=== PATIENT | male | born 1965 | race Caucasian/White ===

== ENCOUNTER 2022-09-14 11:56 | Outpatient (OUT) | payer MEDICARE, MEDICAID, SELFPAY ==
[2022-09-14 12:43] LABS: Basophils Absolute Auto 0.1 10^3/uL (0.0-0.1); Basophils Percent Auto 1.4 % (0.2-2.0); Eosinophils Absolute Auto 0.2 10^3/uL (0.0-0.7); Hematocrit 50.3 % (42.0-54.0); Hemoglobin 15.9 g/dL (14.0-18.0); Immature Granulocytes Abs Auto 0.06 10^3/uL (0.00-0.03); Immature Granulocytes Pct Auto 1.2 % (0.0-0.5); Lymphocytes Absolute Auto 1.2 10^3/uL (1.2-3.8); Lymphocytes Percent Auto 24.6 % (20.5-60.0); Mean Corpuscular HGB Conc 31.6 g/dL (29.9-35.2); Mean Corpuscular Hemoglobin 26.6 pg (25.9-34.0); Mean Corpuscular Volume 84.1 fL (80.0-94.0); Monocytes Absolute Auto 0.4 10^3/uL (0.3-0.8); Monocytes Percent Auto 8.4 % (1.7-12.0); Neutrophils Percent Auto 60.4 % (43.0-75.0); Platelet Count 231 10^3/uL (150-450); Red Blood Count 5.98 10^6/uL (4.70-6.10); Red Cell Distribution Width 13.6 % (11.0-15.0)
[2022-09-14 13:00] LABS: Alanine Aminotransferase 20 U/L (16-63); Albumin Globulin Ratio 1.2; Albumin Level 3.9 g/dL (3.4-5.0); Alkaline Phosphatase 84 U/L (46-116); Anion Gap 12.2; Aspartate Amino Transferase 15 U/L (15-37); BUN Creatinine Ratio 11.5; Bilirubin Total 0.8 mg/dL (0.2-1.0); Calcium 9.2 mg/dL (8.5-10.1); Carbon Dioxide 27.2 mmol/L (21.0-32.0); Chloride 102 mmol/L (98-107); Chol HDL Ratio 4.3; Cholesterol 162 mg/dL (<=200); Estimated GFR (African America >60 (>=60); Estimated GFR (Non-African Ame >60 (>=60); Globulin 3.3 g/dL; Glucose 109 mg/dL (74-106); HDL Cholesterol 38 mg/dL (40-60); Potassium 4.4 mmol/L (3.5-5.1); Sodium 137 mmol/L (136-145); Total Protein 7.2 g/dL (6.4-8.2); Triglycerides 144 mg/dL (<=150); VLDL CHOLESTEROL 28.8 mg/dL
== END 2022-09-14 11:57 ==
LOC: LAB 12:01
PROVIDERS: PCP Internal Medicine; Visit Provider Internal Medicine
DX: E78.5 Hyperlipidemia, unspecified (principal); I10 Essential (primary) hypertension
CPT/HCPCS: 36415; 80053; 80061; 85025

== ENCOUNTER 2023-03-02 13:32 | Outpatient (OUT) | payer MEDICARE, MEDICAID, SELFPAY ==
[2023-03-02 14:19] LABS: Basophils Absolute Auto 0.1 10^3/uL (0.0-0.1); Basophils Percent Auto 1.4 % (0.2-2.0); Eosinophils Absolute Auto 0.3 10^3/uL (0.0-0.7); Hematocrit 50.4 % (42.0-54.0); Hemoglobin 15.6 g/dL (14.0-18.0); Immature Granulocytes Abs Auto 0.09 10^3/uL (0.00-0.03); Immature Granulocytes Pct Auto 1.6 % (0.0-0.5); Lymphocytes Absolute Auto 1.3 10^3/uL (1.2-3.8); Mean Corpuscular Hemoglobin 26.4 pg (25.9-34.0); Mean Corpuscular Volume 85.4 fL (80.0-94.0); Mean Platelet Volume 10.1 fL (9.5-13.5); Monocytes Absolute Auto 0.5 10^3/uL (0.3-0.8); Monocytes Percent Auto 8.8 % (1.7-12.0); Neutrophils Absolute Auto 3.5 10^3/uL (1.4-6.5); Neutrophils Percent Auto 60.2 % (43.0-75.0); Platelet Count 209 10^3/uL (150-450); Red Cell Distribution Width 13.9 % (11.0-15.0); White Blood Count 5.8 10^3/uL (4.0-11.0)
[2023-03-02 14:36] LABS: Alanine Aminotransferase 21 U/L (16-63); Albumin Level 3.9 g/dL (3.4-5.0); Alkaline Phosphatase 93 U/L (46-116); Anion Gap 14.3; Aspartate Amino Transferase 27 U/L (15-37); Bilirubin Total 0.9 mg/dL (0.2-1.0); Calcium 8.8 mg/dL (8.5-10.1); Carbon Dioxide 25.6 mmol/L (21.0-32.0); Chloride 105 mmol/L (98-107); Estimated GFR (African America >60 (>=60); Estimated GFR (Non-African Ame >60 (>=60); Globulin 3.8 g/dL; Glucose 95 mg/dL (74-106); Potassium 4.9 mmol/L (3.5-5.1); Sodium 140 mmol/L (136-145); Total Protein 7.7 g/dL (6.4-8.2)
--- OUTSIDE RECORDS SUMMARY | 2023-03-17 01:26 | XMS_ITS | CCD ---
Author Name Unknown Address [address] [place] [address] Organization [facility] Care Team Providers Care Computer Systems Security Administrator Name Role Phone PHYSICIAN, DEFAULT Admitting Unavailable PHYSICIAN, DEFAULT Attending Unavailable AICHHOLZ, LULI Primary Care Unavailable PHYSICIAN, DEFAULT Admitting Unavailable PHYSICIAN, DEFAULT Attending Unavailable AICHHOLZ, LULI Primary Care Unavailable PHYSICIAN, DEFAULT Admitting Unavailable PHYSICIAN, DEFAULT Attending Unavailable AICHHOLZ, LULI Primary Care Unavailable PHYSICIAN, DEFAULT Admitting Unavailable PHYSICIAN, DEFAULT Attending Unavailable AICHHOLZ, LULI Primary Care Unavailable Naveen King Physician Unavailable Star Sorenson Primary Care Physician Unavailab le FAWWAD, CABRERA H Consulting Unavailable FAWWAD, CABRERA H Primary Care Unavailable FAWWAD, CABRERA H Admitting Unavailable FAWWAD, CABRERA H Attending Unavailable DR ILYA MORROW Consulting Unavailable FAWWAD, CABRERA H Primary Care Unavailable FAWWAD, CABRERA H Admitting Unavailable FAWWAD, CABRERA H Attending Unavailable FAWWAD, CABRERA H Consulting Unavailable AKILAH ELENA Admitting Unavailable FAWWAD, CABRERA H Primary Care Unavailable AKILAH ELENA Attending Unavailable DR ILYA MORROW Consulting Unavailable AKILAH ELENA Consulting Unavailable GUSTAVO VILLEDA Admitting Unavailable PARAMJIT RUIZ Consulting Unavailable FAWWAD, CABRERA H Primary Care Unavailable GUSTAVO VILLEDA Attending Unavailable EDGAR MASSEY Consulting Unavailable ANTWAN GUERRERO Consulting Unavailable BRYSON, EDGAR Admitting Unavailable FAWWAD, CABRERA H Primary Care Unavailable EDGAR MASSEY Attending Unavailable BRYSON, EDGAR Consulting Unavailable FAWWAD, CABRERA H Consulting Unavailable FAWWAD, CABRERA H Primary Care Unavailable FAWWAD, CABRERA H Admitting Unavailable FAWWAD, CABRERA H Attending Unavailable Shaikh Dela Cruz Unavailable Allergies Allergy Classification Reported Allergen(s) Allergy Type Date of Onset Reaction(s) Facility (2 sources) Amoxicillin; Translations: [Amoxicillin] Drug Allergy 4 Unknown Reaction [facility] (2 sources) Ampicillin; Translations: [Ampicillin] Drug Allergy 4 Unknown Reaction [facility] (1 source) Sulfonamides (Antibiotic) Allergy to Substance 8 Unknown Reaction [facility] (1 source) Chocolate Drug allergy (disorder) 5 [facility] (1 source) Clofazimine Drug Allergy [facility] (1 source) Hops extract Drug Allergy [facility] (1 source) Penicillins Drug allergy (disorder) 4 [facility] (1 source) Sulfonamides (Antibiotic) Drug allergy (disorder) 4 [facility] (1 source) Misc-Food; Translations: [Misc-Food] Food allergy (disorder) 0 [facility] Medications Completed/Discontinued Medications Medication Drug Class(es) Dates Sig (Normalized) Sig (Original) ciprofloxacin 500 mg oral tablet (2 sources) Quinolone Antimicrobial Start: 09-17-2017 take 500 mg by mouth twice daily Ciprofloxacin Hcl [Cipro] 500 MG Oral Twice daily September 17, 2017 Active dicyclomine hydrochloride 20 mg oral tablet (1 source) Anticholinergic Start: 09-14-2021 take 1 tablet by mouth three times daily Dicyclomine HCl - 20 MG Oral Tablet take 1 tablet by mouth three times a day Quantity: 21 Refills: 0 Ordered: 07-Oct-2021 DO Start : 14-Sep-2021 Active doxycycline hyclate 100 mg oral capsule (1 source) Tetracycline-class Drug Start: 11-10-2021 take 1 capsule by mouth twice daily Doxycycline Hyclate 100 MG Oral Capsule take 1 capsule by mouth twice a day Quantity: 20 Refills: 0 Ordered: 10-Nov-2021 DO Start : 10-Nov-2021 Active metroNIDAZOLE 500 mg oral tablet (2 sources) Nitroimidazole Antimicrobial Start: 09-17-2017 End: 09-24-2017 take 500 mg by mouth every eight hours Metronidazole [Flagyl] 500 MG Oral Q8H 16 10September 17, 2017 September 24, 2017 Discontinued naproxen 500 mg oral tablet (2 sources) Nonsteroidal Anti-inflammatory Drug Start: 09-17-2017 take 500 mg by mouth every twelve hours at mealtime Naproxen [Naprosyn] 500 MG Oral Q12H September 17, 2017 Active administer with food or milk potassium chloride 10 meq extended release oral tablet (1 source) Start: 08-07-2021 Potassium Chloride ER 10 MEQ Oral Tablet Extended Release Quantity: 90 Refills: 0 Ordered: 16-Jun-2022 DO Start : 07-Aug-2021 Active promethazine hydrochloride 25 mg oral tablet (2 sources) Phenothiazine Start: 09-17-2017 take 25 mg by mouth every six hours as needed for nausea Promethazine 25 MG Oral Q6H PRN For Nausea September 17, 2017 Active 24 hr propranolol hydrochloride 120 mg extended release oral capsule (1 source) beta-Adrenergic Neymar Start: 07-20-2022 take 1 capsule by mouth every twenty-four hours Propranolol HCl ER 120 MG Oral Capsule Extended Release 24 Hour Quantity: 30 Refills: 0 Ordered: 20-Jul-2022 DO Start : 20-Jul-2022 Active rosuvastatin calcium 20 mg oral tablet (2 sources) HMG-CoA Reductase Inhibitor Start: 07-20-2022 Rosuvastatin Calcium 20 MG Oral Tablet Quantity: 90 Refills: 0 Ordered: 20-Jul-2022 DO Start : 20-Jul-2022 Active Start: 08-07-2021 Rosuvastatin C alcium 10 MG Oral Tablet Quantity: 90 Refills: 0 Ordered: 16-Jun-2022 DO Start : 07-Aug-2021 Active tiZANidine 4 mg oral tablet (1 source) Central alpha-2 Adrenergic Agonist Start: 04-25-2021 tiZANidine HCl - 4 M G Oral Tablet Quantity: 90 Refills: 0 Ordered: 04-Aug-2021 DO Start : 25-Apr-2021 Active traZODone hydrochloride 50 mg oral tablet (1 source) Serotonin Reuptake Inhibitor Start: 04-25-2021 traZODone HCl - 50 M G Oral Tablet Quantity: 90 Refills: 0 Ordered: 18-Aug-2021 DO Start : 25-Apr-2021 Active Problems Active Problems Problem Classification Problem Date Documented Da te Episodic/Chronic Acute cerebrovascular disease (1 source) Ischemic stroke; Translations: [Cerebral artery occlusion, unspecified with cerebral infarction] Chronic Anxiety disorders (1 source) Anxiety disorder, unspecified; Translations: [ANXIETY DISORDER UNSPECIFIED] Onset: 11-11-2021 Chronic Diseases of white blood cells (4 sources) Disorder of white blood cells, unspecified; Translations: [DISORDER OF WHITE BLOOD CELLS UNS] Onset: 10-10-2021 Chronic Disorders of lipid metabolism (4 sources) Hyperlipidemia, unspecified; Translations: [HYPERLIPIDEMIA UNSPECIFIED] Onset: 07-23-2021 Chronic E Codes: Struck by; against (1 source) Striking against or struck by other objects, initial encounter; Translations: [STRIKING AGNST/STRUCK OTH OBJ INIT] Onset: 11-11-2021 Episodic Esophageal disorders (1 source) Gastro-esophageal reflux disease without esophagitis; Translations: [GERD WITHOUT ESOPHAGITIS] Onset: 11-11-2021 Chronic Essential hypertension (1 source) Essential (primary) hypertension; Translations: [ESSENTIAL PRIMARY HYPERTENSION] Onset: 11-11-2021 Chronic Immunizations and screening for infectious disease (1 source) Encounter for immunization; Translations: [ENCOUNTER FOR IMMUNIZATION] Onset: 11-11-2021 Episodic Mood disorders (1 source) Major depressive disorder, single episode, unspecified; Translations: [AUNG DEPRESS D/O SINGLE EPIS UNS] Onset: 11-11-2021 Chronic Occlusion or stenosis of precerebral arteries (4 sources) Occlusion and stenosis of bilateral carotid arteries; Translations: [OCCLUSION AND STENOS DANIELLE CAROTID ART] Onset: 01-03-2021 Chronic Open wounds of extremities (4 sources) Laceration without foreign body, left foot, initial encounter; Translations: [LACERATION W/O FB LT FOOT INITIAL] Onset: 11-09-2021 Episodic Osteoarthritis (1 source) Unspecified osteoarthritis, unspecified site; Translations: [UNSPECIFIED OSTEOARTHRITIS UNS SITE] Onset: 11-11-2021 Chronic Other aftercare (1 source) [facility] (current) use of aspirin; Translations: [PROJECT PRODUCTION ENGINEER 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 USE OF ASPIRIN] Onset: 11-11-2021 Episodic Other aftercare (1 source) Other intermediate manager (current) drug therapy; Translations: [OTH PROJECT PRODUCTION ENGINEER CURRENT DRUG THERAPY] Onset: 11-11-2021 Episodic Other connective tissue disease (1 source) Fibromyalgia; Translations: [FIBROMYALGIA] Onset: 11-11-2021 Episodic Other lower respiratory disease (1 source) Personal history of pneumonia (recurrent); Translations: [PERSONAL HX OF PNEUMONIA RECURRENT] Onset: 11-11-2021 Episodic Other nervous system disorders (1 source) Polyneuropathy, unspecified; Translations: [POLYNEUROPATHY UNSPECIFIED] Onset: 11-11-2021 Chronic Other nutritional; endocrine; and metabolic disorders (1 source) H/O: raised blood lipids; Translations: [Personal history of other endocrine, metabolic, and immunity disorders] Episodic Other screening for suspected conditions (not mental disorders or infectious disease) (4 sources) Abnormal findings on diagnostic imaging of other specified body structures; Translations: [ABNORML FIND DX IMG OT BODY STRUC] Onset: 12-18-2021 Chronic Residual codes; unclassified (1 source) Acquired absence of other specified parts of digestive tract; Translations: [ACQ ABSENCE OT PART DIGESTV TRACT] Onset: 11-11-2021 Episodic Past or Other Problems Problem Classification Problem Date Documented Da te Episodic/Chronic Abdominal pain (4 sources) Right lower quadrant pain; Translations: [RIGHT LOWER QUADRANT PAIN] Onset: 09-14-2021 Episodic Genitourinary symptoms and ill-defined conditions (1 source) Hematuria, unspecified; Translations: [HEMATURIA UNSPECIFIED] Onset: 09-16-2021 Episodic Nausea and vomiting (1 source) Nausea with vomiting, unspecified; Translations: [NAUSEA WITH VOMITING UNSPECIFIED] Onset: 09-16-2021 Episodic Other gastrointestinal disorders (1 source) Diarrhea, unspecified; Translations: [DIARRHEA UNSPECIFIED] Onset: 09-16-2021 Episodic Screening and history of mental health and substance abuse codes (1 source) Personal history of nicotine dependence; Translations: [PERSONAL HISTORY OF NICOTINE DEPEND] Onset: 09-16-2021 Episodic Results Test Name Value Interpretation Reference Range Facil it Blood Pressure Cuff Sizeon 0 07-23-2022 Adult depression screening assessment No DB-Whqrwkibs-Zys tlake [facility] DO Work Phone: Fall risk assessment b) One or more fall s in the last year ZV-Gbeimhxyx-Dipawdk e [facility] DO Work Phone: Tobacco use status CPHS b) No M I-Ivnajpgfk-Ktiynfnj [facility] DO Work Phone: Blood Pressure Cuff Size Adult OA-Izpcehgvl-Mgsxoyfh [facility] DO Work Phone: CT CHEST WO CONon 12-18-2021 CT CHEST WO CON EXAMINATION: CT CHES T WO CON HISTORY: Imaging result abnormal COMPARISON: CT abdomen pelvis 09/14/2021, CT chest abdomen pelvis 01/12/2011 TECHNIQUE: Axial, Coronal, and Sagittal images were created without the administration of IV contrast material. Dose reduction techniques were achieved by using automated exposure control and/or adjustment of mA and/or kV according to patient size and/or use of iterative reconstruction technique. FINDINGS: LUNGS: No visible pulmonary disease. PLEURA: No mass, effusion, or pneumothorax. VASCULATURE: No abnormality. DAIANA: No mass or adenopathy. MEDIASTINUM: Stable fluid collection within the lower posterior mediastinum posterior heart and along the right margin of the distal esophagus, 3.2 x 2.2 x 3.0 cm CARDIAC: No enlargement or pericardial thickening. AORTA: No aneurysm or dissection. CHEST WALL: No mass or axillary adenopathy. BONES: No bone lesion or fracture. LIMITED ABDOMEN: No suspicious findings. Limited images of the upper abdomen. OTHER: Negative. IMPRESSION: 1. Stable, small nonspecific fluid collection within the posterior inferior mediastinum along the right margin of the esophagus. This is new compared to 2010 and may represent sequela of prior surgery, trauma, or infection. No esophageal wall thickening, thinning, or convincing involvement. Electronically authenticated by: ILYA MORROW Date: 2021-12-18 13:53 Normal [facility] PROTEIN ELECTROPHERESIS URIN E RANDOMon 10-14-2021 Albumin, U 24.0 % Normal [facility] [place] [facility] Comment on above: Performed By: #### U PTE #### [facility] [address] [place] [address] Dr. Georgina Urbina Alpha-1 Globulin U 9.8 % Normal [facility] Comment on above: Performed By: #### U PTE #### [facility] [address], [place] [address] Dr. Georgina Urbina Alpha-2 Glubulin U 21.5 % Normal [facility] Comment on above: Performed By: #### U PTE #### [facility] [address] [place] [address] [address] Georgina Urbina Beta Globulin, U 27.8 % Normal [facility] Comment on above: Performed By: #### U PTE #### [facility] [address] [address] [address] Georgina Urbina Gamma Globulin U 16.9 % Normal [facility] Comment on above: Performed By: #### U PTE #### [facility] [address] [place] [address] Dr. Georgina Urbina M-Marlo, % Not Observed Normal Not Observed [facility] Comment on above: Performed By: #### U PTE #### [facility] [address] [place] [address] Dr. Georgina Urbina PDF . Normal [facility] [place] [facility] Comment on above: Performed By: #### U PTE #### [facility] [address] [place] [address] Dr. Georgina Urbina Please note: Comment Normal [facility] Comment on above: Result Comment: Prot ein electrophoresis scan will follow via computer, mail, or seamstress fitter delivery. Performed By: #### U PTE #### [facility] [address] [place] [address] Dr. Georgina Urbina Protein (U) [Mass/Vol] 7.2 mg/dL Normal Not Estab. Th [facility] Comment on above: Performed By: #### U PTE #### [facility] [address] [place] [address] Dr. Georgina Urbina IMMUNOFIXATION ELEC, PROTEIN ELECon 10-13-2021 Albumin [Mass/Vol] 3.8 g/dL Normal 2.9-4.4 [facility] Comment on above: Performed By: #### I MFXPRT #### [facility] [address] [place] [address] Dr. Georgina Urbina Albumin/Globulin [Mass ratio] 1.4 {ratio} Normal 0.7-1 .7 [facility] Comment on above: Performed By: #### I MFXPRT #### [facility] [address] [address] [address] Georgina Urbina Asmvk-6-Ykqocswi 0.3 g/dL Normal 0.0-0.4 [facility] Comment on above: Performed By: #### I MFXPRT #### [facility] [address] [place] [address] Dr. Georgina Urbina Hbfkj-3-Crzjlpyj 0.6 g/dL Normal 0.4-1.0 [facility] Comment on above: Performed By: #### I MFXPRT #### [facility] [address] [place] [address] Dr. Georgina Urbina Beta Globulin 1.2 g/dL Normal 0.7-1.3 [facility] Comment on above: Performed By: #### I MFXPRT #### [facility] [address] [place] [address] Dr. Georgina Urbnia Gamma Globulin 0.7 g/dL Normal 0.4-1.8 [facility] Comment on above: Performed By: #### I MFXPRT #### [facility] [address] [place] [address] Dr. Georgina Urbina Globulin (S) [Mass/Vol] 2.8 g/dL Normal 2.2-3.9 [facility] Comment on above: Performed By: #### I MFXPRT #### [facility] [address] [place] [address] Dr. Georgina Urbina Immunofixation Result, Serum Comment Normal [facility] Comment on above: Result Comment: No m onoclonality detected. Performed By: #### I MFXPRT #### [facility] [address] [place] [address] Dr. Georgina Urbina Immunoglobulin A, Qn, Serum 199 mg/dL Normal 90-386 [facility] Comment on above: Performed By: #### I MFXPRT #### [facility] [address] [place] [address] Dr. Georgina Urbina Immunoglobulin G, Qn, Serum 780 mg/dL Normal 603-1613 [facility] Comment on above: Performed By: #### I MFXPRT #### [facility] [address] [place] [address] Dr. Georgina Urbina Immunoglobulin M, Qn, Serum 50 mg/dL Normal 20-172 [facility] Comment on above: Performed By: #### I MFXPRT #### [facility] [address] [place] [address] Dr. Georgina Urbina M-Marlo Not Observed Normal Not Observed [facility] Comment on above: Performed By: #### I MFXPRT #### [facility] [address] [place] [address] Dr. Georgina Urbina PDF . Normal [facility] [place] [facility] Comment on above: Performed By: #### I MFXPRT #### [facility] [address] [place] [address] Dr. Georgina Urbina Please note: Comment Normal [facility] Comment on above: Result Comment: Prot ein electrophoresis scan will follow via computer, mail, or seamstress fitter delivery. Performed By: #### I MFXPRT #### [facility] [address] [place] [address] Dr. Georgina Urbina Protein [Mass/Vol] 6.6 g/dL Normal 6.0-8.5 [facility] Comment on above: Performed By: #### I MFXPRT #### [facility] [address] [place] [address] Dr. Georgina Urbina IMMUNOGLOBULINS IGA/IGM/IGG QUANTITATIVEon 10-11-2021 Immunoglobulin A, Qn, Serum 200 mg/dL Normal 90-386 [facility] Comment on above: Performed By: #### I MFXPRT #### [facility] [address] [place] [address] Dr. Georgina Urbina Immunoglobulin G, Qn, Serum 767 mg/dL Normal 603-1613 [facility] Comment on above: Performed By: #### I MFXPRT #### [facility] [address] [place] [address] Dr. Georgina Urbina Immunoglobulin M, Qn, Serum 58 mg/dL Normal 20-172 [facility] Comment on above: Performed By: #### I MFXPRT #### [facility] [address] [place] [address] Dr. Georgina Urbina CBC AUTO DIFFon 09-14-2021 BASO # 0.1 103/ul Normal 0.0-0.1 [facility] [place] [facility] Comment on above: Performed By: #### I MFXPRT #### [facility] [address] [place] [address] Dr. Georgina Urbina Basophils/100 WBC (Bld) 0.7 % Normal 0.2-2.0 [facility] Comment on above: Performed By: #### I MFXPRT #### [facility] [address] [place] [address] Dr. Georgina Urbina EO # 0.1 103/ul Normal 0.0-0.7 [facility] Comment on above: Performed By: #### I MFXPRT #### [facility] [address] [place] [address] Dr. Georgina Urbina Eosinophils/100 WBC (Bld) 0.9 % Normal 0.9-7.0 [facility] Comment on above: Performed By: #### I MFXPRT #### [facility] [address] [place] [address] Dr. Georgina Urbina Erythrocyte distribution wid th (RBC) [Ratio] 13.5 % Normal 11.0-15.0 [facility] Comment on above: Performed By: #### I MFXPRT #### [facility] [address] [place] [address] Dr. Georgina Urbina Hematocrit (Bld) [Volume fraction] 46.9 % Normal 4 2.0-54.0 [facility] Comment on above: Performed By: #### I MFXPRT #### [facility] [address] [place] [address] Dr. Georgina Urbina Hemoglobin (Bld) [Mass/Vol] 15.1 g/dL Normal 14.0-18. 0 [facility] Comment on above: Performed By: #### I MFXPRT #### [facility] [address] [place] [address] Dr. Georgina Urbina IG # 0.05 10e3/ul Critically high 0.00-0.03 [facility] Comment on above: Performed By: #### I MFXPRT #### [facility] [address] [place] [address] Dr. Georgina Urbina IG % 0.7 % Critically high 0.0-0.5 [facility] Comment on above: Performed By: #### I MFXPRT #### [facility] [address] [place] [address] Dr. Georgina Urbina LYMPH # 0.6 103/ul Critically low 1.2-3.8 [facility] Comment on above: Performed By: #### I MFXPRT #### [facility] [address] [place] [address] Dr. Georgina Urbina Lymphocytes/100 WBC (Bld) 7.9 % Critically low 20.5-6 0.0 [facility] Comment on above: Performed By: #### I MFXPRT #### [facility] [address] [place] [address] Dr. Georgina Urbina MANUAL DIFF REQ NO Normal [facility] Comment on above: Performed By: #### I MFXPRT #### [facility] [address] [place] [address] Dr. Georgina Urbina MCH (RBC) [Entitic mass] 27.3 pg Normal 25.9-34.0 [facility] Comment on above: Performed By: #### I MFXPRT #### [facility] [address] [place] [address] Dr. Georgina Urbina MCHC (RBC) [Mass/Vol] 32.2 g/dL Normal 29.9-35.2 [facility] Comment on above: Performed By: #### I MFXPRT #### [facility] [address] [place] [address] Dr. Georgina Urbina MCV (RBC) [Entitic vol] 84.7 fL Normal 80.0-94.0 [facility] Comment on above: Performed By: #### I MFXPRT #### [facility] [address] [place] [address] Dr. Georgina Urbina MONO # 0.3 103/ul Normal 0.3-0.8 [facility] [place] [facility] Comment on above: Performed By: #### I MFXPRT #### [facility] [address] [place] [address] Dr. Georgina Urbina Monocytes/100 WBC (Bld) 4.3 % Normal 1.7-12.0 [facility] Comment on above: Performed By: #### I MFXPRT #### [facility] [address] [place] [address] Dr. Georgina Urbina NEUT # 6.5 103/ul Normal 1.4-6.5 [facility] [place] [facility] Comment on above: Performed By: #### I MFXPRT #### [facility] [address] [place] [address] Dr. Georgina Urbina Neutrophils/100 WBC (Bld) 85.5 % Critically high 43.0- 75.0 [facility] Comment on above: Performed By: #### I MFXPRT #### [facility] [address] [place] [address] Dr. Georgina Urbina Platelet mean volume (Bld) [Entitic vol] 9.3 fL Critically low 9.5-13.5 [facility] pital Comment on above: Performed By: #### I MFXPRT #### [facility] [address] [place] [address] Dr. Georgina Urbina PLT 194 103/ul Normal 150-450 [facility] [place] [facility] Comment on above: Performed By: #### I MFXPRT #### [facility] [address] [place] [address] Dr. Georgina Urbina RBC 5.54 106/ul Normal 4.70-6.10 [facility] Comment on above: Performed By: #### I MFXPRT #### [facility] [address] [place], [place] [address] Dr. Georgina Urbina WBC 7.6 103/ul Normal 4.0-11.0 [facility] [place] [facility] Comment on above: Performed By: #### I MFXPRT #### [facility] [address] [place], [place] [address] ABD/PELVIS WO CONon 09-14 CT ABD/PELVIS WO CON EXAM: CT SCAN OF TH E ABDOMEN AND PELVIS WITHOUT INTRAVENOUS CONTRAST DATE OF EXAM: 09/14/2021 6:24 PM EDT HISTORY: CALCULUS OF KIDNEY with a 56-year-old male COMPARISON: 01/12/2011 TECHNIQUE: CT examination of the abdomen and pelvis with sagittal and coronal reformations was performed without intravenous contrast. CT dose lowering techniques were used, to include: automated exposure control, adjustment for patient size, and/or use of iterative reconstruction. CONTRAST: None. Note: The exam is limited because some types of pathology may not be adequately demonstrated due to lack of contrast enhancement. FINDINGS: Lower Chest: Normal Free Air: None. Liver: Normal Gallbladder: Removed Common Bile Duct: Normal Pancreas: Normal Spleen: Normal Adrenal Glands: Normal Kidneys: Right Kidney: Nonobstructing stones are seen in the right kidney Right Ureter: Portions of the right ureter which are visualized measure within normal. Left Kidney: Nonobstructing stones left kidney Left Ureter: Portions of the left ureter which are visualized measure within normal limits. GI Tract: Stomach: Normal Small Bowel: Normal Appendix: Normal on coronal image 40 Large Bowel: Scattered diverticula Mesentery/Peritoneum: Normal Vasculature: Normal Lymph Nodes: Normal Abdominal Wall: Normal Bladder: Decompressed Reproductive: Prostate is mildly enlarged Musculoskeletal: Lucency is demonstrated in the posterior right iliac wing Free Fluid: Posterior mediastinal fluid collection measures 32 x 22 mm incompletely imaged IMPRESSION: 1. Nonobstructing bilateral nephrocalcinosis. 2. Normal appendix. 3. Enlarged prostate. Please correlate with patient's PSA. 4. Scattered diverticulosis. 5. Cholecystectomy. 6. Osseous lucency posterior right iliac wing. Please correlate with patient's medical history and labs to exclude etiology such as monoclonal gammopathy. 7. Posterior mediastinal fluid collection, incompletely imaged. CT scan of the chest may help better delineate. May represents a necrotic lymph node versus an esophageal duplication cyst. Electronically authenticated by: ANTWAN GUERRERO Date: 2021-09-14 20:09 Normal [facility] ER URINE PROFILEon 2 Bilirubin Ql (U) Negative Normal NEGATIVE [facility] Comment on above: Performed By: #### I MFXPRT #### [facility] [address] [address] [address] Georgina Urbina Clarity (U) CLEAR Normal CLEAR [facility] Comment on above: Performed By: #### I MFXPRT #### [facility] [address] [address] [address] Georgina Urbina Color (U) YELLOW Normal YELLOW [facility] [place] [facility] Comment on above: Performed By: #### I MFXPRT #### [facility] [address] [place] [address] Dr. Georgina Urbina ERUAHD A micrscopic examina tion will be performed if indicated. Normal [facility] Comment on above: Performed By: #### I MFXPRT #### [facility] [address] [place] [address] Dr. Georgina Urbina Glucose Ql (U) Negative Normal NEGATIVE [facility] Comment on above: Performed By: #### I MFXPRT #### [facility] [address] [place] [address] Dr. Georgina Urbina Hemoglobin Ql (U) LARGE Abnormal NEGATIVE [facility] Comment on above: Performed By: #### I MFXPRT #### [facility] [address] [address] [address] Georgina Urbina Ketones Ql (U) Negative Normal NEGATIVE [facility] Comment on above: Performed By: #### I MFXPRT #### [facility] [address] [address] [address] Georgina Urbina LEUKOCYTES Negative Normal NEGATIVE [facility] [place] [facility] Comment on above: Performed By: #### I MFXPRT #### [facility] [address] [place] [address] Dr. Georgina Urbina Nitrite Ql (U) Negative Normal NEGATIVE [facility] Comment on above: Performed By: #### I MFXPRT #### [facility] [address] [place] [address] Dr. Georgina Urbina pH (U) 5.5 [pH] Normal 5-9 [facility] Comment on above: Performed By: #### I MFXPRT #### [facility] [address] [place] [address] Dr. Georgina Urbina SPEC GRAVITY >=1.030 Abnormal 1.005-<=1.025 [facility] Comment on above: Performed By: #### I MFXPRT #### [facility] [address] [place] [address] Dr. Georgina Urbina UA PROTEIN Negative Normal NEGATIVE/ TRACE [facility] Comment on above: Performed By: #### I MFXPRT #### [facility] [address] [place] [address] Dr. Georgina Urbina UR MICRO IND INDICATED Normal [facility] Comment on above: Performed By: #### I MFXPRT #### [facility] [address] [place] [address] Dr. Georgina Urbina Urobilinogen Qn (U) 0.2 {Davina'U}/dL Normal 0.2 - 1. 0 [facility] Comment on above: Performed By: #### I MFXPRT #### [facility] [address] [place] [address] Dr. Georgina Urbina LACTATE/LACTIC ACIDon 2021 Lactate [Moles/Vol] 1.4 mmol/L Normal 0.4-1.9 [facility] Comment on above: Performed By: #### I MFXPRT #### [facility] [address] [place] [address] Dr. Georgina Urbina Lactate [Moles/Vol] 1.3 mmol/L Normal 0.4-1.9 [facility] Comment on above: Performed By: #### L ACT #### [facility] [address] [place] [address] Dr. Georgina Urbina LIPASEon 09-14-2021 Lipase [Catalytic activity/Vol] 85.0 U/L Normal 73.0 -393.0 [facility] Comment on above: Performed By: #### C MP, LIPA #### [facility] [address] [place] [address] Dr. Georgina Urbina PROF 14(COMP METB)on 022 Albumin [Mass/Vol] 3.6 g/dL Normal 3.4-5.0 [facility] Comment on above: Performed By: #### I MFXPRT #### [facility] [address] [place] [address] Dr. Georgina Urbina Albumin/Globulin [Mass ratio] 1.1 {ratio} Normal [facility] Comment on above: Performed By: #### I MFXPRT #### [facility] [address] [place] [address] Dr. Georgina Urbina ALP [Catalytic activity/Vol] 103 U/L Normal 46-116 [facility] Comment on above: Performed By: #### I MFXPRT #### [facility] [address] [place] [address] Dr. Georgina Urbina ALT [Catalytic activity/Vol] 22 U/L Normal 16-63 [facility] Comment on above: Performed By: #### I MFXPRT #### [facility] [address] [place] [address] Dr. Georgina Urbina Anion gap [Moles/Vol] 14.8 mmol/L Normal [facility] Comment on above: Performed By: #### I MFXPRT #### [facility] [address] [place] [address] Dr. Georgina Urbina AST [Catalytic activity/Vol] 10 U/L Critically low 15- 37 [facility] Comment on above: Performed By: #### I MFXPRT #### [facility] [address] [place] [address] Dr. Georgina Urbina Bilirubin [Mass/Vol] 0.8 mg/dL Normal 0.2-1.0 [facility] Comment on above: Performed By: #### I MFXPRT #### [facility] [address] [address] [address] Georgina Urbina Calcium [Mass/Vol] 8.5 mg/dL Normal 8.5-10.1 [facility] Comment on above: Performed By: #### I MFXPRT #### [facility] [address] [address] [address] Georgina Urbina Chloride [Moles/Vol] 108 mmol/L Critically high 98-107 [facility] Comment on above: Performed By: #### I MFXPRT #### [facility] [address] [place] [address] Dr. Georgina Urbina CO2 [Moles/Vol] 23.6 mmol/L Normal 21.0-32.0 [facility] Comment on above: Performed By: #### I MFXPRT #### [facility] [address] [place] [address] Dr. Georgina Urbina Creatinine [Mass/Vol] 1.23 mg/dL Normal 0.70-1.30 [facility] Comment on above: Performed By: #### I MFXPRT #### [facility] [address] [place] [address] Dr. Georgina Urbina EGFR-AF LIBERIAN >60 Normal >=60 [facility] Comment on above: Performed By: #### I MFXPRT #### [facility] [address] [place] [address] Dr. Georgina Urbina EGFR-NON AF LIBERIAN >60 Normal >=60 [facility] Comment on above: Performed By: #### I MFXPRT #### [facility] [address] [place] [address] Dr. Georgina Urbina Globulin (S) [Mass/Vol] 3.2 g/dL Normal [facility] Comment on above: Performed By: #### I MFXPRT #### [facility] [address] [place] [address] Dr. Georgina Urbina Glucose [Mass/Vol] 139 mg/dL Critically high 74-106 [facility] Comment on above: Performed By: #### I MFXPRT #### [facility] [address] [address] [address] Georgina Urbina Potassium [Moles/Vol] 3.4 mmol/L Critically low 3.5-5.1 [facility] Comment on above: Performed By: #### I MFXPRT #### [facility] [address] [place] [address] Dr. Georgina Urbina Protein [Mass/Vol] 6.8 g/dL Normal 6.4-8.2 [facility] Comment on above: Performed By: #### I MFXPRT #### [facility] [address] [place] [address] Dr. Georgina Urbina Sodium [Moles/Vol] 143 mmol/L Normal 136-145 [facility] Comment on above: Performed By: #### I MFXPRT #### [facility] [address] [place] [address] Dr. Georgina Urbina Urea nitrogen [Mass/Vol] 14.0 mg/dL Normal 7.0-18.0 [facility] Comment on above: Performed By: #### I MFXPRT #### [facility] [address] [place] [address] Dr. Georgina Urbina Urea nitrogen/Creatinine [Mass ratio] 11.4 mg/mg Normal [facility] Comment on above: Performed By: #### I MFXPRT #### [facility] [address] [place] [address] Dr. Georgina Urbina URINE MICROSCOPIC ONLYon BACTERIA NONE SEEN Normal NONE SEEN [facility] Comment on above: Performed By: #### I MFXPRT #### [facility] [address] [place] [address] Dr. Georgina Urbina Bacteria identified Cx Nom (U) NOT INDICATED Normal [facility] Comment on above: Performed By: #### I MFXPRT #### [facility] [address] [place] [address] Dr. Georgina Urbina CAST NONE SEEN Normal NONE SEEN [facility] Comment on above: Performed By: #### I MFXPRT #### [facility] [address] [place] [address] Dr. Georgina Urbina Crystals LM Nom (Urine sed) NONE SEEN Normal NONE SEE N [facility] Comment on above: Performed By: #### I MFXPRT #### [facility] [address] [place] [address] Dr. Georgina Urbina Epithelial cells LM Ql (Urine sed) RARE Normal N ONE SEEN /RARE [facility] Comment on above: Performed By: #### I MFXPRT #### [facility] [address] [place] [address] Dr. Georgina Urbina MUCOUS TRACE Abnormal NONE SEEN [facility] Comment on above: Performed By: #### I MFXPRT #### [facility] [address] [place] [address] Dr. Georgina Urbina RBC 20-50 Abnormal 0-2 [facility] Comment on above: Performed By: #### I MFXPRT #### [facility] [address] [place] [address] Dr. Georgina Urbina WBC 0-2 Abnormal NONE SEEN [facility] Comment on above: Performed By: #### I MFXPRT #### [facility] [address] [place] [address] Dr. Georgina Urbina CBC AUTO DIFFon 07-23-2021 BASO # 0.1 103/ul Normal 0.0-0.1 [facility] Comment on above: Performed By: #### C BC #### [facility] [address] [place] [address] Dr. Georgina Urbina Basophils/100 WBC (Bld) 1.4 % Normal 0.2-2.0 [facility] Comment on above: Performed By: #### C BC #### [facility] [address] [place] [address] Dr. Georgina Urbina EO # 0.3 103/ul Normal 0.0-0.7 [facility] [place] [facility] Comment on above: Performed By: #### C BC #### [facility] [address] [place] [address] Dr. Georgina Urbina Eosinophils/100 WBC (Bld) 4.9 % Normal 0.9-7.0 [facility] Comment on above: Performed By: #### C BC #### [facility] [address] [place] [address] Dr. Georgina Urbina Erythrocyte distribution wid th (RBC) [Ratio] 13.7 % Normal 11.0-15.0 [facility] Comment on above: Performed By: #### C BC #### [facility] [address] [place] [address] Dr. Georgina Urbina Hematocrit (Bld) [Volume fraction] 53.4 % Normal 4 2.0-54.0 [facility] Comment on above: Performed By: #### C BC #### [facility] [address] [place] [address] Dr. Georgina Urbina Hemoglobin (Bld) [Mass/Vol] 16.8 g/dL Normal 14.0-18. 0 [facility] Comment on above: Performed By: #### C BC #### [facility] [address] [place] [address] Dr. Georgina Urbina IG # 0.05 10e3/ul Critically high 0.00-0.03 [facility] Comment on above: Performed By: #### C BC #### [facility] [address] [place] [address] Dr. Georgina Urbina IG % 0.9 % Critically high 0.0-0.5 [facility] Comment on above: Performed By: #### C BC #### [facility] [address] [place] [address] Dr. Georgina Urbina LYMPH # 1.1 103/ul Critically low 1.2-3.8 [facility] Comment on above: Performed By: #### C BC #### [facility] [address] [place] [address] Dr. Georgina Urbina Lymphocytes/100 WBC (Bld) 19.0 % Critically low 20.5-6 0.0 [facility] Comment on above: Performed By: #### C BC #### [facility] [address] [place] [address] Dr. Georgina Urbina MANUAL DIFF REQ NO Normal [facility] Comment on above: Performed By: #### C BC #### [facility] [address] [place] [address] Dr. Georgina Urbina MCH (RBC) [Entitic mass] 26.8 pg Normal 25.9-34.0 [facility] Comment on above: Performed By: #### C BC #### [facility] [address] [place] [address] Dr. Georgina Urbina MCHC (RBC) [Mass/Vol] 31.5 g/dL Normal 29.9-35.2 [facility] Comment on above: Performed By: #### C BC #### [facility] [address] [place] [address] Dr. Georgina Urbina MCV (RBC) [Entitic vol] 85.2 fL Normal 80.0-94.0 [facility] Comment on above: Performed By: #### C BC #### [facility] [address] [place] [address] Dr. Georgina Urbina MONO # 0.5 103/ul Normal 0.3-0.8 [facility] Comment on above: Performed By: #### C BC #### [facility] [address] [place] [address] Dr. Georgina Urbina Monocytes/100 WBC (Bld) 8.3 % Normal 1.7-12.0 [facility] Comment on above: Performed By: #### C BC #### [facility] [address] [place] [address] Dr. Georgina Urbina NEUT # 3.6 103/ul Normal 1.4-6.5 [facility] Comment on above: Performed By: #### C BC #### [facility] [address] [place] [address] Dr. Georgina Urbina Neutrophils/100 WBC (Bld) 65.5 % Normal 43.0-75.0 [facility] Comment on above: Performed By: #### C BC #### [facility] [address] [place] [address] Dr. Georgina Urbina Platelet mean volume (Bld) [ Entitic vol] 10.1 fL Normal 9.5-13.5 [facility] pital Comment on above: Performed By: #### C BC #### [facility] [address] [place] [address] Dr. Georgina Urbina PLT 279 103/ul Normal 150-450 [facility] [place] [facility] Comment on above: Performed By: #### C BC #### [facility] [address] [place] [address] Dr. Georgina Urbina RBC 6.27 106/ul Critically high 4.70-6.10 [facility] Comment on above: Performed By: #### C BC #### [facility] [address] [place] [address] Dr. Georgina Urbina WBC 5.5 103/ul Normal 4.0-11.0 [facility] [place] [facility] Comment on above: Performed By: #### C BC #### [facility] [address] [place] [address] Dr. Georgina Urbina LIPID PROFILEon 07-23-2021 CHOL-HDL RATIO NORM SEE BELOW Normal [facility] Comment on above: Result Comment: 3.3 - 4.4 LOW RISK 4.4 - 7.1 AVERAGE RISK 7.1 - 11.0 MODERATE RISK >11.0 HIGH RISK Performed By: #### L IPID, CMP #### [facility] [address] [place] [address] Dr. Georgina Urbina Cholesterol [Mass/Vol] 176 mg/dL Normal <=200 [facility] Comment on above: Performed By: #### L IPID, CMP #### [facility] [address] [place] [address] Dr. Georgina Urbina Cholesterol in HDL [Mass/Vol] 37 mg/dL Critically low 40 -60 [facility] Comment on above: Performed By: #### L IPID, CMP #### [facility] [address] [place] [address] Dr. Georgina Urbina Cholesterol in LDL [Mass/Vol] 109.8 mg/dL Normal [facility] Comment on above: Performed By: #### L IPID, CMP #### [facility] [address] [address] [address] Georgina Urbina Cholesterol.total/Cholestero l in HDL [Mass ratio] 4.8 {ratio} Normal [facility] Comment on above: Performed By: #### L IPID, CMP #### [facility] [address] [address] [address] Georgina Urbina HDL NORMAL > or = 60 mg/dl - LO W CARDIOVASCULAR RISK <40 mg/dl - HIGH CARDIOVASCULAR RISK Normal [facility] Comment on above: Performed By: #### L IPID, CMP #### [facility] [address] [place] [address] Dr. Georgina Urbina LDL CALC NORMAL SEE BELOW Normal [facility] Comment on above: Result Comment: <100 mg/dl OPTIMAL 100 - 129 mg/dl NEAR OR ABOVE OPTIMAL 130 - 159 mg/dl BORDERLINE HIGH 160 - 189 mg/dl HIGH >190 mg/dl VERY HIGH Performed By: #### L IPID, CMP #### [facility] [address] [place] [address] Dr. Georgina Urbina Triglyceride [Mass/Vol] 146 mg/dL Normal <=150 T [facility] Comment on above: Performed By: #### L IPID, CMP #### [facility] [address] [place] [address] Dr. Georgina Urbina VLDL CALC 29.2 mg/dL Normal [facility] [place] [facility] Comment on above: Performed By: #### L IPID, CMP #### [facility] [address] [place] [address] Dr. Georgina Urbina PROF 14(COMP METB)on 022 Albumin [Mass/Vol] 4.4 g/dL Normal 3.4-5.0 [facility] Comment on above: Performed By: #### L IPID, CMP #### [facility] [address] [place] [address] Dr. Georgina Urbina Albumin/Globulin [Mass ratio] 1.3 {ratio} Normal [facility] Comment on above: Performed By: #### L IPID, CMP #### [facility] [address] [address] [address] Georgina Urbina ALP [Catalytic activity/Vol] 95 U/L Normal 46-116 [facility] Comment on above: Performed By: #### L IPID, CMP #### [facility] [address] [address] [address] Georgina Urbina ALT [Catalytic activity/Vol] 20 U/L Normal 16-63 [facility] Comment on above: Performed By: #### L IPID, CMP #### [facility] [address] [address] [address] Georgina Urbina Anion gap [Moles/Vol] 14.0 mmol/L Normal [facility] Comment on above: Performed By: #### L IPID, CMP #### [facility] [address] [place] [address] Dr. Georgina Urbina AST [Catalytic activity/Vol] 14 U/L Critically low 15- 37 [facility] Comment on above: Performed By: #### L IPID, CMP #### [facility] [address] [address] [address] Georgina Urbina Bilirubin [Mass/Vol] 1.0 mg/dL Normal 0.2-1.0 [facility] Comment on above: Performed By: #### L IPID, CMP #### [facility] [address] [address] [address] Georgina Urbina Calcium [Mass/Vol] 9.0 mg/dL Normal 8.5-10.1 [facility] Comment on above: Performed By: #### L IPID, CMP #### [facility] [address] [address] [address] Georgina Urbina Chloride [Moles/Vol] 102 mmol/L Normal 98-107 [facility] Comment on above: Performed By: #### L IPID, CMP #### [facility] [address] [address] [address] Georgina Urbina CO2 [Moles/Vol] 27.4 mmol/L Normal 21.0-32.0 [facility] Comment on above: Performed By: #### L IPID, CMP #### [facility] [address] [address] [address] Georgina Urbina Creatinine [Mass/Vol] 1.19 mg/dL Normal 0.70-1.30 [facility] Comment on above: Performed By: #### L IPID, CMP #### [facility] [address] [address] [address] Georgina Urbina EGFR-AF LIBERIAN >60 Normal >=60 [facility] Comment on above: Performed By: #### L IPID, CMP #### [facility] [address] [address] [address] Georgina Urbina EGFR-NON AF LIBERIAN >60 Normal >=60 [facility] Comment on above: Performed By: #### L IPID, CMP #### [facility] [address] [address] [address] Georgina Urbina Globulin (S) [Mass/Vol] 3.3 g/dL Normal [facility] Comment on above: Performed By: #### L IPID, CMP #### [facility] [address] [address] [address] Georgina Urbina Glucose [Mass/Vol] 113 mg/dL Critically high 74-106 [facility] Comment on above: Performed By: #### L IPID, CMP #### [facility] [address] [address] [address] Georgina Urbina Potassium [Moles/Vol] 4.4 mmol/L Normal 3.5-5.1 [facility] Comment on above: Performed By: #### L IPID, CMP #### [facility] [address] [address] [address] Georgina Urbina Protein [Mass/Vol] 7.7 g/dL Normal 6.1-8.2 [facility] Comment on above: Performed By: #### L IPID, CMP #### [facility] [address] [address] [address] Georgina Urbina Sodium [Moles/Vol] 139 mmol/L Normal 136-145 [facility] Comment on above: Performed By: #### L IPID, CMP #### [facility] [address] [place], [place] [address] Dr. Georgina Urbina Urea nitrogen [Mass/Vol] 11.0 mg/dL Normal 7.0-18.0 [facility] Comment on above: Performed By: #### L IPID, CMP #### [facility] [address] [place], [place] [address] Dr. Georgina Urbina Urea nitrogen/Creatinine [Mass ratio] 9.2 mg/mg Normal [facility] Comment on above: Performed By: #### L IPID, CMP #### [facility] [address] [place], [place] [address] Dr. Georgina Urbina US CAROTID ART BILon 021 US CAROTID ART DANIELLE EXAMINATION: US FOY TID ART DANIELLE HISTORY: Bilateral carotid artery occlusion COMPARISON: No relevant comparison available. TECHNIQUE: Duplex Doppler ultrasound analysis of carotid and vertebral arteries. . Bilateral carotid arterial duplex examination was performed using B-mode, color flow and spectral analysis. Carotid stenosis is reported according to validated velocity parameters, similar to NASCET criteria. FINDINGS: RIGHT CAROTID ARTERY: Mild plaque without significant stenosis. RIGHT VERTEBRAL: Reversal of normal flow. Subclavian: PSV: 73.7 cm/s EDV: 0.0 cm/s CCA: Prox: PSV: 90.4 cm/s EDV: 20.7 cm/s Mid: PSV: 69.5 cm/s EDV: 20.7 cm/s Distal: PSV: 64.4 cm/s EDV: 24.1 cm/s BULB: PSV: 53.1 cm/s EDV: 22.4 cm/s ICA: Prox: PSV: 45.1 cm/s EDV: 17.6 cm/s Mid: PSV: 83.8 cm/s EDV: 32.1 cm/s Distal: PSV: 83.8 cm/s EDV: 25.7 cm/s ECA: PSV: 83.8 cm/s EDV: 11.1 cm/s VERTEBRAL: PSV: 16.2 cm/s EDV: 0.6 cm/s ICA/CCA ratio: PSV: 1.3 EDV: 1.3 LEFT CAROTID ARTERY: Mild plaque without significant stenosis. LEFT VERTEBRAL: Antegrade flow. Subclavian: PSV: 85.2 cm/s EDV: 0.0 cm/s CCA: Prox: PSV: 106.4 cm/s EDV: 20.1 cm/s Mid: PSV: 108.7 cm/s EDV: 28.0 cm/s Distal: PSV: 59.5 cm/s EDV: 18.1 cm/s BULB: PSV: 39.8 cm/s EDV: 14.2 cm/s ICA: Prox: PSV: 43.7 cm/s EDV: 16.1 cm/s Mid: PSV: 55.5 cm/s EDV: 24.0 cm/s Distal: PSV: 59.4 cm/s EDV: 26.0 cm/s ECA: PSV: 110.6 cm/s EDV: 22.0 cm/s VERTEBRAL: PSV: 73.2 cm/s EDV: 18.1 cm/s ICA/CCA ratio: PSV: 1.0 EDV: 1.4 IMPRESSION: 1. 0-49% flow stenosis within the right left carotid arteries. 2. 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 3. 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 Spectral Doppler US Thresholds Stenosis (%) PSV (cm/sec) VICA/VCCA 0-49 <150 <2.5 50-69 150-225 2.5-4.0 >70 >225 >4.0 Electronically authenticated by: ILYA MORROW Date: 2021-01-03 16:55 Normal [facility] Laboratory Studieson 018 Amphetamines Ql (U) Negative [facility] Barbiturates Ql (U) Negative [facility] Benzodiazepines Ql (U) [facility] Bilirubin Ql (U) Negative [facility] Cannabinoids Screen Ql (U) Negative [facility] Comment on above: These are unconfirme d results and should not be used for legal purposes. Drug Cut-Off Concentration: AMPH 1000 ng/mL GOYO 200 ng/mL JARAD 200 ng/mL COCM 300 ng/mL OP 300 ng/mL PCP 25 ng/mL THC 20 ng/mL Clarity Refractometry automated Nom (U) Clear [facility] Cocaine Ql (U) Negative [facility] Color Nom (U) Yellow [facility] Glucose Automated test strip mass conc (U) Normal mg/dL [facility] Hemoglobin Automated test strip Ql (U) Negative [facility] Ketones mass conc (U) Negative [facility] Leukocyte esterase Automated test strip Ql (U) Negative [facility] Nitrite Ql (U) Negative [facility] Opiates Ql (U) Negative [facility] pH (U) 7.0 [pH] 5.0-9.0 [facility] Phencyclidine Ql (U) Negative [facility] Protein mass conc (U) Negative [facility] Specific gravity Relative Density (U) 1.022 1.001-1.030 [facility] Urobilinogen mass conc (U) Normal mg/dL [facility] Albumin mass conc 3.4 g/dL 3.2-5.5 [facility] Albumin/Globulin mass ratio 1.5 {ratio} [facility] ALP enzyme act/vol 79 U/L 32-92 [facility] ALT No additional P-5'-P enzyme act/vol 19 U/L 10-60 [facility] Amylase enzyme act/vol 57 U/L 28-100 [facility] aPTT Coag time (PPP) 28.3 s 23.0-35.[address] [facility] AST enzyme act/vol 23 U/L 10-42 [facility] Basophils #/vol (Bld) 0.0 10*3/uL 0.0-0.2 [facility] Basophils/100 WBC (Bld) 1.1 % F [facility] Bilirubin mass conc 0.5 mg/dL 0.3-1.2 [facility] Bilirubin.direct mass conc mg/dL 0.0-0.4 [facility] Bilirubin.indirect mass conc TNP [facility] Comment on above: Test not performed Calcium mass conc 9.0 mg/dL 8.2-10.2 [facility] Chloride molar conc 110 mmol/L 95-114 [facility] CK enzyme act/vol 119 U/L 22-269 [facility] CK.MB mass conc 1.4 ng/mL 0.6-6.3 [facility] CK.MB/Creatine kinase.total Calculated CFr 1.1 0.00-2.50 [facility] CO2 molar conc 21.9 mmol/L Low 22.0-30.0 [facility] Creatinine mass conc 1.16 mg/dL 0.64-1.[address] [facility] Eosinophils #/vol (Bld) 0.1 10*3/uL 0.0-0.45 [facility] Eosinophils/100 WBC (Bld) 3.8 % [facility] Erythrocyte distribution width Ratio (RBC) 15.0 % High 12.0-14.8 [facility] Ethanol mass conc TNP [facility] Comment on above: Test not performed Ethanol mass conc mg/dL [facility] Fibrin D-dimer FEU mass conc (PPP) < 200 ng/mL 0-243 [facility] Comment on above: The reference range for D-dimer is <243 ng/mL D-dimer units. D-dimer results must be used in conjunction with a clinical pretest probability (PTP) assessment model for deep vein thrombosis (DVT) and pulmonary embolism (PE). Results <233 ng/mL d-dimer units can be used as a negative predictor in patients with low or moderate probability for DVT/PE. Results above the exclusion threshold of 233 ng/ml D-dimer units for DVT/PE may indicate the need for further diagnostic testing. D-Dimer can be increased in hospitalized patients due to co-morbid conditions. GFR/1.73 sq M predicted paco g blacks MDRD vol rate/area (S/P/Bld) mL/min/{1.73_m2} [facility] Comment on above: GFR estimated refere nce range: According to KDOQI guidelines, <60 ml/min/1.73m2 is sufficient to diagnose a patient with chronic kidney disease. GFR/1.73 sq M predicted among non-blacks MDRD vol rate/area (S/P/Bld) mL/min/{1.73_m2} [facility] Globulin mass conc (S) 2.3 g/dL [facility] Glucose mass conc 106 mg/dL High 70-100 [facility] Comment on above: ADA recommended refe rence range Random Glucose Reference Range is dependent on time and content of last meal. Glucose of more than 200 mg/dL in a nonstressed, ambulatory subject supports the diagnosis of Diabetes Mellitus. Hematocrit Volume Fraction (Bld) 40.6 % 38.8-50.0 [facility] Hemoglobin mass conc (Bld) 13.3 g/dL 13.0-17.0 [facility] INR Coag RelTime (PPP) 1.0 {INR} [facility] Comment on above: INR Therapeutic Rang e A) Pre- and Peroperative OAT started two weeks before surgery. NOT HIP SURGERY: 1.5 - 2.5 HIP SURGERY: 2 - 3 B) Primary and secondary prevention of venous THROMBOSIS: 2 - 3 C) Active venous thrombosis, pulmonary embolism and prevention of recurrent venous thrombosis: 2 - 3 D) Prevention of arterial thromboembolism including patients with mechanical heart valves: 3 - 4.5 Lipase enzyme act/vol 29.0 U/L 22-51 [facility] Lymphocytes #/vol (Bld) 1.1 10*3/uL 1.00-4.8 [facility] Lymphocytes/100 WBC (Bld) 29.1 % [facility] Magnesium molar conc (Unsp spec) 1.8 mg/dL 1.6-2.6 [facility] MCH Entitic mass (RBC) 26.8 pg Low 27.5-35.2 [facility] MCHC mass conc (RBC) 32.7 g/dL 32.5-35.[address] [facility] MCV Entitic volume (RBC) 81.8 fL Low 83.5-101 [facility] Monocytes #/vol (Bld) 0.3 10*3/uL 0.0-0.8 [facility] Monocytes/100 WBC (Bld) 8.6 % [facility] Neutrophils #/vol (Bld) 2.2 10*3/uL 1.8-7.7 [facility] Neutrophils/100 WBC (Bld) 57.4 % [facility] Creatinine Clearance (Chem N/A [facility] Platelet mean volume Entitic volume (Bld) 7.1 fL 6.6-10.1 [facility] Platelets #/vol (Bld) 232 10*3/uL 150-450 [facility] Potassium molar conc 4.1 mmol/L 3.5-5.[address] [facility] Protein mass conc 5.7 g/dL Low 6.1-7.9 [facility] Prothrombin time (PT) Coag time (PPP) 10.6 s 9.0-12.9 [facility] RBC #/vol (Bld) 4.96 10*6/uL 3.90-5.60 [facility] Sodium molar conc 140 mmol/L 136-146 [facility] Troponin I.cardiac mass conc ng/mL 0-0.02 [facility] Comment on above: ENRIQUE [facility] Cut off value > or equal to 0.03 ng/mL in conjunction with clinical conditions of myocardial infarction. ([email or web address].org/guidelines) Urea nitrogen mass conc 9 mg/dL 9-23 [facility] WBC #/vol (Bld) 3.8 10*3/uL Low 4.5-11.0 [facility] Troponin I.cardiac mass conc 0.00 ng/mL 0.00-0.03 [facility] Comment on above: ER/ESD physician is notified/shown all ISTAT results. Critical values may be confirmed by laboratory testing if deemed necessary by ER attending doctor. Vital Signs Date Time Vital Sign Value Performing Clinician Facility 07-23-2022 15:01-0400 Body height 173.99 cm Shaikh Lanie Work Phone: [facility] [employer] [facility] Work Phone: 07-23-2022 15:01-0400 Body mass index (BMI) [Ratio] 32.57 kg/m2 [facility] Work Phone: [facility]an[facility] [employer] [facility] Work Phone: 07-23-2022 15:01-0400 Body surface area Derived from formula 2.13 m2 [facility] [employer] Work Phone: [facility]xorwi[facility] [employer] [facility] Work Phone: 07-23-2022 15:01-0400 Body temperature 96.4 [degF] [facility] [employer] Work Phone: [facility]ia[facility] [employer] [facility] Work Phone: 07-23-2022 15:01-0400 Body weight 98.6 kg Shaikh [employer] [employer] Work Phone: [facility]Gfcfcwkah[facility] Work Phone: 07-23-2022 15:01-0400 Diastolic blood pressure 109 mm[Hg] Shaikh Lanie Work Phone: [facility]suyqmo[facility] Work Phone: 07-23-2022 15:01-0400 Heart rate 75 /min Shaikh Lanie Work Phone: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
== END 2023-03-02 13:33 | disposition home or self-care (01) ==
PROVIDERS: PCP Internal Medicine; Visit Provider Internal Medicine
DX: E78.5 Hyperlipidemia, unspecified (principal); I10 Essential (primary) hypertension
CPT/HCPCS: 36415; 80053; 85025

== ENCOUNTER 2023-03-02 13:54 | Outpatient (OUT) | payer MEDICARE, MEDICAID, SELFPAY ==
[2023-03-02 14:29] LABS: Protein Creatinine Ratio Urine 0.13; Total Protein Urine Random 21.9 mg/dL (<=11.9)
[2023-03-02 14:35] LABS: Chol HDL Ratio 3.6; Cholesterol 162 mg/dL (<=200); HDL Cholesterol 45 mg/dL (40-60); LDL Cholesterol Calculated 98.6 mg/dL; Triglycerides 92 mg/dL (<=150); VLDL CHOLESTEROL 18.4 mg/dL
--- NOTE | 2023-03-02 14:48 | XR_ITS ---
[address] [address] Patient Name: TAJ KOTHARI MRN: [id number] date: 1965 Sex: M Assigned Patient Location: LAB Current Patient Location: LAB Accession/Order Number: [id number] Exam Date: 03/02/2023 14:30 Report Date: 03/02/2023 20:07 At the request of: SHAIKH KAYLEN Procedure: XR knee DANIELLE 4V EXAM: XR knee DANIELLE 4V HISTORY: Bilateral Knee Pain M25.561 COMPARISON: Right knee radiograph dated 11/25/2012 TECHNIQUE: 3 views of the right knee and 3 views of the left knee were obtained. FINDINGS : Right knee: There is severe joint space narrowing with marginal tricompartmental spurring along with spurring of the tibial spines indicating severe osteoarthritis. There is asymmetricprominence of the cortex with evidence of prior surgery as seen in the radiograph dated 11/25/2012.. Left knee: There is mild medial compartment joint space narrowing with marginal spurring along with spurring of the tibial spines. XR/XR knee DANIELLE 4V IMPRESSION: 1. 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 2. Mild osteoarthritis of the left knee. Electronically authenticated by: JAVAN VÁZQUEZ Date: 03/02/2023 20:07
--- OUTSIDE RECORDS SUMMARY | 2023-03-17 01:27 | XMS_ITS | CCD ---
Author Name Unknown Address [address] [place] [address] Organization [facility] Care Team Providers Care Representative Phlebotomy Services Name Role Phone PHYSICIAN, DEFAULT Admitting Unavailable [...] [Amoxicillin] Drug Allergy 4 Unknown Reaction [facility] Repository (2 sources) Ampicillin; Translations: [Ampicillin] Drug Allergy 4 Unknown Reaction [facility] (1 source) Sulfonamides (Antibiotic) Allergy to Substance 8 Unknown Reaction [facility] (1 source) Chocolate Drug allergy (disorder) 5 [facility] (1 source) Clofazimine Drug Allergy [facility] (1 source) Hops extract Drug Allergy [facility] (1 source) Penicillins Drug allergy (disorder) 4 [facility] (1 source) Sulfonamides (Antibiotic) Drug allergy (disorder) 4 [facility] (1 source) Misc-Food; Translations: [Misc-Food] Food allergy (disorder) 0 [facility] Medications Completed/Discontinued Medications Medication Drug Class(es) [...] Onset: 11-11-2021 Chronic Other aftercare (1 source) residential (current) use of aspirin; Translations: [BANK OPERATIONS OFFICER CURRENT USE OF ASPIRIN] Onset: 11-11-2021 Episodic Other aftercare (1 source) Other terminal supervisor (current) drug therapy; Translations: [OTH BANK OPERATIONS OFFICER CURRENT DRUG THERAPY] Onset: 11-11-2021 Episodic Other [...] 0 07-23-2022 Adult depression screening assessment No IA-Pleiyjmup-Dkk tlake [facility] DO Work Phone: Fall risk assessment b) One or more fall s in the last year TV-Karojxfhr-Dqgbqzd e [facility] DO Work Phone: Tobacco use status CPHS b) No M C-Speqfztws-Bedtnemp [facility] DO Work Phone: Blood Pressure Cuff Size Adult SL-Ksodqtxia-Knjuftew [facility] DO Work Phone: CT CHEST WO [...] ILYA MORROW Date: 2021-12-18 13:53 Normal [facility] PROTEIN ELECTROPHERESIS URIN E RANDOMon 10-14-2021 Albumin, U 24.0 % Normal [facility] Comment on above: Performed By: #### U PTE #### [facility] [address] [place] [address] Dr. Georgina Urbina Alpha-1 Globulin U 9.8 % Normal [facility] Comment on above: Performed By: #### U PTE #### [facility] [address], [place] [address] Dr. Georgina Urbina Alpha-2 Glubulin U 21.5 % Normal [facility] Comment on above: Performed By: #### U PTE #### [facility] [address] [address] [address] Georgina Urbina Beta Globulin, U 27.8 % Normal [facility] Comment on above: Performed By: #### U PTE #### [facility] [address] [address] [address] Georgina Urbina Gamma Globulin U 16.9 % Normal [facility] Comment on above: Performed By: #### U PTE #### [facility] [address] [place] [address] Dr. Georgina Urbina M-Marlo, % Not Observed Normal Not Observed [facility] Comment on above: Performed By: #### U PTE #### [facility] [address] [place] [address] Dr. Georgina Urbina PDF . Normal [facility] Comment on above: Performed By: #### U PTE #### [facility] [address] [place] [address] Dr. Georgina Urbina Please note: Comment Normal [facility] Comment on above: Result Comment: Prot ein electrophoresis scan will follow via computer, mail, or forensics team director delivery. Performed By: #### U PTE #### [facility] [address] [place] [address] Dr. Georgina Urbina Protein (U) [Mass/Vol] 7.2 mg/dL Normal Not Estab. Th [facility] Comment on above: Performed By: #### U PTE #### [facility] [address] [place] [address] Dr. Georgina Urbina IMMUNOFIXATION ELEC, PROTEIN ELECon 10-13-2021 Albumin [Mass/Vol] 3.8 g/dL Normal 2.9-4.4 [facility] Comment on above: Performed By: #### I MFXPRT #### [facility] [address] [place] [address] Dr. Georgina Urbina Albumin/Globulin [Mass ratio] 1.4 {ratio} Normal 0.7-1 .7 [facility] Comment on above: Performed By: #### I MFXPRT #### [facility] [address] [address] [address] Georgina Urbina Dtqzx-4-Kaylrxqx 0.3 g/dL Normal 0.0-0.4 [facility] Comment on above: Performed By: #### I MFXPRT #### [facility] [address] [place] [address] Dr. Georgina Urbina Cnivf-4-Qscprfkd 0.6 g/dL Normal 0.4-1.0 [facility] Comment on above: Performed By: #### I MFXPRT #### [facility] [address] [place] [address] Dr. Georgina Urbina Beta Globulin 1.2 g/dL Normal 0.7-1.3 [facility] Comment on above: Performed By: #### I MFXPRT #### [facility] [address] [place] [address] Dr. Georgina Urbina Gamma Globulin 0.7 g/dL Normal 0.4-1.8 [facility] Comment on above: Performed By: #### I MFXPRT #### [facility] [address] [place] [address] Dr. Georgina Urbina Globulin (S) [Mass/Vol] 2.8 g/dL Normal 2.2-3.9 [facility] Comment on above: Performed By: #### I MFXPRT #### [facility] [address] [place] [address] Dr. Georgina Urbina Immunofixation Result, Serum Comment Normal [facility] Comment on above: Result Comment: No m onoclonality detected. Performed By: #### I MFXPRT #### [facility] [address] [place] [address] Dr. Georgina Urbina Immunoglobulin A, Qn, Serum 199 mg/dL Normal 90-386 [facility] Comment on above: Performed By: #### I MFXPRT #### [facility] [address] [place] [address] Dr. Georgina Urbina Immunoglobulin G, Qn, Serum 780 mg/dL Normal 603-1613 [facility] Comment on above: Performed By: #### I MFXPRT #### [facility] [address] [place] [address] Dr. Georgina Urbina Immunoglobulin M, Qn, Serum 50 mg/dL Normal 20-172 [facility] Comment on above: Performed By: #### I MFXPRT #### [facility] [address] [place] [address] Dr. Georgina Urbina M-Marlo Not Observed Normal Not Observed [facility] Comment on above: Performed By: #### I MFXPRT #### [facility] [address] [place] [address] Dr. Georgina Urbina PDF . Normal [facility] Comment on above: Performed By: #### I MFXPRT #### [facility] [address] [place] [address] Dr. Georgina Urbina Please note: Comment Normal [facility] Comment on above: Result Comment: Prot ein electrophoresis scan will follow via computer, mail, or forensics team director delivery. Performed By: #### I MFXPRT #### [facility] [address] [place] [address] Dr. Georgina Urbina Protein [Mass/Vol] 6.6 g/dL Normal 6.0-8.5 [facility] Comment on above: Performed By: #### I MFXPRT #### [facility] [address] [place] [address] Dr. Georgina Urbina IMMUNOGLOBULINS IGA/IGM/IGG QUANTITATIVEon 10-11-2021 Immunoglobulin A, Qn, Serum 200 mg/dL Normal 90-386 [facility] Comment on above: Performed By: #### I MFXPRT #### [facility] [address] [place] [address] Dr. Georgina Urbina Immunoglobulin G, Qn, Serum 767 mg/dL Normal 603-1613 [facility] Comment on above: Performed By: #### I MFXPRT #### [facility] [address] [place] [address] Dr. Georgina Urbina Immunoglobulin M, Qn, Serum 58 mg/dL Normal 20-172 [facility] Comment on above: Performed By: #### I MFXPRT #### [facility] [address] [place] [address] Dr. Georgina Urbina CBC AUTO DIFFon 09-14-2021 BASO # 0.1 103/ul Normal 0.0-0.1 [facility] Comment on above: Performed By: #### I MFXPRT #### [facility] [address] [place] [address] Dr. Georgina Urbina Basophils/100 WBC (Bld) 0.7 % Normal 0.2-2.0 [facility] Comment on above: Performed By: #### I MFXPRT #### [facility] [address] [place] [address] Dr. Georgina Urbina EO # 0.1 103/ul Normal 0.0-0.7 [facility] Comment on above: Performed By: #### I MFXPRT #### [facility] [address] [place] [address] Dr. Georgina Urbina Eosinophils/100 WBC (Bld) 0.9 % Normal 0.9-7.0 [facility] Comment on above: Performed By: #### I MFXPRT #### [facility] [address] [place] [address] Dr. Georgina Urbina Erythrocyte distribution wid th (RBC) [Ratio] 13.5 % Normal 11.0-15.0 The [facility] Comment on above: Performed By: #### I MFXPRT #### [facility] [address] [place] [address] Dr. Georgina Urbina Hematocrit (Bld) [Volume fraction] 46.9 % Normal 4 2.0-54.0 [facility] Comment on above: Performed By: #### I MFXPRT #### [facility] [address] [place] [address] Dr. Georgina Urbina Hemoglobin (Bld) [Mass/Vol] 15.1 g/dL Normal 14.0-18. 0 [facility] Comment on above: Performed By: #### I MFXPRT #### [facility] [address] [place] [address] Dr. Georgina Urbina IG # 0.05 10e3/ul Critically high 0.00-0.03 [facility] Comment on above: Performed By: #### I MFXPRT #### [facility] [address] [place] [address] Dr. Georgina Urbina IG % 0.7 % Critically high 0.0-0.5 [facility] Comment on above: Performed By: #### I MFXPRT #### [facility] [address] [place] [address] Dr. Georgina Urbina LYMPH # 0.6 103/ul Critically low 1.2-3.8 [facility] Comment on above: Performed By: #### I MFXPRT #### [facility] [address] [place] [address] Dr. Georgina Urbina Lymphocytes/100 WBC (Bld) 7.9 % Critically low 20.5-6 0.0 [facility] Comment on above: Performed By: #### I MFXPRT #### [facility] [address] [place] [address] Dr. Georgina Urbina MANUAL DIFF REQ NO Normal [facility] Comment on above: Performed By: #### I MFXPRT #### [facility] [address] [place] [address] Dr. Georgina Urbina MCH (RBC) [Entitic mass] 27.3 pg Normal 25.9-34.0 [facility] Comment on above: Performed By: #### I MFXPRT #### [facility] [address] [place] [address] Dr. Georgina Urbina MCHC (RBC) [Mass/Vol] 32.2 g/dL Normal 29.9-35.2 [facility] Comment on above: Performed By: #### I MFXPRT #### [facility] [address] [place] [address] Dr. Georgina Urbina MCV (RBC) [Entitic vol] 84.7 fL Normal 80.0-94.0 [facility] Comment on above: Performed By: #### I MFXPRT #### [facility] [address] [place] [address] Dr. Georgina Urbina MONO # 0.3 103/ul Normal 0.3-0.8 [facility] Comment on above: Performed By: #### I MFXPRT #### [facility] [address] [place] [address] Dr. Georgina Urbina Monocytes/100 WBC (Bld) 4.3 % Normal 1.7-12.0 [facility] Comment on above: Performed By: #### I MFXPRT #### [facility] [address] [place] [address] Dr. Georgina Urbina NEUT # 6.5 103/ul Normal 1.4-6.5 [facility] Comment on above: Performed By: #### I MFXPRT #### [facility] [address] [place] [address] Dr. Georgina Urbina Neutrophils/100 WBC (Bld) 85.5 % Critically high 43.0- 75.0 [facility] Comment on above: Performed By: #### I MFXPRT #### [facility] [address] [place] [address] Dr. Georgina Urbina Platelet mean volume (Bld) [Entitic vol] 9.3 fL Critically low 9.5-13.5 [facility] pital Comment on above: Performed By: #### I MFXPRT #### [facility] [address] [place] [address] Dr. Georgina Urbina PLT 194 103/ul Normal 150-450 [facility] Comment on above: Performed By: #### I MFXPRT #### [facility] [address] [place] [address] Dr. Georgina Urbina RBC 5.54 106/ul Normal 4.70-6.10 [facility] Comment on above: Performed By: #### I MFXPRT #### [facility] [address], [place] [address] Dr. Georgina Urbina WBC 7.6 103/ul Normal 4.0-11.0 [facility] Comment on above: Performed By: #### I MFXPRT #### [facility] [address], [place] [address] ABD/PELVIS WO CONon [...] ANTWAN GUERRERO Date: 2021-09-14 20:09 Normal [facility] ER URINE PROFILEon 2 Bilirubin Ql (U) Negative Normal NEGATIVE The [facility] Comment on above: Performed By: #### I MFXPRT #### [facility] [address] [address] [address] Georgina Urbina Clarity (U) CLEAR Normal CLEAR [facility] Comment on above: Performed By: #### I MFXPRT #### [facility] [address] [address] [address] Georgina Urbina Color (U) YELLOW Normal YELLOW [facility] Comment on above: Performed By: #### I MFXPRT #### [facility] [address] [place] [address] Dr. Georgina Urbina ERUAHD A micrscopic examina tion will be performed if indicated. Normal [facility] Comment on above: Performed By: #### I MFXPRT #### [facility] [address] [place] [address] Dr. Georgina Urbina Glucose Ql (U) Negative Normal NEGATIVE [facility] Comment on above: Performed By: #### I MFXPRT #### [facility] [address] [place] [address] Dr. Georgina Urbina Hemoglobin Ql (U) LARGE Abnormal NEGATIVE The [facility] Comment on above: Performed By: #### I MFXPRT #### [facility] [address] [address] [address] Georgina Urbina Ketones Ql (U) Negative Normal NEGATIVE [facility] Comment on above: Performed By: #### I MFXPRT #### [facility] [address] [address] [address] Georgina Urbina LEUKOCYTES Negative Normal NEGATIVE [facility] Comment on above: Performed By: #### I MFXPRT #### [facility] [address] [place] [address] Dr. Georgina Urbina Nitrite Ql (U) Negative Normal NEGATIVE [facility] Comment on above: Performed By: #### I MFXPRT #### [facility] [address] [place] [address] Dr. Georgina Urbina pH (U) 5.5 [pH] Normal 5-9 [facility] Comment on above: Performed By: #### I MFXPRT #### [facility] [address] [place] [address] Dr. Georgina Urbina SPEC GRAVITY >=1.030 Abnormal 1.005-<=1.025 [facility] Comment on above: Performed By: #### I MFXPRT #### [facility] [address] [place] [address] Dr. Georgina Urbina UA PROTEIN Negative Normal NEGATIVE/ TRACE [facility] Comment on above: Performed By: #### I MFXPRT #### [facility] [address] [place] [address] Dr. Georgina Urbina UR MICRO IND INDICATED Normal [facility] Comment on above: Performed By: #### I MFXPRT #### [facility] [address] [place] [address] Dr. Georgina Urbina Urobilinogen Qn (U) 0.2 {Davina'U}/dL Normal 0.2 - 1. 0 [facility] Comment on above: Performed By: #### I MFXPRT #### [facility] [address] [place] [address] Dr. Georgina Urbina LACTATE/LACTIC ACIDon 2021 Lactate [Moles/Vol] 1.4 mmol/L Normal 0.4-1.9 [facility] Comment on above: Performed By: #### I MFXPRT #### [facility] [address] [place] [address] Dr. Georgina Urbina Lactate [Moles/Vol] 1.3 mmol/L Normal 0.4-1.9 [facility] Comment on above: Performed By: #### L ACT #### [facility] [address] [place] [address] Dr. Georgina Urbina LIPASEon 09-14-2021 Lipase [Catalytic activity/Vol] 85.0 U/L Normal 73.0 -393.0 [facility] Comment on above: Performed By: #### C MP, LIPA #### [facility] [address] [place] [address] Dr. Georgina Urbina PROF 14(COMP METB)on 022 Albumin [Mass/Vol] 3.6 g/dL Normal 3.4-5.0 [facility] Comment on above: Performed By: #### I MFXPRT #### [facility] [address] [place] [address] Dr. Georgina Urbina Albumin/Globulin [Mass ratio] 1.1 {ratio} Normal [facility] Comment on above: Performed By: #### I MFXPRT #### [facility] [address] [place] [address] Dr. Georgina Urbina ALP [Catalytic activity/Vol] 103 U/L Normal 46-116 [facility] Comment on above: Performed By: #### I MFXPRT #### [facility] [address] [place] [address] Dr. Georgina Urbina ALT [Catalytic activity/Vol] 22 U/L Normal 16-63 [facility] Comment on above: Performed By: #### I MFXPRT #### [facility] [address] [place] [address] Dr. Georgina Urbina Anion gap [Moles/Vol] 14.8 mmol/L Normal [facility] Comment on above: Performed By: #### I MFXPRT #### [facility] [address] [place] [address] Dr. Georgina Urbina AST [Catalytic activity/Vol] 10 U/L Critically low 15- 37 [facility] Comment on above: Performed By: #### I MFXPRT #### [facility] [address] [place] [address] Dr. Georgina Urbina Bilirubin [Mass/Vol] 0.8 mg/dL Normal 0.2-1.0 [facility] Comment on above: Performed By: #### I MFXPRT #### [facility] [address] [address] [address] Georgina Urbina Calcium [Mass/Vol] 8.5 mg/dL Normal 8.5-10.1 [facility] Comment on above: Performed By: #### I MFXPRT #### [facility] [address] [address] [address] Georgina Urbina Chloride [Moles/Vol] 108 mmol/L Critically high 98-107 [facility] Comment on above: Performed By: #### I MFXPRT #### [facility] [address] [place] [address] Dr. Georgina Urbina CO2 [Moles/Vol] 23.6 mmol/L Normal 21.0-32.0 [facility] Comment on above: Performed By: #### I MFXPRT #### [facility] [address] [place] [address] Dr. Georgina Urbina Creatinine [Mass/Vol] 1.23 mg/dL Normal 0.70-1.30 [facility] Comment on above: Performed By: #### I MFXPRT #### [facility] [address] [place] [address] Dr. Georgina Urbina EGFR-AF JORDANIAN >60 Normal >=60 [facility] Comment on above: Performed By: #### I MFXPRT #### [facility] [address] [place] [address] Dr. Georgina Urbina EGFR-NON AF JORDANIAN >60 Normal >=60 [facility] Comment on above: Performed By: #### I MFXPRT #### [facility] [address] [place] [address] Dr. Georgina Urbina Globulin (S) [Mass/Vol] 3.2 g/dL Normal [facility] Comment on above: Performed By: #### I MFXPRT #### [facility] [address] [place] [address] Dr. Georgina Urbnia Glucose [Mass/Vol] 139 mg/dL Critically high 74-106 [facility] Comment on above: Performed By: #### I MFXPRT #### [facility] [address] [address] [address] Georgina Urbina Potassium [Moles/Vol] 3.4 mmol/L Critically low 3.5-5.1 [facility] Comment on above: Performed By: #### I MFXPRT #### [facility] [address] [place] [address] Dr. Georgina Urbina Protein [Mass/Vol] 6.8 g/dL Normal 6.4-8.[address] [facility] Comment on above: Performed By: #### I MFXPRT #### [facility] [address] [place] [address] Dr. Georgina Urbina Sodium [Moles/Vol] 143 mmol/L Normal 136-[address] [facility] Comment on above: Performed By: #### I MFXPRT #### [facility] [address] [place] [address] Dr. Georgina Urbina Urea nitrogen [Mass/Vol] 14.0 mg/dL Normal 7.0-18.0 [facility] Comment on above: Performed By: #### I MFXPRT #### [facility] [address] [place] [address] Dr. Georgina Urbina Urea nitrogen/Creatinine [Mass ratio] 11.4 mg/mg Normal [facility] Comment on above: Performed By: #### I MFXPRT #### [facility] [address] [place] [address] Dr. Georgina Urbina URINE MICROSCOPIC ONLYon BACTERIA NONE SEEN Normal NONE SEEN [facility] Comment on above: Performed By: #### I MFXPRT #### [facility] [address] [place] [address] Dr. Georgina Urbina Bacteria identified Cx Nom (U) NOT INDICATED Normal [facility] Comment on above: Performed By: #### I MFXPRT #### [facility] [address] [place] [address] Dr. Georigna Urbina CAST NONE SEEN Normal NONE SEEN [facility] Comment on above: Performed By: #### I MFXPRT #### [facility] [address] [place] [address] Dr. Georgina Urbina Crystals LM Nom (Urine sed) NONE SEEN Normal NONE SEE N [facility] Comment on above: Performed By: #### I MFXPRT #### [facility] [address] [place] [address] Dr. Georgina Urbina Epithelial cells LM Ql (Urine sed) RARE Normal N ONE SEEN /RARE [facility] Comment on above: Performed By: #### I MFXPRT #### [facility] [address] [place] [address] Dr. Georgina Urbina MUCOUS TRACE Abnormal NONE SEEN [facility] Comment on above: Performed By: #### I MFXPRT #### [facility] [address] [place] [address] Dr. Georgina Urbina RBC 20-50 Abnormal 0-2 [facility] Comment on above: Performed By: #### I MFXPRT #### [facility] [address] [place] [address] Dr. Georgina Urbina WBC 0-2 Abnormal NONE SEEN [facility] Comment on above: Performed By: #### I MFXPRT #### [facility] [address] [place] [address] Dr. Georgina Urbina CBC AUTO DIFFon 07-23-2021 BASO # 0.1 103/ul Normal 0.0-0.1 [facility] Comment on above: Performed By: #### C BC #### [facility] [address] [place] [address] Dr. Georgina Urbina Basophils/100 WBC (Bld) 1.4 % Normal 0.2-2.0 [facility] Comment on above: Performed By: #### C BC #### [facility] [address] [place] [address] Dr. Georgina Urbina EO # 0.3 103/ul Normal 0.0-0.7 [facility] Comment on above: Performed By: #### C BC #### [facility] [address] [place] [address] Dr. Georgina Urbina Eosinophils/100 WBC (Bld) 4.9 % Normal 0.9-7.0 [facility] Comment on above: Performed By: #### C BC #### [facility] [address] [place] [address] Dr. Georgina Urbina Erythrocyte distribution wid th (RBC) [Ratio] 13.7 % Normal 11.0-15.0 The [facility] Comment on above: Performed By: #### C BC #### [facility] [address] [place] [address] Dr. Georgina Urbina Hematocrit (Bld) [Volume fraction] 53.4 % Normal 4 2.0-54.0 [facility] Comment on above: Performed By: #### C BC #### [facility] [address] [place] [address] Dr. Georgina Urbina Hemoglobin (Bld) [Mass/Vol] 16.8 g/dL Normal 14.0-18. 0 [facility] Comment on above: Performed By: #### C BC #### [facility] [address] [place] [address] Dr. Georgina Urbina IG # 0.05 10e3/ul Critically high 0.00-0.03 [facility] Comment on above: Performed By: #### C BC #### [facility] [address] [place] [address] Dr. Georgina Urbina IG % 0.9 % Critically high 0.0-0.5 The [facility] Comment on above: Performed By: #### C BC #### [facility] [address] [place] [address] Dr. Georgina Urbina LYMPH # 1.1 103/ul Critically low 1.2-3.8 The [facility] Comment on above: Performed By: #### C BC #### [facility] [address] [place] [address] Dr. Georgina Urbina Lymphocytes/100 WBC (Bld) 19.0 % Critically low 20.5-6 0.0 [facility] Comment on above: Performed By: #### C BC #### [facility] [address] [place] [address] Dr. Georgina Urbina MANUAL DIFF REQ NO Normal [facility] Comment on above: Performed By: #### C BC #### [facility] [address] [place] [address] Dr. Georgina Urbina MCH (RBC) [Entitic mass] 26.8 pg Normal 25.9-34.0 [facility] Comment on above: Performed By: #### C BC #### [facility] [address] [place] [address] Dr. Georgina Urbina MCHC (RBC) [Mass/Vol] 31.5 g/dL Normal 29.9-35.2 [facility] Comment on above: Performed By: #### C BC #### [facility] [address] [place] [address] Dr. Georgina Urbina MCV (RBC) [Entitic vol] 85.2 fL Normal 80.0-94.0 [facility] Comment on above: Performed By: #### C BC #### [facility] [address] [place] [address] Dr. Georgina Urbina MONO # 0.5 103/ul Normal 0.3-0.8 [facility] Comment on above: Performed By: #### C BC #### [facility] [address] [place] [address] Dr. Georgina Urbina Monocytes/100 WBC (Bld) 8.3 % Normal 1.7-12.0 [facility] Comment on above: Performed By: #### C BC #### [facility] [address] [place] [address] Dr. Georgina Urbina NEUT # 3.6 103/ul Normal 1.4-6.5 [facility] Comment on above: Performed By: #### C BC #### [facility] [address] [place] [address] Dr. Georgina Urbina Neutrophils/100 WBC (Bld) 65.5 % Normal 43.0-75.0 [facility] Comment on above: Performed By: #### C BC #### [facility] [address] [place] [address] Dr. Georgina Urbina Platelet mean volume (Bld) [ Entitic vol] 10.1 fL Normal 9.5-13.5 The [facility] Comment on above: Performed By: #### C BC #### [facility] [address] [place] [address] Dr. Georgina Urbina PLT 279 103/ul Normal 150-450 [facility] Comment on above: Performed By: #### C BC #### [facility] [address] [place] [address] Dr. Georgina Urbina RBC 6.27 106/ul Critically high 4.70-6.10 The [facility] Comment on above: Performed By: #### C BC #### [facility] [address] [place] [address] Dr. Georgina Urbina WBC 5.5 103/ul Normal 4.0-11.0 [facility] Comment on above: Performed By: #### C BC #### [facility] [address] [place] [address] Dr. Georgina Urbina LIPID PROFILEon 07-23-2021 CHOL-HDL RATIO NORM SEE BELOW Normal [facility] Comment on above: Result Comment: 3.3 - 4.4 LOW RISK 4.4 - 7.1 AVERAGE RISK 7.1 - 11.0 MODERATE RISK >11.0 HIGH RISK Performed By: #### L IPID, CMP #### [facility] [address] [place] [address] Dr. Georgina Urbina Cholesterol [Mass/Vol] 176 mg/dL Normal <=200 [facility] Comment on above: Performed By: #### L IPID, CMP #### [facility] [address] [place] [address] Dr. Georgina Urbina Cholesterol in HDL [Mass/Vol] 37 mg/dL Critically low 40 -60 [facility] Comment on above: Performed By: #### L IPID, CMP #### [facility] [address] [place] [address] Dr. Georgina Urbina Cholesterol in LDL [Mass/Vol] 109.8 mg/dL Normal [facility] Comment on above: Performed By: #### L IPID, CMP #### [facility] [address] [address] [address] Georgina Urbina Cholesterol.total/Cholestero l in HDL [Mass ratio] 4.8 {ratio} Normal [facility] Comment on above: Performed By: #### L IPID, CMP #### [facility] [address] [address] [address] Georgina Urbina HDL NORMAL > or = 60 mg/dl - LO W CARDIOVASCULAR RISK <40 mg/dl - HIGH CARDIOVASCULAR RISK Normal [facility] Comment on above: Performed By: #### L IPID, CMP #### [facility] [address] [place] [address] Dr. Georgina Urbina LDL CALC NORMAL SEE BELOW Normal [facility] Comment on above: Result Comment: <100 mg/dl OPTIMAL 100 - 129 mg/dl NEAR OR ABOVE OPTIMAL 130 - 159 mg/dl BORDERLINE HIGH 160 - 189 mg/dl HIGH >190 mg/dl VERY HIGH Performed By: #### L IPID, CMP #### [facility] [address] [place] [address] Dr. Georgina Urbina Triglyceride [Mass/Vol] 146 mg/dL Normal <=150 [facility] Comment on above: Performed By: #### L IPID, CMP #### [facility] [address] [place] [address] Dr. Georgina Urbina VLDL CALC 29.2 mg/dL Normal [facility] Comment on above: Performed By: #### L IPID, CMP #### [facility] [address] [place] [address] Dr. Georgina Urbina PROF 14(COMP METB)on 022 Albumin [Mass/Vol] 4.4 g/dL Normal 3.4-5.0 [facility] Comment on above: Performed By: #### L IPID, CMP #### [facility] [address] [place] [address] Dr. Georgina Urbina Albumin/Globulin [Mass ratio] 1.3 {ratio} Normal [facility] Comment on above: Performed By: #### L IPID, CMP #### [facility] [address] [address] [address] Georgina Urbina ALP [Catalytic activity/Vol] 95 U/L Normal 46-116 [facility] Comment on above: Performed By: #### L IPID, CMP #### [facility] [address] [address] [address] Georgina Urbina ALT [Catalytic activity/Vol] 20 U/L Normal 16-63 [facility] Comment on above: Performed By: #### L IPID, CMP #### [facility] [address] [address] [address] Georgina Urbina Anion gap [Moles/Vol] 14.0 mmol/L Normal [facility] Comment on above: Performed By: #### L IPID, CMP #### [facility] [address] [place] [address] Dr. Georgina Urbina AST [Catalytic activity/Vol] 14 U/L Critically low 15- 37 [facility] Comment on above: Performed By: #### L IPID, CMP #### [facility] [address] [address] [address] Georgina Urbina Bilirubin [Mass/Vol] 1.0 mg/dL Normal 0.2-1.0 [facility] Comment on above: Performed By: #### L IPID, CMP #### [facility] [address] [address] [address] Georgina Urbina Calcium [Mass/Vol] 9.0 mg/dL Normal 8.5-10.1 [facility] Comment on above: Performed By: #### L IPID, CMP #### [facility] [address] [address] [address] Georgina Urbina Chloride [Moles/Vol] 102 mmol/L Normal 98-107 [facility] Comment on above: Performed By: #### L IPID, CMP #### [facility] [address] [address] [address] Georgina Urbina CO2 [Moles/Vol] 27.4 mmol/L Normal 21.0-32.0 [facility] Comment on above: Performed By: #### L IPID, CMP #### [facility] [address] [address] [address] Georgina Urbina Creatinine [Mass/Vol] 1.19 mg/dL Normal 0.70-1.30 [facility] Comment on above: Performed By: #### L IPID, CMP #### [facility] [address] [address] [address] Georgina Urbina EGFR-AF JORDANIAN >60 Normal >=60 [facility] Comment on above: Performed By: #### L IPID, CMP #### [facility] [address] [address] [address] Georgina Urbina EGFR-NON AF JORDANIAN >60 Normal >=60 [facility] Comment on above: Performed By: #### L IPID, CMP #### [facility] [address] [address] [address] Georgina Urbina Globulin (S) [Mass/Vol] 3.3 g/dL Normal [facility] Comment on above: Performed By: #### L IPID, CMP #### [facility] [address] [address] [address] Georgina Urbina Glucose [Mass/Vol] 113 mg/dL Critically high 74-106 [facility] Comment on above: Performed By: #### L IPID, CMP #### [facility] [address] [address] [address] Georgina Urbina Potassium [Moles/Vol] 4.4 mmol/L Normal 3.5-5.1 [facility] Comment on above: Performed By: #### L IPID, CMP #### [facility] [address] [address] [address] Georgina Urbina Protein [Mass/Vol] 7.7 g/dL Normal 6.1-8.[address] [facility] Comment on above: Performed By: #### L IPID, CMP #### [facility] [address] [address] [address] Georgina Urbina Sodium [Moles/Vol] 139 mmol/L Normal 136-145 [facility] Comment on above: Performed By: #### L IPID, CMP #### [facility] [address] [place], [place] [address] Dr. Georgina Urbina Urea nitrogen [Mass/Vol] 11.0 mg/dL Normal 7.0-18.0 [facility] Comment on above: Performed By: #### L IPID, CMP #### [facility] [address] [place], [place] [address] Dr. Georgina Urbina Urea nitrogen/Creatinine [Mass ratio] 9.2 mg/mg Normal [facility] Comment on above: Performed By: #### L IPID, CMP #### [facility] [address] [place], [place] [address] Dr. Georgina Urbina US CAROTID ART BILon [...] by: ILYA MORROW Date: 2021-01-03 16:55 Normal [facility] Studieson 018 Amphetamines Ql (U) Negative [facility] Barbiturates Ql (U) Negative [facility] Benzod[facility]ines [facility]l (U) [facility] Bilirubin Ql (U) Negative [facility] Cannabinoids Screen Ql (U) Negative [facility] Comment on above: These are unconfirme d results and should not be used for legal purposes. Drug Cut-Off Concentration: AMPH 1000 ng/mL GOYO 200 ng/mL JARAD 200 ng/mL COCM 300 ng/mL OP 300 ng/mL PCP 25 ng/mL THC 20 ng/mL Clarity Refractometry automated Nom (U) Clear [facility] Cocaine Ql (U) Negative [facility] Color Nom (U) Yellow [facility] Glucose Automated test strip mass conc (U) Normal mg/dL [facility] Hemoglobin Automated test strip Ql (U) Negative [facility] Ketones mass conc (U) Negative [facility] Leukocyte esterase Automated test strip Ql (U) Negative [facility] Nitrite Ql (U) Negative [facility] Opiates Ql (U) Negative [facility] pH (U) 7.0 [pH] 5.0-9.0 [facility] Phencyclidine Ql (U) Negative [facility] Protein mass conc (U) Negative [facility] Specific gravity Relative Density (U) 1.022 1.001-1.030 [facility] Urobilinogen mass conc (U) Normal mg/dL [facility] Albumin mass conc 3.4 g/dL 3.2-5.5 [facility] Albumin/Globulin mass ratio 1.5 {ratio} [facility] ALP enzyme act/vol 79 U/L 32-92 [facility] ALT No additional P-5'-P enzyme act/vol 19 U/L 10-60 [facility] Amylase enzyme act/vol 57 U/L 28-100 [facility] aPTT Coag time (PPP) 28.3 s 23.0-35.0 [facility] AST enzyme act/vol 23 U/L 10-42 [facility] Basophils #/vol (Bld) 0.0 10*3/uL 0.0-0.2 [facility] Basophils/100 WBC (Bld) 1.1 % [facility] Bilirubin mass conc 0.5 mg/dL 0.3-1.2 [facility] Bilirubin.direct mass conc mg/dL 0.0-0.4 [facility] Bilirubin.indirect mass conc TNP [facility] Comment on above: Test not performed Calcium mass conc 9.0 mg/dL 8.2-10.2 [facility] Chloride molar conc 110 mmol/L 95-114 [facility] CK enzyme act/vol 119 U/L 22-269 [facility] CK.MB mass conc 1.4 ng/mL 0.6-6.3 [facility] CK.MB/Creatine kinase.total Calculated CFr 1.1 0.00-2.50 [facility] CO2 molar conc 21.9 mmol/L Low 22.0-30.0 [facility] Creatinine mass conc 1.16 mg/dL 0.64-1.27 [facility] Eosinophils #/vol (Bld) 0.1 10*3/uL 0.0-0.45 [facility] Eosinophils/100 WBC (Bld) 3.8 % [facility] Erythrocyte distribution width Ratio (RBC) 15.0 % High 12.0-14.8 [facility] Ethanol mass conc TNP [facility] Comment on above: Test not performed Ethanol mass conc mg/dL [facility] Fibrin D-dimer FEU mass conc (PPP) < 200 ng/mL 0-243 [facility] Comment on above: The reference range for [...] g blacks MDRD vol rate/area (S/P/Bld) mL/min/{1.73_m2} [facility] Comment on above: GFR estimated refere nce range: According to KDOQI guidelines, <60 ml/min/1.73m2 is sufficient to diagnose a patient with chronic kidney disease. GFR/1.73 sq M predicted among non-blacks MDRD vol rate/area (S/P/Bld) mL/min/{1.73_m2} [facility] Globulin mass conc (S) 2.3 g/dL [facility] Glucose mass conc 106 mg/dL High 70-100 [facility] Comment on above: ADA recommended refe rence range Random Glucose Reference Range is dependent on time and content of last meal. Glucose of more than 200 mg/dL in a nonstressed, ambulatory subject supports the diagnosis of Diabetes Mellitus. Hematocrit Volume Fraction (Bld) 40.6 % 38.8-50.0 [facility] Hemoglobin mass conc (Bld) 13.3 g/dL 13.0-17.0 [facility] INR Coag RelTime (PPP) 1.0 {INR} [facility] Comment on above: INR Therapeutic Rang e [...] 4.5 Lipase enzyme act/vol 29.0 U/L 22-51 [facility] Lymphocytes #/vol (Bld) 1.1 10*3/uL 1.00-4.8 [facility] Lymphocytes/100 WBC (Bld) 29.1 % [facility] Magnesium molar conc (Unsp spec) 1.8 mg/dL 1.6-2.6 [facility] MCH Entitic mass (RBC) 26.8 pg Low 27.5-35.2 [facility] MCHC mass conc (RBC) 32.7 g/dL 32.5-35.6 [facility] MCV Entitic volume (RBC) 81.8 fL Low 83.5-101 [facility] Monocytes #/vol (Bld) 0.3 10*3/uL 0.0-0.8 [facility] Monocytes/100 WBC (Bld) 8.6 % [facility] Neutrophils #/vol (Bld) 2.2 10*3/uL 1.8-7.7 [facility] Neutrophils/100 WBC (Bld) 57.4 % [facility] Creatinine Clearance (Chem N/A [facility] Platelet mean volume Entitic volume (Bld) 7.1 fL 6.6-10.1 [facility] Platelets #/vol (Bld) 232 10*3/uL 150-450 [facility] Potassium molar conc 4.1 mmol/L 3.5-5.1 [facility] Protein mass conc 5.7 g/dL Low 6.1-7.9 [facility] Prothrombin time (PT) Coag time (PPP) 10.6 s 9.0-12.9 [facility] RBC #/vol (Bld) 4.96 10*6/uL 3.90-5.60 [facility] Sodium molar conc 140 mmol/L 136-146 [facility] Troponin I.cardiac mass conc ng/mL 0-0.02 [facility] Comment on above: ENRIQUE ME Cut off value > or equal to 0.03 ng/mL in conjunction with clinical conditions of myocardial infarction. (www.escardio.org/guidelines) Urea nitrogen mass conc 9 mg/dL 9-23 [facility] WBC #/vol (Bld) 3.8 10*3/uL Low 4.5-11.0 [facility] Troponin I.cardiac mass conc 0.00 ng/mL 0.00-0.03 [facility] Comment on above: ER/ESD physician is notified/shown all ISTAT results. Critical values may be confirmed by laboratory testing if deemed necessary by ER attending doctor. Vital Signs Date Time Vital Sign Value Performing Clinician Facility 07-23-2022 15:01-0400 Body height 173.99 cm Shaikh Lanie Work Phone: [facility] Rosalind Dagne [place] Work Phone: 07-23-2022 15:01-0400 Body mass index (BMI) [Ratio] 32.57 kg/m2 [facility] FajenFlynn Work Phone: [facility] Rosalind Dagne [place] Work Phone: 07-23-2022 15:01-0400 Body surface area Derived from formula 2.13 m2 [facility]en[facility] Work Phone: [facility] Rosalind Dagne [place] Work Phone: 07-23-2022 15:01-0400 Body temperature 96.4 [degF] Shaikh MikyFlynn Work Phone: [facility] Rosalind DO Work Phone: 07-23-2022 15:01-0400 Body weight 98.6 kg [facility] Work Phone: [facility] SJW DO Work Phone: 07-23-2022 15:01-0400 Diastolic blood pressure 109 mm[Hg] Shaikh Lanie Work Phone: [facility] [facility] DO Work Phone: 07-23-2022 15:01-0400 Heart rate 75 /min Shaikh Lanie Work Phone: [facility] SJW DO Work Phone: 07-23-2022 15:01-0400 SaO2% (BldA) [Mass fraction] 97 % Shaikh Lanie Work Phone: [facility] DO Work Phone: 07-23-2022 15:01-0400 Systolic blood pressure 154 mm[Hg] Shaikh Lanie Work Phone: [facility] DO Work Phone: 09-17-2017 22:09-0400 BP Diastolic 118 mm[Hg] [facility] 09-17-2017 22:09-0400 BP Systolic 186 mm[Hg] [facility] 09-17-2017 22:09-0400 Pulse (Heart Rate) 72 /min [facility] 09-17-2017 22:09-0400 Pulse Oximetry 98 % [facility] 09-17-2017 22:09-0400 Respiratory Rate 16 /min [facility] Weight [facility] NEGATED: Highlighted row BMI (Body Mass Index) [facility] NEGATED: Highlighted row Body Temperature [facility] NEGATED: Highlighted row Height [facility] Encounters Encounter Date Encounter Type Care Provider Facility Start: 07-23-2022 Office outpatient ne w 30 minutes Shaikh Lanie Work Phone: [facility] DO Work Phone: Start: 12-18-2021 End: [...] End: 07-08-2018 Patient encounter procedure DEFAULT PHYSICIAN Facility:[facility] Start: 06-28-2018 End: 06-29-2018 Patient encounter procedure DEFAULT PHYSICIAN Facility:[facility] Start: 10-21-2017 End: 10-22-2017 Patient encounter procedure DEFAULT PHYSICIAN Facility:[facility] Start: 10-19-2017 End: 10-20-2017 Patient encounter procedure DEFAULT PHYSICIAN Facility:[facility] Start: 09-17-2017 End: 09-17-2017 Emergency department patient visit [facility] Start: 09-18-2011 End: 09-28-2011 Evaluation and management of inpatient [facility] Procedures Date Procedure Procedure Detail Performing Clinician Aortic aneurysm repair Shaik nati Dela rCuz Work Phone: Insertion of carotid artery stent Shaikh Lanie Work Phone: Leg repair Shaikh Lanie Work Phone: Surgical repair of upper extremity Shaikh Lanie Work Phone: Plan of Treatment Date Care Activity Detail Author Patient Education Diverticulitis (ED) Noncardiac Chest Pain (ED) [facility] Immunizations Immunization Date Immunization Notes Care Provider Mert sotelo 11-09-2021 diphtheria, tetanus toxoids and pertussis vaccine Shaikh Lanie Work Phone: [facility] DO Work Phone: 01-07-2018 influenza, injectabl e, quadrivalent, preservative free Shaikh Lanie Work Phone: [facility] DO Work Phone: 11-29-2014 influenza, injectabl e, quadrivalent, preservative free Shaikh Mikydeng Work Phone: [facility] DO Work Phone: 06-22-2014 hepatitis B vaccine, pediatric or pediatric/adolescent dosage Shaikh Maritzalauren Work Phone: [facility] DO Work Phone: 06-12-2013 tetanus toxoid, redu debora diphtheria toxoid, and acellular pertussis vaccine, adsorbed Shaikh Mikydeng Work Phone: [facility] DO Work Phone: 11-27-2011 tetanus toxoid, redu debora diphtheria toxoid, and acellular pertussis vaccine, adsorbed Shaikh Mertjensabinalauren Work Phone: [facility] DO Work Phone: Payers Date Payer Category Payer Private Health Insurance [id number] 1965 Unknown [id number] 2.16.8 [id number] 1965 Unknown [id number] 2.16.8 [id number] 1964 Unknown [id number] 2.16.8 [id number] 1964 Unknown [id number] 2.16.8 [id number] 1964 Unknown [id number] 2.16.84 [id number] 1964 Unknown [id number] 2.16.84 [id number] 1964 Unknown [id number] 2.16.84 [id number] 1964 Unknown [id number] 2.16.84 [id number] 1964 Unknown [id number] 2.16.84 [id number] 1964 Unknown [id number] 2.16.84 [id number] 1960 Medicaid [id number] Medicare [id number] Self-pay Unknown Unknown [id number] Social History Date Type Detail Facility Ex-smoker for more t hayes 1 year Ex-smoker for more than 1 year [facility] DO Work Phone: History of Present illness Narrative Note Date & Type Note Facility History of Present illness Narrative TAJ KOTHARI is a 57 year old M who presents to the [facility] for evaluation of nerve damage.At age 18, [...] also denies any weakness/numbness in his arms. [facility] DO Work Phone: Summary Purpose Family [...] and content) DATE CREATED AUTHOR 07/08/2018 [facility] DATE CREATED AUTHOR AUTHOR'S ORGANIZ ATION 12/27/2021 The [facility] FOR RECORDS PERTAINING TO PATIENTS WHO ARE [...] BE BASED ON THE PRIMARY CLINICAL RECORDS. [employer] provides no warranty or guarantee of the accuracy or completeness of information in this document.
== END 2023-03-02 13:55 | disposition home or self-care (01) ==
LOC: LAB 13:55
PROVIDERS: PCP Internal Medicine; Visit Provider Internal Medicine
DX: E78.5 Hyperlipidemia, unspecified (principal); I10 Essential (primary) hypertension; R79.89 Other specified abnormal findings of blood chemistry; M25.561 Pain in right knee; M25.562 Pain in left knee; E66.9 Obesity, unspecified; M17.0 Bilateral primary osteoarthritis of knee
CPT/HCPCS: 36415; 73564; 80053; 80061; 82570; 84156; 85025; 97802

== ENCOUNTER 2023-03-02 15:00 | Outpatient (OUT) | payer MEDICARE, MEDICAID, SELFPAY | END 2023-03-02 15:01 | disposition home or self-care (01) | LOC: MN 03-03 09:51 | PROVIDERS: PCP Internal Medicine | DX: E66.9 Obesity, unspecified (principal) | CPT/HCPCS: 97802 ==

== ENCOUNTER 2023-08-16 14:24 | Observation (INO) | payer MEDICARE, MEDICAID, SELFPAY ==
[2023-08-16] VITALS (19 sets, daily range): BP systolic 120–170; BP diastolic 78–92; PULSE 66–75; TEMP 36.6–36.8; O2SAT 89–96; BMI 32.5; BMI 34.4
--- NOTE | 2023-08-16 14:34 | CT_ITS ---
[address] [address] Patient Name: TAJ KOTHARI MRN: [id number] date: 1965 Sex: M Assigned Patient Location: ER Current Patient Location: Accession/Order Number: [id number] Exam Date: 08/16/2023 15:00 Report Date: 08/16/2023 16:30 At the request of: STEWART RIVERA Procedure: CT angio neck CT ANGIOGRAM HEAD AND NECK WITH CONTRAST, 08/16/2023. HISTORY: Diplopia. COMPARISON: CT head without contrast, 08/16/2023. TECHNIQUE: Postcontrast axial CTA angiogram images were obtained through the head and neck. Reconstructed MIP images obtained in the axial, sagittal and coronal planes. Carotid stenosis measured according to NASCET criteria. Dose reduction techniques were achieved by using automated exposure control and/or adjustment of mA and/or kV according to patient size and/or use of iterative reconstruction technique. FINDINGS: CTA BRAIN: Distal internal carotid arteries are patent and without a significant stenosis. Ophthalmic arteries are patent. Anterior cerebral arteries appear normal. No cerebral arteries are normal. Intradural segments of the vertebral arteries are patent. Basilar artery is normal. Cerebellar arteries are patent. Posterior cerebral arteries are patent. No proximal intracranial arterial occlusion. No aneurysm. No vascular malformation. Venous sinuses are patent. CTA NECK: There is tortuosity of the common carotid arteries. No significant stenosis of the common carotid arteries. No stenosis at the left carotid bifurcation. No stenosis of the left internal carotid artery. No stenosis of the right common carotid artery. No stenosis at the right carotid bifurcation. There is some calcification in the proximal right ICA without significant stenosis. No stenosis in the distal cervical segment of the right ICA. There is some calcified plaque along the distal cervical segments of both internal carotid arteries without stenosis. 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 Left vertebral artery origin is normal. There is a left carotid to left subclavian artery graft that is widely patent. Left vertebral artery is patent and without a significant stenosis. The right vertebral artery is hypoplastic. Origins of the right vertebral artery is occluded. There is reconstitution of flow in the right vertebral artery along the V2 segment. The V3 segment on the right is patent. Intradural segment of the right vertebral artery is patent. No neck mass. No lymphadenopathy in the neck. CT/CT angio neck IMPRESSION: 1. No acute proximal intracranial arterial occlusion identified. No high-grade intracranial arterial stenosis. No intracranial aneurysm. 2. No significant carotid artery stenosis in the neck. There is a large amount of atherosclerotic plaque along the distal cervical segments of the internal carotid arteries without significant internal carotid artery stenosis. 3. 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 The origin of the left vertebral artery is normal. Left vertebral artery is normal in caliber. 4. Hypoplastic right vertebral artery. There is chronic occlusion of the right vertebral artery at the origin with reconstitution of flow in the V2 segment. The V3 segment and intradural segment of the right vertebral artery are patent. Electronically authenticated by: EVI GORDON Date: 08/16/2023 16:30
--- NOTE | 2023-08-16 14:34 | ECG_ITS ---
The [facility] Test Date: 2023-08-16 Pat Name: TAJ KOTHARI Department: Room: - Gender: Male [employer]: : 1965 Requested By: SHAIKH KAYLEN Order Number: [id number] Reading MD: NATALIE SWEET Measurements Intervals [place] Rate: 69 P: 39 ND: 186 QRS: 64 QRSD: 120 T: 39 QT: 400 QTc: 420 Interpretive Statements 1100 Sinus rhythm 2420 RSR (QR) in lead V1/V2, consistent with right ventricular conduction delay 3614 Cannot rule out inferior myocardial infarction, age undetermined 9150 abnormal ECG Compared to ECG 09/24/2018 19:12:51 Myocardial infarct finding now present Right-axis deviation no longer present Electronically Signed On 08-17-2023 5:29:41 EDT by NATALIE SWEET
--- NOTE | 2023-08-16 14:34 | CT_ITS ---
[address] [address] Patient Name: TAJ KOTHARI MRN: [id number] date: 1965 Sex: M Assigned Patient Location: ER Current Patient Location: Accession/Order Number: [id number] Exam Date: 08/16/2023 15:00 Report Date: 08/16/2023 16:30 At the request of: STEWART RIVERA Procedure: CT angio head CT ANGIOGRAM HEAD AND NECK WITH CONTRAST, 08/16/2023. HISTORY: Diplopia. COMPARISON: CT head without contrast, 08/16/2023. TECHNIQUE: Postcontrast axial CTA angiogram images were obtained through the head and neck. Reconstructed MIP images obtained in the axial, sagittal and coronal planes. Carotid stenosis measured according to NASCET criteria. Dose reduction techniques were achieved by using automated exposure control and/or adjustment of mA and/or kV according to patient size and/or use of iterative reconstruction technique. FINDINGS: CTA BRAIN: Distal internal carotid arteries are patent and without a significant stenosis. Ophthalmic arteries are patent. Anterior cerebral arteries appear normal. No cerebral arteries are normal. Intradural segments of the vertebral arteries are patent. Basilar artery is normal. Cerebellar arteries are patent. Posterior cerebral arteries are patent. No proximal intracranial arterial occlusion. No aneurysm. No vascular malformation. Venous sinuses are patent. CTA NECK: There is tortuosity of the common carotid arteries. No significant stenosis of the common carotid arteries. No stenosis at the left carotid bifurcation. No stenosis of the left internal carotid artery. No stenosis of the right common carotid artery. No stenosis at the right carotid bifurcation. There is some calcification in the proximal right ICA without significant stenosis. No stenosis in the distal cervical segment of the right ICA. There is some calcified plaque along the distal cervical segments of both internal carotid arteries without stenosis. 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 Left vertebral artery origin is normal. There is a left carotid to left subclavian artery graft that is widely patent. Left vertebral artery is patent and without a significant stenosis. The right vertebral artery is hypoplastic. Origins of the right vertebral artery is occluded. There is reconstitution of flow in the right vertebral artery along the V2 segment. The V3 segment on the right is patent. Intradural segment of the right vertebral artery is patent. No neck mass. No lymphadenopathy in the neck. CT/CT angio head IMPRESSION: 1. No acute proximal intracranial arterial occlusion identified. No high-grade intracranial arterial stenosis. No intracranial aneurysm. 2. No significant carotid artery stenosis in the neck. There is a large amount of atherosclerotic plaque along the distal cervical segments of the internal carotid arteries without significant internal carotid artery stenosis. 3. 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 The origin of the left vertebral artery is normal. Left vertebral artery is normal in caliber. 4. Hypoplastic right vertebral artery. There is chronic occlusion of the right vertebral artery at the origin with reconstitution of flow in the V2 segment. The V3 segment and intradural segment of the right vertebral artery are patent. Electronically authenticated by: EVI GORDON Date: 08/16/2023 16:30
--- NOTE | 2023-08-16 14:34 | CT_ITS ---
The [address] [address] Patient Name: TAJ KOTHARI MRN: [id number] date: 1965 Sex: M Assigned Patient Location: ED.MAIN Current Patient Location: ED.MAIN Accession/Order Number: [id number] Exam Date: 08/16/2023 15:03 Report Date: 08/16/2023 15:34 At the request of: STEWART RIVERA Procedure: CT stroke head/brain wo con CT HEAD WITHOUT CONTRAST, 08/21/2023 HISTORY: Diplopia. COMPARISON: CT head without contrast, 02/27/2018. TECHNIQUE: Noncontrast axial CT images obtained through the head. Reconstructions were obtained in the sagittal and coronal planes. Dose reduction techniques were achieved by using automated exposure control and/or adjustment of mA and/or kV according to patient size and/or use of iterative reconstruction technique.. FINDINGS: Paranasal sinuses are clear. Mastoid air cells and middle ear cavities are clear. Skull base is intact. No skull lesion. There are multiple small areas of chronic infarction throughout both frontal lobes, right greater than left. There is chronic infarction in the right cerebral hemisphere which is stable. No hydrocephalus. No extra-axial fluid collection. No mass effect. No shift of midline. No acute hemorrhage. No mass. CT/CT stroke head/brain wo con IMPRESSION: 1. Stable CT of the head. No new acute findings. No hemorrhage. No mass. 2. There are multiple small chronic infarcts in both cerebral hemispheres most prominent in the right frontal lobe. There is chronic infarction in the right cerebellar hemisphere. These findings are stable. Electronically authenticated by: EVI GORDON Date: 08/16/2023 15:34
--- NOTE | 2023-08-16 14:38 | ED.GENADUL1 ---
HPI HPI - General Adult General Chief complaint: Eye Problems Stated complaint: BLURRY VISION Time Seen by Provider: 08/16/23 14:34 Source: patient and family Mode of arrival: ambulance History of Present Illness HPI narrative: Patient is a 58-year-old male who presents to the emergency department by ambulance for evaluation of blurry/double vision that he states began at 430 this morning. He reports a remote history of CVA, most recently in 2019. He takes an aspirin daily, no anticoagulation. He denies headache, dizziness, chest pain, shortness of breath, any other peripheral symptoms. He has had no recent illness. He states if he closes each eye his vision is normal but when both eyes are open he has blurred/double vision. He is noted to be using his cell phone easily in the bed to look up previous medical results without squinting or closing in eye. Related Data Home Medications ?Medication ?Instructions ?Recorded ?Confirmed propranolol 120 mg capsule,24 120 mg PO DAILY 08/16/23 08/16/23 hr,extended release rosuvastatin 20 mg tablet 20 mg PO DAILY 08/16/23 08/16/23 sumatriptan succinate 100 mg tablet 100 mg PO PRN migraine headache 08/16/23 Allergies Allergy/AdvReac Type Severity Reaction Status Date / Time Penicillins Allergy Intermediate Hives Verified 08/16/23 14:36 Sulfa (Sulfonamide Allergy Mild Hives Verified 08/16/23 14:36 Antibiotics) Opioid HPI Opioid Management Most Recent Opioid Data: No Data to Display Review of Systems ROS Constitutional Denies: fever or chills Eyes Reports: change in vision and blurry vision Ears, nose, mouth, and throat Denies: throat pain or nasal congestion Cardiovascular Denies: chest pain Respiratory Denies: shortness of breath or cough Gastrointestinal Denies: nausea or vomiting Musculoskeletal Denies: neck pain Integumentary/Breast Denies: rash Neurological Denies: headache, numbness in extremities, weakness in extremities or dizziness Hematologic/Lymphatic Denies: easy bruising or easy bleeding [facility] Medical History (Updated 08/16/23 @ 17:03 by PARAMJIT Gonsalez) CVA (cerebral vascular accident) ?I63.9 - Cerebral infarction, unspecified (ICD-10) Exam Narrative Exam Narrative: Gen.: Awake, alert, in no distress Head: Normocephalic, atraumatic ENT: Moist mucous membranes Respiratory: No respiratory distress, lungs clear bilaterally Cardio: Regular rate and rhythm Extremities: Moves extremities equally, no injuries noted Psych: Normal mood and affect Neuro: No focal neuro deficit, Skin: Warm, dry, intact Constitutional Vital Signs, click to edit/add: Last Vital Signs Temp 98.3 F 08/16/23 14:30 Pulse 75 08/16/23 16:52 Resp 24 H 08/16/23 16:52 BP 153/92 H 08/16/23 16:06 Pulse Ox 94 L 08/16/23 14:51 O2 Del Method Room Air 08/16/23 14:30 Course Vital Signs Vital signs: Vital Signs Temperature 98.3 F 08/16/23 14:30 Pulse Rate 75 08/16/23 14:30 Respiratory Rate 16 08/16/23 14:30 Blood Pressure 170/92 H 08/16/23 14:30 Pulse Oximetry 95 08/16/23 14:30 Oxygen Delivery Method Room Air 08/16/23 14:30 Temperature 98.3 F 08/16/23 14:30 Pulse Rate 75 08/16/23 16:52 Respiratory Rate 24 H 08/16/23 16:52 Blood Pressure 153/92 H 08/16/23 16:06 Pulse Oximetry 94 L 08/16/23 14:51 Oxygen Delivery Method Room Air 08/16/23 14:30 Medical Decision Making MDM Narrative Medical decision making narrative: Patient with no significant focal medical complaints in the ER, he believes his vision changes have improved since being in the ER. He has 20/20 vision in the left, right and both eyes with his glasses on. His vital signs are stable in the ER and lab studies are unremarkable. Patient was sent for CT of the brain with stroke protocol as well as CT angio of the head and neck showing chronic occlusion and remote infarcts. I discussed these results with Dr. Foote for [facility] stroke interventionalists. He requested that the patient be admitted for observation overnight at this facility with a noncontrast MRI and echocardiogram to guide the remainder of the workup. Patient admitted to hospitalist service. Stable at time of admission. Medical Records Medical records reviewed: Yes I reviewed the patient's medical records Lab Data Lab results reviewed: Yes I reviewed the patient's lab results Labs: Lab Results 08/16/23 Range/Units 14:50 WBC 6.8 (4.0-11.0) 10^3/uL RBC 5.42 (4.70-6.10) 10^6/uL Hgb 14.5 (14.0-18.0) g/dL Hct 46.6 (42.0-54.0) % MCV 86.0 (80.0-94.0) fL MCH 26.8 (25.9-34.0) pg MCHC 31.1 (29.9-35.2) g/dL RDW 14.1 (11.0-15.0) % Plt Count 239 (150-450) 10^3/uL MPV 9.9 (9.5-13.5) fL Neut % (Auto) 65.5 (43.0-75.0) % Lymph % (Auto) 16.9 L (20.5-60.0) % [facility] [place] [facility] % (Auto) 9.0 (1.7-12.0) % Eos % (Auto) 6.0 (0.9-7.0) % Baso % (Auto) 1.0 (0.2-2.0) % Neut # (Auto) 4.4 (1.4-6.5) 10^3/uL Lymph # (Auto) 1.2 (1.2-3.8) 10^3/uL [facility] # (Auto) 0.6 (0.3-0.8) 10^3/uL Eos # (Auto) 0.4 (0.0-0.7) 10^3/uL Baso # (Auto) 0.1 (0.0-0.1) 10^3/uL Abs Immat Gran (auto) 0.11 H (0.00-0.03) 10^3/uL Imm/Tot Granulo (auto) 1.6 H (0.0-0.5) % PT 10.2 (9.0-11.6) sec INR 0.96 Sodium 141 (136-145) mmol/L Potassium 4.0 (3.5-5.1) mmol/L Chloride 106 (98-107) mmol/L Carbon Dioxide 25.6 (21.0-32.0) mmol/L Anion Gap 13.4 BUN 22.0 H (7.0-18.0) mg/dL Creatinine 0.99 (0.70-1.30) mg/dL Est GFR ( Amer) >60 (>=60) Est GFR (Non-Af Amer) >60 (>=60) BUN/Creatinine Ratio 22.2 Glucose 115 H (74-106) mg/dL Calcium 9.2 (8.5-10.1) mg/dL Total Bilirubin 0.5 (0.2-1.0) mg/dL AST 10 L (15-37) U/L ALT 17 (16-63) U/L Alkaline Phosphatase 101 (46-116) U/L Troponin I High Sens 9.0 (4.0-76.1) pg/mL Total Protein 7.0 (6.4-8.2) g/dL Albumin 3.5 (3.4-5.0) g/dL Globulin 3.5 g/dL Albumin/Globulin Ratio 1.[address] scan - head: Attestation: I have reviewed the pertinent imaging results. Radiologist's impression: ITS Impressions Brain CT 08/16/23 14:34 IMPRESSION: 1. Stable CT of the head. No new acute findings. No hemorrhage. No mass. 2. There are multiple small chronic infarcts in both cerebral hemispheres most prominent in the right frontal lobe. There is chronic infarction in the right cerebellar hemisphere. These findings are stable. Electronically authenticated by: EVI GORDON Date: 08/16/2023 15:34 Head CTA 08/16/23 14:34 IMPRESSION: 1. No acute proximal intracranial arterial occlusion identified. No high-grade intracranial arterial stenosis. No intracranial aneurysm. 2. No significant carotid artery stenosis in the neck. There is a large amount of atherosclerotic plaque along the distal cervical segments of the internal carotid arteries without significant internal carotid artery stenosis. 3. 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 The origin of the left vertebral artery is normal. Left vertebral artery is normal in caliber. 4. Hypoplastic right vertebral artery. There is chronic occlusion of the right vertebral artery at the origin with reconstitution of flow in the V2 segment. The V3 segment and intradural segment of the right vertebral artery are patent. Electronically authenticated by: EVI GORDON Date: 08/16/2023 16:30 Neck CTA 08/16/23 14:34 IMPRESSION: 1. No acute proximal intracranial arterial occlusion identified. No high-grade intracranial arterial stenosis. No intracranial aneurysm. 2. No significant carotid artery stenosis in the neck. There is a large amount of atherosclerotic plaque along the distal cervical segments of the internal carotid arteries without significant internal carotid artery stenosis. 3. 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 The origin of the left vertebral artery is normal. Left vertebral artery is normal in caliber. 4. Hypoplastic right vertebral artery. There is chronic occlusion of the right vertebral artery at the origin with reconstitution of flow in the V2 segment. The V3 segment and intradural segment of the right vertebral artery are patent. Electronically authenticated by: EVI GORDON Date: 08/16/2023 16:30 ECG Data Attestation: I personally reviewed and interpreted this ECG as follows: (Normal sinus rhythm at a rate of 69, no acute ST elevation or ectopy. EKG reviewed by attending physician) Discharge Plan Discharge Chief Complaint: Eye Problems Clinical Impression: Diplopia, Transient ischemic attack (TIA) Time of Disposition Decision: 17:03
--- NOTE | 2023-08-16 14:45 | PC.NURSE ---
pt concerned vision changes from recent immunizations: Tetanus and Hep A. Pt also scrolling on cell phone to find a recent CT report done at [facility]
[2023-08-16 15:43] LABS: Basophils Absolute Auto 0.1 10^3/uL (0.0-0.1); Eosinophils Absolute Auto 0.4 10^3/uL (0.0-0.7); Hematocrit 46.6 % (42.0-54.0); Hemoglobin 14.5 g/dL (14.0-18.0); Immature Granulocytes Abs Auto 0.11 10^3/uL (0.00-0.03); Immature Granulocytes Pct Auto 1.6 % (0.0-0.5); Lymphocytes Absolute Auto 1.2 10^3/uL (1.2-3.8); Lymphocytes Percent Auto 16.9 % (20.5-60.0); Mean Corpuscular HGB Conc 31.1 g/dL (29.9-35.2); Mean Corpuscular Hemoglobin 26.8 pg (25.9-34.0); Mean Platelet Volume 9.9 fL (9.5-13.5); Monocytes Absolute Auto 0.6 10^3/uL (0.3-0.8); Neutrophils Absolute Auto 4.4 10^3/uL (1.4-6.5); Neutrophils Percent Auto 65.5 % (43.0-75.0); Platelet Count 239 10^3/uL (150-450); Red Blood Count 5.42 10^6/uL (4.70-6.10); Red Cell Distribution Width 14.1 % (11.0-15.0); White Blood Count 6.8 10^3/uL (4.0-11.0)
[2023-08-16 15:56] LABS: INR 0.96; Prothrombin Time 10.2 sec (9.0-11.6)
--- OUTSIDE RECORDS SUMMARY | 2023-08-16 16:01 | XMS_ITS | CCD ---
Author Organization [facility] Care Team Providers Care Network Cabler Name Role Phone PHYSICIAN, DEFAULT Admitting Unavailable [...] MASSEY Consulting Unavailable ANTWAN GUERRERO Consulting Unavailable EDGAR MASSEY Admitting Unavailable FAWWAD, CABRERA H Primary Care Unavailable EDGAR MASSEY Attending Unavailable EDGAR MASSEY Consulting Unavailable FAWWAD, CABRERA H Consulting Unavailable FAWWAD, CABRERA H Primary Care Unavailable SHAIKH DELA CRUZ H Admitting Unavailable SHAIKH DELA CRUZ H Attending Unavailable Shaikh Dela Cruz Unavailable KamliakelleshyanneLuis thompson Unavailable SHAIKH DELA CRUZ Attending Unavailable SHAIKH DELA CRUZ Attending Unavailable RICARDA BROWN Attending Unavailable RICARDA BROWN Referring Unavailable Allergies Allergy Classification Reported Allergen(s) Allergy Type Date of Onset Reaction(s) Facility (3 sources) Amoxicillin; Translations: [Amoxicillin] Drug Allergy 12-28-19 14 Unknown Reaction, Unknown [facility] Repository (2 sources) Ampicillin; Translations: [Ampicillin] Drug Allergy 12-28-19 14 Unknown Reaction [facility] Repository (2 sources) Sulfonamides (Antibiotic); Translations: [SULFA (SULFONAMIDE ANTIBIOTICS)] Allergy to Substance 06-26-19 09 Unknown Reaction [facility] Repository (1 source) Chocolate Drug allergy (disorder) 03-29-18 65 [facility] Repository (1 source) Clofazimine Drug Allergy [facility]ository (1 source) Hops extract Drug Allergy [facility]ository (2 sources) Penicillins; Translations: [PENICILLINS] Drug allergy (disorder) 06-26-19 09 [facility]ository (1 source) Sulfonamides (Antibiotic) Drug allergy (disorder) 12-28-19 14 [facility]ository (1 source) Misc-Food; Translations: [Misc-Food] Food allergy (disorder) 03-29-18 80 [facility]ository (1 source) Penicillins Propensity to adverse reactions Hives [employer] Other (1 source) Sulfonamides (Antibiotic) Propensity to adverse reactions Unknown [employer] Other (1 source) Amoxapine; Translations: [AMOXAPINE] Drug Allergy 06-29-19 24 [facility] Repository Medications Current Medications Medication Drug Class(es) Dates Sig (Normalized) Sig (Original) aspirin 81 mg chewable tablet (1 source) Platelet Aggregation Inhibitor, Nonsteroidal Anti-inflammatory Drug take 1 tablet by mouth every twenty-four hours Aspirin 81 MG 1 tablet Orally Once a day Active fluticasone propionate 0.05 mg/actuat metered dose nasal spray (1 source) Corticosteroid Fluticasone Propionate 50 MCG/ACT Nasal for 30 Active Magnesium (1 source) Magnesium 400 MG as directed Orally Active Melatonin (1 source) Melatonin *pleas e review for potential _update for e-prescription and drug interaction check* Active Tylenol Extra Strength 500 MG (1 source) take 2 tablets by mouth every six hours as needed Tylenol Extra Strength 500 MG take 2 tablet (1000MG) by oral route every 6 hours as needed Oral *please review for potential _update for e-prescription and drug interaction check* Active Completed/Discontinued Medications Medication Drug Class(es) Dates Sig [...] chloride 10 meq extended release oral tablet (2 sources) Start: 08-07-2021 Potassium Chloride ER 10 MEQ Oral Tablet Extended Release Quantity: 90 Refills: 0 Ordered: 16-Jun-2022 DO Start : 07-Aug-2021 Active take 1 capsule by mo ut every twelve hours Potassium Chloride 10 MEQ 1 capsule with food Orally Twice a day Active promethazine hydrochloride 25 mg oral tablet (2 sources) Phenothiazine Start: 09-17-2017 take 25 mg by mouth every six hours as needed for nausea Promethazine 25 MG Oral Q6H PRN For Nausea September 17, 2017 Active 24 hr propranolol hydrochloride 120 mg extended release oral capsule (2 sources) beta-Adrenergic Neymar Start: 07-20-2022 take 1 capsule by mouth every twenty-four hours Propranolol HCl ER 120 MG Oral Capsule Extended Release 24 Hour Quantity: 30 Refills: 0 Ordered: 20-Jul-2022 DO Start : 20-Jul-2022 Active take 1 capsule by mo [facility] every twenty-four hours Inderal LA 120 MG 1 capsule Orally Once a day Active rosuvastatin calcium 20 mg oral tablet (3 sources) HMG-CoA Reductase Inhibitor Start: 07-20-2022 Rosuvastatin Calcium 20 MG Oral Tablet Quantity: 90 Refills: 0 Ordered: 20-Jul-2022 DO Start : 20-Jul-2022 Active Start: 08-07-2021 Rosuvastatin C alcium 10 MG Oral Tablet Quantity: 90 Refills: 0 Ordered: 16-Jun-2022 DO Start : 07-Aug-2021 Active take 1 tablet by [facility] every twenty-four hours Rosuvastatin Calcium 20 MG 1 tablet Orally Once a day Active tiZANidine 4 mg oral tablet (1 [...] Documented Da te Episodic/Chronic Acute cerebrovascular disease (2 sources) Ischemic stroke; Translations: [Cerebral artery occlusion, unspecified with cerebral infarction] Chronic Anxiety disorders (1 source) Anxiety disorder, unspecified; Translations: [ANXIETY DISORDER UNSPECIFIED] Onset: 11-11-2021 Chronic Aortic; peripheral; and visceral artery aneurysms (3 sources) Aneurysm; Translations: [Aneurysm of unspecified site] Onset: 06-29-2023 Chronic Blindness and vision defects (1 source) Diplopia; Translations: [Diplopia] Episodic Chronic kidney disease (1 source) Chronic kidney disease stage 3; Translations: [Chronic kidney disease, stage 3 (moderate)] Chronic Coma; stupor; and brain damage (1 source) Loss of consciousness; Translations: [Unspecified coma] Episodic Conditions associated with dizziness or vertigo (1 source) Dizziness; Translations: [Dizziness and giddiness] Episodic Crushing injury or internal injury (1 source) Other specified injury of thoracic aorta, sequela Episodic Diseases of white blood cells (4 sources) [...] Translations: [ESSENTIAL PRIMARY HYPERTENSION] Onset: 11-11-2021 Chronic Headache; including migraine (1 source) Refractory migraine without aura; Translations: [Migraine without aura, intractable, without status migrainosus] Chronic Hypertension with complications and secondary hypertension (1 source) Hypertensive renal disease; Translations: [Hypertensive chronic kidney disease with stage 1 through stage 4 chronic kidney disease, or unspecified chronic kidney disease] Chronic Immunizations and screening for infectious disease (1 source) Encounter for immunization; Translations: [ENCOUNTER FOR IMMUNIZATION] Onset: 11-11-2021 Episodic Mood disorders (1 source) Major depressive disorder, single episode, unspecified; Translations: [AUNG DEPRESS D/O SINGLE EPIS UNS] Onset: 11-11-2021 Chronic Occlusion or stenosis of precerebral arteries (5 sources) Occlusion and stenosis of bilateral carotid arteries; Translations: [Bilateral carotid artery stenosis] Onset: 01-03-2021 Chronic Open wounds of extremities (4 sources) Laceration without foreign body, left foot, initial encounter; Translations: [LACERATION W/O FB LT FOOT INITIAL] Onset: 11-09-2021 Episodic Osteoarthritis (1 source) Unspecified osteoarthritis, unspecified site; Translations: [UNSPECIFIED OSTEOARTHRITIS UNS SITE] Onset: 11-11-2021 Chronic Other aftercare (1 source) 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; Translations: [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 ASPIRIN] Onset: 11-11-2021 Episodic Other aftercare (1 source) Other fci (current) drug therapy; Translations: [OTH LONGTERM CURRENT DRUG THERAPY] Onset: 11-11-2021 Episodic Other connective tissue disease (1 source) Fibromyalgia; Translations: [FIBROMYALGIA] Onset: 11-11-2021 Episodic Other connective tissue disease (1 source) Spasm of cervical paraspinous muscle; Translations: [Other muscle spasm] Episodic Other ear and sense organ disorders (1 source) Bilateral tinnitus; Translations: [Tinnitus, bilateral] Episodic Other lower respiratory disease (1 source) Personal history of pneumonia (recurrent); Translations: [PERSONAL HX OF PNEUMONIA RECURRENT] Onset: 11-11-2021 Episodic Other nervous system disorders (1 source) Polyneuropathy, unspecified; Translations: [POLYNEUROPATHY UNSPECIFIED] Onset: 11-11-2021 Chronic Other nervous system disorders (1 source) Polyneuropathy; Translations: [Polyneuropathy, unspecified] Chronic Other nervous system disorders (1 source) Disorder of brain; Translations: [White matter disease, unspecified] Episodic Other nutritional; endocrine; and metabolic disorders (1 source) H/O: raised blood lipids; Translations: [Personal history of other endocrine, metabolic, and immunity disorders] Episodic Other screening for suspected conditions (not mental disorders or infectious disease) (4 sources) Abnormal findings on diagnostic imaging of other specified body structures; Translations: [ABNORML FIND DX IMG OT BODY STRUC] Onset: 12-18-2021 Chronic Other screening for suspected conditions (not mental disorders or infectious disease) (1 source) MRI of head abnormal; Translations: [Abnormal findings on diagnostic imaging of skull and head, not elsewhere classified] Episodic Residual codes; unclassified (1 source) Obstructive sleep apnea syndrome; Translations: [Obstructive sleep apnea (adult) (pediatric)] Chronic Residual codes; unclassified (1 source) Acquired absence of other specified parts of digestive tract; Translations: [ACQ ABSENCE OTH PART DIGESTV TRACT] Onset: 11-11-2021 Episodic Residual codes; unclassified (1 source) Disturbance in sleep behavior; Translations: [Sleep disorder, unspecified] Episodic Spondylosis; intervertebral disc disorders; other back problems (1 source) Neck pain; Translations: [Cervicalgia] Episodic Syncope (1 source) Syncope; Translations: [Syncope and collapse] Episodic Past or Other Problems Problem Classification [...] Results Test Name Value Interpretation Reference Range Facility CTA CHEST W IV CONTRASTon CTA CHEST W IV CONTRAST 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 COMPARISON: None Technique: Nonionic contrast injected intravenously without reported complication. Thin section axial images of the thorax obtained with multiplanar reformatted 3-D MIP images of the thorax generated under concurrent physician supervision and reviewed. Automatic exposure control (AEC) was utilized. FINDINGS: VASCULAR: Aorta: Ascending aorta measures 2.9 cm. Mid descending aorta measures approximately 2.5 cm. No significant. Mild soft plaque of the descending thoracic aorta. No abnormal mural thickening. No visualized dissection. Aortic arch vessels: Widely patent brachiocephalic trunk. Aneurysmal dilatation proximal right subclavian artery measures 1.7 cm. Patent proximal left common carotid artery. High-grade stenosis and subsequent occlusion of the proximal left subclavian artery, partially opacified distal to the left vertebral artery takeoff Pulmonary arteries: Normal in caliber. Poorly evaluated given contrast timing NONVASCULAR: LUNG/PLEURA: Trachea is clear. No focal consolidation or significant effusion. Thickening of the left posterior pleura, potentially related to prior trauma given overlying rib defect. A 6 mm nodule at the left lower lobe (79/118). HEART: Heart is normal in size. No significant pericardial effusion. No significant coronary calcification. MEDIASTINUM and LYMPH NODES: No enlarged axillary or mediastinal lymph nodes. Nondilated esophagus. UPPER ABDOMEN: Steatotic liver. No acute abnormality visualized within the upper abdomen. MUSCULOSKELETAL AND LOWER NECK CT angiogram neck interpreted separately. Somewhat atrophic thyroid. Chronic appearing deformity of the left sixth rib. No acute osseous abnormality. IMPRESSION: 1.Occlusion proximal left subclavian artery with opacification distally via patent carotid-subclavian bypass (landing zone distal to the left vertebral artery). CTA neck reported separately. Correlate with any physiologic steal phenomenon. 2.Postoperative changes proximal right subclavian artery. A 1.8 cm fusiform aneurysm proximal right subclavian artery. 3.A 0.6 cm left lower lobe nodule. Follow-up [address] chest recommended as below. Fleischner Society Guidelines for Single Solid Nodules Nodule Size <6 mm - LOW RISK patient: No follow-up needed; HIGH RISK Patient: Consider follow-up CT at 12 months, if unchanged, no additional follow up. 6-8 mm - LOW or HIGH RISK patient: Follow-up CT at 6-12 months, then 18-24 months if unchanged. >8 mm - LOW or HIGH RISK patient: Tissue sampling, PET/CT or CT followup in 3 months. Notes 1. Guidelines apply to patients 35 years of age or older with newly detected indeterminate lung nodules. 2. Size reported is the average of long and short axes, rounded to the nearest millimeter. 3. HIGH RISK is defined as emphysema present, a history of smoking or other known risk factors for lung cancer. 4. LOW RISK is defined as minimal or absent history of smoking or other known risk factors. Kay H, et al. Radiology. 2017. All CT scans at this facility use dose modulation, iterative reconstruction, and/or weight based dosing when appropriate to reduce radiation dose to as low as reasonably achievable. Electronically signed: RENETTA FONTENOT. Tejas Vlkaykay Invalid Interpretation Code [facility] 29on 06-29-2023 29 Addended by: LIANA PINEDA on: 06/29/2023 01:46 PM Modules accepted: Orders Normal [facility] CTA NECK W IV CONTRASTon CTA NECK W IV CONTRAST CTA NECK HISTORY: Subclavian artery aneurysm COMPARISON: CTA chest 08/03/2023; CTA neck 10/18/2015. Multilevel degenerative changes in the cervical spine. TECHNIQUE: Routine CT angiogram of the neck performed according to standard protocol. 3-D volume rendered maximum intensity projection images generated and reviewed under concurrent physician supervision. The [place] Symptomatic Carotid Endarterectomy Trial (NASCET) method for calculating the degree of stenosis was utilized for stenosis measurements. All CT scans at this facility use dose modulation, iterative reconstruction, and/or weight based dosing when appropriate to reduce radiation dose to as low as reasonably achievable. FINDINGS: Fusiform aneurysmal dilatation of the right subclavian artery measuring 1.8 cm. Significant motion artifact compromises assessment of the common carotid arteries, which appear grossly patent. Calcified plaque in the proximal right ICA without significant stenosis or occlusion. Motion artifact compromises assessment of the internal carotid arteries as well. Fusiform aneurysmal dilatation of the high right cervical ICA measuring 0.9 cm in greatest dimension, with both calcified and noncalcified eccentric intraluminal thrombus. There is also similar-appearing fusiform aneurysmal dilatation of the high left cervical ICA measuring 0.9 cm containing eccentric intraluminal noncalcified and calcified thrombus. No significant stenosis in the ICAs. Dominant left vertebral artery is widely patent. Diminutive right vertebral artery is mostly patent, however proximal aspect of right vertebral artery not well visualized. Visualized intracranial arterial structures appear patent. There is occlusion in the proximal aspect of the left subclavian artery. There is a patent bypass graft extending from the left common carotid artery to the mid left subclavian artery. IMPRESSION: *Unchanged fusiform aneurysmal dilatation of the high cervical ICAs each of which measure approximately 0.9 cm in greatest dimension and are associated with eccentric intraluminal calcified and noncalcified thrombus. *Unchanged fusiform aneurysmal dilatation of the right subclavian artery measuring 1.8 cm. *Redemonstration of occluded proximal left subclavian artery with widely patent left common carotid-subclavian bypass graft. *Unchanged occluded V1 segment of right vertebral artery with patent diminutive V2 segment. Widely patent left vertebral artery. Electronically signed: Martin Awan. Not Niyad Invalid Interpretation Code [facility] Office Visiton 06-29-2023 Follow-up visit [id number] Taj 1965 M Date Provider Department Center 06/29/2023 RICARDA CASTILLO [facility] No family history on file Level of Service:12599 [place] OFFICE/OUTPATIENT NEW LOW MDM 30 MINUTES Reason for Visit and Comments: New Patient [632] Normal [facility] Blood Pressure Cuff Sizeon 0 07-23-2022 Adult depression screening assessment No MP-Neurolog y-W [place] SJW DO Work Phone: Fall risk assessment b) One or more fall s in the last year RW-Qtgwfzttj-S [place] SJW DO Work Phone: Tobacco use status CPHS b) No NU-Txqrhmvul-G [place] SJW DO Work Phone: Blood Pressure Cuff Size Adult ZN-Mfxrmralk-N [place] SJW DO Work Phone: CT CHEST WO CONon 12-18-2021 CT CHEST WO CON EXAMINATION: CT CHEST WO CON HISTORY: Imaging result abnormal COMPARISON: [...] or convincing involvement. Electronically authenticated by: ILYA ZISADAFJAKE Date: 2021-12-18 13:53 Normal [facility] PROTEIN ELECTROPHERESIS DAVID Diaz 10-14-2021 Albumin, U 24.0 % Normal [facility] Comment on above: Performed By: #### U PTE #### [facility] [address] [address] [address] Georgina Urbina Alpha-1 Globulin U 9.8 % Normal [facility] Comment on above: Performed By: #### U PTE #### [facility] [address] [address] [address] Georgina Urbina Alpha-2 Glubulin U 21.5 % Normal [facility] Comment on above: Performed By: #### U PTE #### [facility] [address] [address] [address] Georgina Urbina Beta Globulin, U 27.8 % Normal [facility] Comment on above: Performed By: #### U PTE #### [facility] [address] [address] [address] Georgina Urbina Gamma Globulin U 16.9 % Normal [facility] Comment on above: Performed By: #### U PTE #### [facility] [address] [address] [address] Georgina Urbina M-Marlo, % Not Observed Normal Not Observed [facility] Comment on above: Performed By: #### U PTE #### [facility] [address] [address] [address] Georgina Urbina PDF . Normal [facility] Comment on above: Performed By: #### U PTE #### [facility] [address] [address] [address] Georgina Urbina Please note: Comment Normal [facility] Comment on above: Result Comment: Prot ein electrophoresis scan will follow via computer, mail, or medical equipment technician delivery. Performed By: #### U PTE #### [facility] [address] [place] [address] Dr. Georgina Urbina Protein (U) [Mass/Vol] 7.2 mg/dL Normal Not Estab. [facility] Comment on above: Performed By: #### U PTE #### [facility] [address] [place] [address] Dr. Georgina Urbina IMMUNOFIXATION ELEC, PROTEIN ELECon 10-13-2021 Albumin [Mass/Vol] 3.8 g/dL Normal 2.9-4.4 [facility] Comment on above: Performed By: #### I MFXPRT #### [facility] [address] [place] [address] Dr. Georgina Urbina Albumin/Globulin [Mass ratio] 1.4 {ratio} Normal 0.7-1.7 [facility] Comment on above: Performed By: #### I MFXPRT #### [facility] [address] [place] [address] Dr. Georgina Urbina Kzoxd-4-Npcoldff 0.3 g/dL Normal 0.0-0.4 [facility] Comment on above: Performed By: #### I MFXPRT #### [facility] [address] [place] [address] Dr. Georgina Urbina Htnnm-5-Xpkfsjin 0.6 g/dL Normal 0.4-1.0 [facility] Comment on above: Performed By: #### I MFXPRT #### [facility] [address] [place] [address] Dr. Georgina Urbina Beta Globulin 1.2 g/dL Normal 0.7-1.3 [facility] Comment on above: Performed By: #### I MFXPRT #### [facility] [address] [place] [address] Dr. Georgina Urbina Gamma Globulin 0.7 g/dL Normal 0.4-1.8 [facility] Comment on above: Performed By: #### I MFXPRT #### [facility] [address] [place] [address] Dr. Georgina Urbina Globulin (S) [Mass/Vol] 2.8 g/dL Normal 2.2-3.9 [facility] Comment on above: Performed By: #### I MFXPRT #### [facility] [address] [address] [address] Georgina Urbina Immunofixation Result, Serum Comment Normal [facility] Comment on above: Result Comment: No m onoclonality detected. Performed By: #### I MFXPRT #### [facility] [address] [address] [address] Georgina Urbina Immunoglobulin A, Qn, Serum 199 mg/dL Normal 90-386 [facility] Comment on above: Performed By: #### I MFXPRT #### [facility] [address] [address] [address] Georgina Urbina Immunoglobulin G, Qn, Serum 780 mg/dL Normal 603-1613 [facility] Comment on above: Performed By: #### I MFXPRT #### [facility] [address] [address] [address] Georgina Urbina Immunoglobulin M, Qn, Serum 50 mg/dL Normal 20-172 [facility] Comment on above: Performed By: #### I MFXPRT #### [facility] [address] [address] [address] Georgina Urbina M-Marlo Not Observed Normal Not Observed [facility] Comment on above: Performed By: #### I MFXPRT #### [facility] [address] [address] [address] Georgina Urbina PDF . Normal [facility] Comment on above: Performed By: #### I MFXPRT #### [facility] [address] [address] [address] Georgina Urbina Please note: Comment Normal [facility] Comment on above: Result Comment: Prot ein electrophoresis scan will follow via computer, mail, or medical equipment technician delivery. Performed By: #### I MFXPRT #### [facility] [address] [address] [address] Georgina Urbina Protein [Mass/Vol] 6.6 g/dL Normal 6.0-8.5 [facility] Comment on above: Performed By: #### I MFXPRT #### [facility] [address] [place] [address] Dr. Georgina Urbina IMMUNOGLOBULINS IGA/IGM/IGG QUANTITATIVEon 10-11-2021 Immunoglobulin A, Qn, Serum 200 mg/dL Normal 90-386 [facility] Comment on above: Performed By: #### I MFXPRT #### [facility] [address] [place] [address] Dr. Georgina Urbina Immunoglobulin G, Qn, Serum 767 mg/dL Normal 603-1613 [facility] Comment on above: Performed By: #### I MFXPRT #### [facility] [address] [place] [address] Dr. Georgina Urbina Immunoglobulin M, Qn, Serum 58 mg/dL Normal 20-172 [facility] Comment on above: Performed By: #### I MFXPRT #### [facility] [address] [place] [address] Dr. Georgina Urbina CBC AUTO DIFFon 09-14-2021 BASO # 0.1 103/ul Normal 0.0-0.1 [facility] Comment on above: Performed By: #### I MFXPRT #### [facility] [address] [place] [address] Dr. Georgina Urbina Basophils/100 WBC (Bld) 0.7 % Normal 0.2-2.0 [facility] Comment on above: Performed By: #### I MFXPRT #### [facility] [address] [place] [address] Dr. Georgina Urbina EO # 0.1 103/ul Normal 0.0-0.7 [facility] Comment on above: Performed By: #### I MFXPRT #### [facility] [address] [place] [address] Dr. Georgina Urbina Eosinophils/100 WBC (Bld) 0.9 % Normal 0.9-7.0 [facility] Comment on above: Performed By: #### I MFXPRT #### [facility] [address] [place] [address] Dr. Georgina Urbina Erythrocyte distribution width (RBC) [Ratio] 13.5 % Normal 11.0-15.0 [facility] Comment on above: Performed By: #### I MFXPRT #### [facility] [address] [place] [address] Dr. Georgina Urbina Hematocrit (Bld) [Volume fraction] 46.9 % Normal 42.0-54.0 [facility] Comment on above: Performed By: #### I MFXPRT #### [facility] [address] [place] [address] Dr. Georgina Urbina Hemoglobin (Bld) [Mass/Vol] 15.1 g/dL Normal 14.0-18.0 [facility] Comment on above: Performed By: #### I MFXPRT #### [facility] [address] [place] [address] Dr. Georgina Urbina IG # 0.05 10e3/ul Critically high 0.00-0.03 [facility] Comment on above: Performed By: #### I MFXPRT #### [facility] [address] [place] [address] Dr. Georgina Urbina IG % 0.7 % Critically high 0.0-0.5 [facility] Comment on above: Performed By: #### I MFXPRT #### [facility] [address] [place] [address] Dr. Georgina Urbina LYMPH # 0.6 103/ul Critically low 1.2-3.8 [facility] Comment on above: Performed By: #### I MFXPRT #### [facility] [address] [place] [address] Dr. Georgina Urbina Lymphocytes/100 WBC (Bld) 7.9 % Critically low 20.5-60.0 [facility] Comment on above: Performed By: #### I MFXPRT #### [facility] [address] [place] [address] Dr. Georgina Urbina MANUAL DIFF REQ NO Normal [facility] Comment on above: Performed By: #### I MFXPRT #### [facility] [address] [place] [address] Dr. Georgina Urbina MCH (RBC) [Entitic mass] 27.3 pg Normal 25.9-34.0 [facility] Comment on above: Performed By: #### I MFXPRT #### [facility] [address] [place] [address] Dr. Georgina Urbina MCHC (RBC) [Mass/Vol] 32.2 g/dL Normal 29.9-35.2 [facility] Comment on above: Performed By: #### I MFXPRT #### [facility] [address] [place] [address] Dr. Georgina Urbina MCV (RBC) [Entitic vol] 84.7 fL Normal 80.0-94.0 [facility] Comment on above: Performed By: #### I MFXPRT #### [facility] [address] [place] [address] Dr. Georgina Urbina MONO # 0.3 103/ul Normal 0.3-0.8 [facility] Comment on above: Performed By: #### I MFXPRT #### [facility] [address] [place] [address] Dr. Georgina Urbina Monocytes/100 WBC (Bld) 4.3 % Normal 1.7-12.0 [facility] Comment on above: Performed By: #### I MFXPRT #### [facility] [address] [place] [address] Dr. Georgina Urbina NEUT # 6.5 103/ul Normal 1.4-6.5 [facility] Comment on above: Performed By: #### I MFXPRT #### [facility] [address] [place] [address] Dr. Georgina Urbina Neutrophils/100 WBC (Bld) 85.5 % Critically high 43.0-75.0 [facility] Comment on above: Performed By: #### I MFXPRT #### [facility] [address] [place] [address] Dr. Georgina Urbina Platelet mean volume (Bld) [Entitic vol] 9.3 fL Critically low 9.5-13.5 [facility] Comment on above: Performed By: #### I MFXPRT #### [facility] [address] [place], [place] [address] Dr. Georgina Urbina PLT 194 103/ul Normal 150-450 [facility] Comment on above: Performed By: #### I MFXPRT #### [facility] [address] [place], [place] [address] Dr. Georgina Urbina RBC 5.54 106/ul Normal 4.70-6.10 [facility] Comment on above: Performed By: #### I MFXPRT #### [facility] [address] [place], [place] [address] Dr. Georgina Urbina WBC 7.6 103/ul Normal 4.0-11.0 [facility] Comment on above: Performed By: #### I MFXPRT #### [facility] [address] [place], [place] [address] ABD/PELVIS WO CONon [...] coronal image 40 Large Bowel: Scattered diverticula Mesentery/Peritoneum : Normal Vasculature: Normal Lymph Nodes: Normal Abdominal [...] ANTWAN GUERRERO Date: 2021-09-14 20:09 Normal [facility] URINE PROFILEon 2 Bilirubin Ql (U) Negative Normal NEGATIVE [facility] Comment on above: Performed By: #### I MFXPRT #### [facility] [address] [place] [address] Dr. Georgina Urbina Clarity (U) CLEAR Normal CLEAR [facility] Comment on above: Performed By: #### I MFXPRT #### [facility] [address] [place] [address] Dr. Georgina Urbina Color (U) YELLOW Normal YELLOW [facility] Comment on above: Performed By: #### I MFXPRT #### [facility] [address] [place] [address] Dr. Georgina LATHAM A micrscopic examination will be performed if indicated. Normal [facility] Comment on above: Performed By: #### I MFXPRT #### [facility] [address] [place] [address] Dr. Georgina Urbina Glucose Ql (U) Negative Normal NEGATIVE [facility] Comment on above: Performed By: #### I MFXPRT #### [facility] [address] [place] [address] Dr. Georgina Urbina Hemoglobin Ql (U) LARGE Abnormal NEGATIVE [facility] Comment on above: Performed By: #### I MFXPRT #### [facility] [address] [place] [address] Dr. Georgina Urbina Ketones Ql (U) Negative Normal NEGATIVE [facility] Comment on above: Performed By: #### I MFXPRT #### [facility] [address] [place] [address] Dr. Georgina Urbina LEUKOCYTES Negative Normal NEGATIVE [facility] Comment on above: Performed By: #### I MFXPRT #### [facility] [address] [place] [address] [address] Georgina Urbina Nitrite Ql (U) Negative Normal NEGATIVE [facility] Comment on above: Performed By: #### I MFXPRT #### [facility] [address] [address] [address] Georgina Urbina pH (U) 5.5 [pH] Normal 5-9 [facility] Comment on above: Performed By: #### I MFXPRT #### [facility] [address] [place] [address] Dr. Georgina Urbina SPEC GRAVITY >=1.030 Abnormal 1.005-<=1.025 [facility] Comment on above: Performed By: #### I MFXPRT #### [facility] [address] [place] [address] Dr. Georgina Urbina UA PROTEIN Negative Normal NEGATIVE/ TRACE [facility] Comment on above: Performed By: #### I MFXPRT #### [facility] [address] [place] [address] Dr. Georgina Urbina UR MICRO IND INDICATED Normal [facility] Comment on above: Performed By: #### I MFXPRT #### [facility] [address] [place] [address] Dr. Georgina Urbina Urobilinogen Qn (U) 0.2 {Davina'U}/dL Normal 0.2 - 1. 0 [facility] Comment on above: Performed By: #### I MFXPRT #### [facility] [address] [place] [address] Dr. Georgina Urbina LACTATE/LACTIC ACIDon 2021 Lactate [Moles/Vol] 1.4 mmol/L Normal 0.4-1.9 [facility] Comment on above: Performed By: #### I MFXPRT #### [facility] [address] [place] [address] Dr. Georgina Urbina Lactate [Moles/Vol] 1.3 mmol/L Normal 0.4-1.9 [facility] Comment on above: Performed By: #### L ACT #### [facility] [address] [place] [address] Dr. Georgina Urbina LIPASEon 09-14-2021 Lipase [Catalytic activity/Vol] 85.0 U/L Normal 73.0-393.0 [facility] Comment on above: Performed By: #### C MP, LIPA #### [facility] [address] [place] [address] Dr. Georgina Urbina PROF 14(COMP METB)on 022 Albumin [Mass/Vol] 3.6 g/dL Normal 3.4-5.0 [facility] Comment on above: Performed By: #### I MFXPRT #### [facility] [address] [place] [address] Dr. Georgina Urbina Albumin/Globulin [Mass ratio] 1.1 {ratio} Normal [facility] Comment on above: Performed By: #### I MFXPRT #### [facility] [address] [place] [address] Dr. Georgina Urbina ALP [Catalytic activity/Vol] 103 U/L Normal 46-116 [facility] Comment on above: Performed By: #### I MFXPRT #### [facility] [address] [place] [address] Dr. Georgina Urbina ALT [Catalytic activity/Vol] 22 U/L Normal 16-63 [facility] Comment on above: Performed By: #### I MFXPRT #### [facility] [address] [place] [address] Dr. Georgina Urbina Anion gap [Moles/Vol] 14.8 mmol/L Normal [facility] Comment on above: Performed By: #### I MFXPRT #### [facility] [address] [place] [address] Dr. Georgina Urbina AST [Catalytic activity/Vol] 10 U/L Critically low 15-37 [facility] Comment on above: Performed By: #### I MFXPRT #### [facility] [address] [place] [address] [address] Georgina Urbina Bilirubin [Mass/Vol] 0.8 mg/dL Normal 0.2-1.0 [facility] Comment on above: Performed By: #### I MFXPRT #### [facility] [address] [address] [address] Georgina Urbina Calcium [Mass/Vol] 8.5 mg/dL Normal 8.5-10.1 [facility] Comment on above: Performed By: #### I MFXPRT #### [facility] [address] [place] [address] Dr. Georgina Urbina Chloride [Moles/Vol] 108 mmol/L Critically high 98-107 [facility] Comment on above: Performed By: #### I MFXPRT #### [facility] [address] [place] [address] Dr. Georgina Urbina CO2 [Moles/Vol] 23.6 mmol/L Normal 21.0-32.0 [facility] Comment on above: Performed By: #### I MFXPRT #### [facility] [address] [place] [address] Dr. Georgina Urbina Creatinine [Mass/Vol] 1.23 mg/dL Normal 0.70-1.30 [facility] Comment on above: Performed By: #### I MFXPRT #### [facility] [address] [place] [address] Dr. Georgina Urbina EGFR-AF ALGERIAN >60 Normal >=60 [facility] Comment on above: Performed By: #### I MFXPRT #### [facility] [address] [place] [address] Dr. Georgina Urbina EGFR-NON AF ALGERIAN >60 Normal >=60 [facility] Comment on above: Performed By: #### I MFXPRT #### [facility] [address] [place] [address] Dr. Georgina Urbina Globulin (S) [Mass/Vol] 3.2 g/dL Normal [facility] Comment on above: Performed By: #### I MFXPRT #### [facility] [address] [place] [address] Dr. Georgina Urbina Glucose [Mass/Vol] 139 mg/dL Critically high 74-106 [facility] Comment on above: Performed By: #### I MFXPRT #### [facility] [address] [place] [address] Dr. Georgina Urbina Potassium [Moles/Vol] 3.4 mmol/L Critically low 3.5-5.1 [facility] Comment on above: Performed By: #### I MFXPRT #### [facility] [address] [place] [address] Dr. Georgina Urbina Protein [Mass/Vol] 6.8 g/dL Normal 6.4-8.2 [facility] Comment on above: Performed By: #### I MFXPRT #### [facility] [address] [place] [address] Dr. Georgina Urbina Sodium [Moles/Vol] 143 mmol/L Normal 136-145 [facility] Comment on above: Performed By: #### I MFXPRT #### [facility] [address] [place] [address] Dr. Georgina Urbina Urea nitrogen [Mass/Vol] 14.0 mg/dL Normal 7.0-18.0 [facility] Comment on above: Performed By: #### I MFXPRT #### [facility] [address] [place] [address] Dr. Georgina Urbina Urea nitrogen/Creatinine [Mass ratio] 11.4 mg/mg Normal [facility] Comment on above: Performed By: #### I MFXPRT #### [facility] [address] [place] [address] Dr. Georgina Urbina URINE MICROSCOPIC ONLYon BACTERIA NONE SEEN Normal NONE SEEN [facility] Comment on above: Performed By: #### I MFXPRT #### [facility] [address] [place] [address] Dr. Georgina Urbina Bacteria identified Cx Nom (U) NOT INDICATED Normal [facility] Comment on above: Performed By: #### I MFXPRT #### [facility] [address] [place] [address] Dr. Georgina Urbina CAST NONE SEEN Normal NONE SEEN [facility] Comment on above: Performed By: #### I MFXPRT #### [facility] [address] [place] [address] Dr. Georgina Urbina Crystals LM Nom (Urine sed) NONE SEEN Normal NONE SEEN [facility] Comment on above: Performed By: #### I MFXPRT #### [facility] [address] [place] [address] Dr. Georgina Urbina Epithelial cells LM Ql (Urine sed) RARE Normal NONE SEEN /RARE [facility] Comment on above: Performed By: #### I MFXPRT #### [facility] [address] [place] [address] Dr. Georgina Urbina MUCOUS TRACE Abnormal NONE SEEN [facility] Comment on above: Performed By: #### I MFXPRT #### [facility] [address] [place] [address] Dr. Georgina Urbina RBC 20-50 Abnormal 0-2 [facility] Comment on above: Performed By: #### I MFXPRT #### [facility] [address] [place] [address] Dr. Georgina Urbina WBC 0-2 Abnormal NONE SEEN [facility] Comment on above: Performed By: #### I MFXPRT #### [facility] [address] [place] [address] Dr. Georgina Urbina CBC AUTO DIFFon 07-23-2021 BASO # 0.1 103/ul Normal 0.0-0.1 [facility] Comment on above: Performed By: #### C BC #### [facility] [address] [place] [address] Dr. Georgina Urbina Basophils/100 WBC (Bld) 1.4 % Normal 0.2-2.0 [facility] Comment on above: Performed By: #### C BC #### [facility] [address] [place] [address] [address] Georgina Urbina EO # 0.3 103/ul Normal 0.0-0.7 [facility] Comment on above: Performed By: #### C BC #### [facility] [address] [address] [address] Georgina Urbina Eosinophils/100 WBC (Bld) 4.9 % Normal 0.9-7.0 [facility] Comment on above: Performed By: #### C BC #### [facility] [address] [place] [address] Dr. Georgina Urbina Erythrocyte distribution width (RBC) [Ratio] 13.7 % Normal 11.0-15.0 [facility] Comment on above: Performed By: #### C BC #### [facility] [address] [place] [address] Dr. Georgina Urbina Hematocrit (Bld) [Volume fraction] 53.4 % Normal 42.0-54.0 [facility] Comment on above: Performed By: #### C BC #### [facility] [address] [place] [address] Dr. Georgina Urbina Hemoglobin (Bld) [Mass/Vol] 16.8 g/dL Normal 14.0-18.0 [facility] Comment on above: Performed By: #### C BC #### [facility] [address] [address] [address] Georgina Urbina IG # 0.05 10e3/ul Critically high 0.00-0.03 [facility] Comment on above: Performed By: #### C BC #### [facility] [address] [address] [address] Georgina Urbina IG % 0.9 % Critically high 0.0-0.5 [facility] Comment on above: Performed By: #### C BC #### [facility] [address] [address] [address] Georgina Urbina LYMPH # 1.1 103/ul Critically low 1.2-3.8 [facility] Comment on above: Performed By: #### C BC #### [facility] [address] [place] [address] Dr. Georgina Urbina Lymphocytes/100 WBC (Bld) 19.0 % Critically low 20.5-60.0 [facility] Comment on above: Performed By: #### C BC #### [facility] [address] [place] [address] Dr. Georgina Urbina MANUAL DIFF REQ NO Normal [facility] Comment on above: Performed By: #### C BC #### [facility] [address] [place] [address] Dr. Georgina Urbina MCH (RBC) [Entitic mass] 26.8 pg Normal 25.9-34.0 [facility] Comment on above: Performed By: #### C BC #### [facility] [address] [place] [address] Dr. Georgina Urbina MCHC (RBC) [Mass/Vol] 31.5 g/dL Normal 29.9-35.2 [facility] Comment on above: Performed By: #### C BC #### [facility] [address] [place] [address] Dr. Georgina Urbina MCV (RBC) [Entitic vol] 85.2 fL Normal 80.0-94.0 [facility] Comment on above: Performed By: #### C BC #### [facility] [address] [place] [address] Dr. Georgina Urbina MONO # 0.5 103/ul Normal 0.3-0.8 [facility] Comment on above: Performed By: #### C BC #### [facility] [address] [place] [address] Dr. Georgina Urbina Monocytes/100 WBC (Bld) 8.3 % Normal 1.7-12.0 [facility] Comment on above: Performed By: #### C BC #### [facility] [address] [place] [address] Dr. Georgina Urbina NEUT # 3.6 103/ul Normal 1.4-6.5 [facility] Comment on above: Performed By: #### C BC #### [facility] [address] [address] [address] Georgina Urbina Neutrophils/100 WBC (Bld) 65.5 % Normal 43.0-75.0 [facility] Comment on above: Performed By: #### C BC #### [facility] [address] [address] [address] Georgina Urbina Platelet mean volume (Bld) [Entitic vol] 10.1 fL Normal 9.5-13.5 [facility] Comment on above: Performed By: #### C BC #### [facility] [address] [address] [address] Georgina Urbina PLT 279 103/ul Normal 150-450 [facility] Comment on above: Performed By: #### C BC #### [facility] [address] [place] [address] Dr. Georgina Urbina RBC 6.27 106/ul Critically high 4.70-6.10 [facility] Comment on above: Performed By: #### C BC #### [facility] [address] [place] [address] Dr. Georgina Urbina WBC 5.5 103/ul Normal 4.0-11.0 [facility] Comment on above: Performed By: #### C BC #### [facility] [address] [place] [address] Dr. Georgina Urbina LIPID PROFILEon 07-23-2021 CHOL-HDL RATIO NORM SEE BELOW Normal [facility] Comment on above: Result Comment: 3.3 - 4.4 LOW RISK 4.4 - 7.1 AVERAGE RISK 7.1 - 11.0 MODERATE RISK >11.0 HIGH RISK Performed By: #### L IPID, CMP #### [facility] [address] [address] [address] Georgina Urbina Cholesterol [Mass/Vol] 176 mg/dL Normal <=200 [facility] Comment on above: Performed By: #### L IPID, CMP #### [facility] [address] [address] [address] Georgina Urbina Cholesterol in HDL [Mass/Vol] 37 mg/dL Critically low 40-60 [facility] Comment on above: Performed By: #### L IPID, CMP #### [facility] [address] [address] [address] Georgina Urbina Cholesterol in LDL [Mass/Vol] 109.8 mg/dL Normal [facility] Comment on above: Performed By: #### L IPID, CMP #### [facility] [address] [address] [address] Georgina Urbina Cholesterol.total/Ch olesterol in HDL [Mass ratio] 4.8 {ratio} Normal [facility] Comment on above: Performed By: #### L IPID, CMP #### [facility] [address] [address] [address] Georgina Urbina HDL NORMAL > or = 60 mg/dl - LOW CARDIOVASCULAR RISK <40 mg/dl - HIGH CARDIOVASCULAR RISK Normal [facility] Comment on above: Performed By: #### L IPID, CMP #### [facility] [address] [place] [address] Dr. Georgina Urbina LDL CALC NORMAL SEE BELOW Normal [facility] Comment on above: Result Comment: <100 mg/dl OPTIMAL 100 - 129 mg/dl NEAR OR ABOVE OPTIMAL 130 - 159 mg/dl BORDERLINE HIGH 160 - 189 mg/dl HIGH >190 mg/dl VERY HIGH Performed By: #### L IPID, CMP #### [facility] [address] [place] [address] Dr. Georgina Urbina Triglyceride [Mass/Vol] 146 mg/dL Normal <=150 [facility] Comment on above: Performed By: #### L IPID, CMP #### [facility] [address] [place] [address] Dr. Georgina Urbina VLDL CALC 29.2 mg/dL Normal [facility] Comment on above: Performed By: #### L IPID, CMP #### [facility] [address] [place] [address] Dr. Georgina Urbina PROF 14(COMP METB)on 022 Albumin [Mass/Vol] 4.4 g/dL Normal 3.4-5.0 [facility] Comment on above: Performed By: #### L IPID, CMP #### [facility] [address] [address] [address] Georgina Urbina Albumin/Globulin [Mass ratio] 1.3 {ratio} Normal [facility] Comment on above: Performed By: #### L IPID, CMP #### [facility] [address] [address] [address] Georgina Urbina ALP [Catalytic activity/Vol] 95 U/L Normal 46-116 [facility] Comment on above: Performed By: #### L IPID, CMP #### [facility] [address] [address] [address] Georgina Urbina ALT [Catalytic activity/Vol] 20 U/L Normal 16-63 [facility] Comment on above: Performed By: #### L IPID, CMP #### [facility] [address] [address] [address] Georgina Urbina Anion gap [Moles/Vol] 14.0 mmol/L Normal [facility] Comment on above: Performed By: #### L IPID, CMP #### [facility] [address] [address] [address] Georgina Urbina AST [Catalytic activity/Vol] 14 U/L Critically low 15-37 [facility] Comment on above: Performed By: #### L IPID, CMP #### [facility] [address] [address] [address] Georgina Urbina Bilirubin [Mass/Vol] 1.0 mg/dL Normal 0.2-1.0 [facility] Comment on above: Performed By: #### L IPID, CMP #### [facility] [address] [address] [address] Georgina Urbina Calcium [Mass/Vol] 9.0 mg/dL Normal 8.5-10.1 [facility] Comment on above: Performed By: #### L IPID, CMP #### [facility] [address] [address] [address] Georgina Urbina Chloride [Moles/Vol] 102 mmol/L Normal 98-107 [facility] Comment on above: Performed By: #### L IPID, CMP #### [facility] [address] [address] [address] Georgina Urbina CO2 [Moles/Vol] 27.4 mmol/L Normal 21.0-32.0 [facility] Comment on above: Performed By: #### L IPID, CMP #### [facility] [address] [address] [address] Georgina Urbina Creatinine [Mass/Vol] 1.19 mg/dL Normal 0.70-1.30 [facility] Comment on above: Performed By: #### L IPID, CMP #### [facility] [address] [address] [address] Georgina Urbina EGFR-AF ALGERIAN >60 Normal >=60 [facility] Comment on above: Performed By: #### L IPID, CMP #### [facility] [address] [address] [address] Georgina Urbina EGFR-NON AF ALGERIAN >60 Normal >=60 [facility] Comment on above: Performed By: #### L IPID, CMP #### [facility] [address] [address] [address] Georgina Urbina Globulin (S) [Mass/Vol] 3.3 g/dL Normal [facility] Comment on above: Performed By: #### L IPID, CMP #### [facility] [address] [address] [address] Georgina Urbina Glucose [Mass/Vol] 113 mg/dL Critically high 74-106 [facility] Comment on above: Performed By: #### L IPID, CMP #### [facility] [address] [address] [address] Georgina Urbina Potassium [Moles/Vol] 4.4 mmol/L Normal 3.5-5.1 [facility] Comment on above: Performed By: #### L IPID, CMP #### [facility] [address] [address] [address] Georgina Urbina Protein [Mass/Vol] 7.7 g/dL Normal 6.1-8.2 [facility] Comment on above: Performed By: #### L IPID, CMP #### [facility] [address] [address] [address] Georgina Urbina Sodium [Moles/Vol] 139 mmol/L Normal 136-145 [facility] Comment on above: Performed By: #### L IPID, CMP #### [facility] [address] [address] [address] Georgina Urbina Urea nitrogen [Mass/Vol] 11.0 mg/dL Normal 7.0-18.0 [facility] Comment on above: Performed By: #### L IPID, CMP #### [facility] [address] [address] [address] Georgina Urbina Urea nitrogen/Creatinine [Mass ratio] 9.2 mg/mg Normal [facility] Comment on above: Performed By: #### L IPID, CMP #### [facility] [address] [address] [address] Georgina Urbina US CAROTID ART BILon 021 US CAROTID ART DANIELLE EXAMINATION: US CAROTID ART DANIELLE HISTORY: Bilateral carotid artery occlusion [...] by: ILYA MORROW Date: 2021-01-03 16:55 Normal [facility] Studieson 018 Amphetamines Ql (U) Negative [facility] Barbiturates Ql (U) Negative [facility] Benzodiazepines Ql (U) Negative [facility] Bilirubin Ql (U) Negative [place] Cannabinoids Screen Ql (U) Negative [facility] Comment on above: These are unconfirme d results and should not be used for legal purposes. Drug Cut-Off Concentration: AMPH 1000 ng/mL GOYO 200 ng/mL JARAD 200 ng/mL COCM 300 ng/mL OP 300 ng/mL PCP 25 ng/mL THC 20 ng/mL Clarity Refractometry automated Nom (U) Clear [facility] Cocaine Ql (U) Negative [facility] Color Nom (U) Yellow [facility] Glucose Automated test strip mass conc (U) Normal mg/dL [facility] Hemoglobin Automated test strip Ql (U) Negative [facility] Ketones mass conc (U) Negative [facility] Leukocyte esterase Automated test strip Ql (U) Negative [facility] Nitrite Ql (U) Negative [facility] Opiates Ql (U) Negative [facility] pH (U) 7.0 [pH] 5.0-9.0 [facility] Phencyclidine Ql (U) Negative [facility] Protein mass conc (U) Negative [facility] Specific gravity Relative Density (U) 1.022 1.001-1.030 [facility] Urobilinogen mass conc (U) Normal mg/dL [facility] Albumin mass conc 3.4 g/dL 3.2-5.5 [facility] Albumin/Globulin mass ratio 1.5 {ratio} [facility] ALP enzyme act/vol 79 U/L 32-92 [facility] ALT No additional P-5'-P enzyme act/vol 19 U/L 10-60 [facility] Amylase enzyme act/vol 57 U/L 28-100 [facility] aPTT Coag time (PPP) 28.3 s 23.0-35.0 [facility] AST enzyme act/vol 23 U/L 10-42 [facility] Basophils #/vol (Bld) 0.0 10*3/uL 0.0-0.2 [facility] Basophils/100 WBC (Bld) 1.1 % [facility] Bilirubin mass conc 0.5 mg/dL 0.3-1.2 [facility] Bilirubin.direct mass conc mg/dL 0.0-0.4 [facility] Bilirubin.indirect mass conc TNP [facility] Comment on above: Test not performed Calcium mass conc 9.0 mg/dL 8.2-10.2 [facility] Chloride molar conc 110 mmol/L 95-114 [facility] CK enzyme act/vol 119 U/L 22-269 [facility] CK.MB mass conc 1.4 ng/mL 0.6-6.3 [facility] CK.MB/Creatine kinase.total Calculated CFr 1.1 0.00-2.50 [facility] CO2 molar conc 21.9 mmol/L Low 22.0-30.0 [facility] Creatinine mass conc 1.16 mg/dL 0.64-1.27 [facility] Eosinophils #/vol (Bld) 0.1 10*3/uL 0.0-0.45 [facility] Eosinophils/100 WBC (Bld) 3.8 % [facility] Erythrocyte distribution width Ratio (RBC) 15.0 % High 12.0-14.8 [facility] Ethanol mass conc TNP [facility] Comment on above: Test not performed Ethanol mass conc mg/dL [facility] Fibrin D-dimer FEU mass conc (PPP) < 200 ng/mL 0-243 [facility] Comment on above: The reference range [...] to co-morbid conditions. GFR/1.73 sq M predicted among blacks MDRD vol rate/area (S/P/Bld) mL/min/{1.73_m2} [facility] Comment on above: GFR estimated refere nce range: According to KDOQI guidelines, <60 ml/min/1.73m2 is sufficient to diagnose a patient with chronic kidney disease. GFR/1.73 sq M predicted among non-blacks MDRD vol rate/area (S/P/Bld) mL/min/{1.73_m2} [facility] Globulin mass conc (S) 2.3 g/dL [facility] Glucose mass conc 106 mg/dL High 70-100 [facility] Comment on above: ADA recommended refe rence range Random Glucose Reference Range is dependent on time and content of last meal. Glucose of more than 200 mg/dL in a nonstressed, ambulatory subject supports the diagnosis of Diabetes Mellitus. Hematocrit Volume Fraction (Bld) 40.6 % 38.8-50.0 [facility] Hemoglobin mass conc (Bld) 13.3 g/dL 13.0-17.0 [facility] INR Coag RelTime (PPP) 1.0 {INR} [facility] Comment on above: INR Therapeutic Rang e [...] 4.5 Lipase enzyme act/vol 29.0 U/L 22-51 [facility] Lymphocytes #/vol (Bld) 1.1 10*3/uL 1.00-4.8 [facility] Lymphocytes/100 WBC (Bld) 29.1 % [facility] Magnesium molar conc (Unsp spec) 1.8 mg/dL 1.6-2.6 [facility] MCH Entitic mass (RBC) 26.8 pg Low 27.5-35.2 [facility] MCHC mass conc (RBC) 32.7 g/dL 32.5-35.6 [facility] MCV Entitic volume (RBC) 81.8 fL Low 83.5-101 [facility] Monocytes #/vol (Bld) 0.3 10*3/uL 0.0-0.8 [facility] Monocytes/100 WBC (Bld) 8.6 % [facility] Neutrophils #/vol (Bld) 2.2 10*3/uL 1.8-7.7 [facility] Neutrophils/100 WBC (Bld) 57.4 % [facility] Creatinine Clearance (Chem N/A [facility] Platelet mean volume Entitic volume (Bld) 7.1 fL 6.6-10.1 [facility] Platelets #/vol (Bld) 232 10*3/uL 150-450 [facility] Potassium molar conc 4.1 mmol/L 3.5-5.1 [facility] Protein mass conc 5.7 g/dL Low 6.1-7.9 [facility] Prothrombin time (PT) Coag time (PPP) 10.6 s 9.0-12.9 [facility] RBC #/vol (Bld) 4.96 10*6/uL 3.90-5.60 [facility] Sodium molar conc 140 mmol/L 136-146 [facility] Troponin I.cardiac mass conc ng/mL 0-0.02 [facility] Comment on above: ENRIQUE MD Cut off value > or equal to 0.03 ng/mL in conjunction with clinical conditions of myocardial infarction. (www.escardio.org/guidelines) Urea nitrogen mass conc 9 mg/dL 12-19 [facility] WBC #/vol (Bld) 3.8 10*3/uL Low 4.5-11.0 [place] Troponin I.cardiac mass conc 0.00 ng/mL 0.00-0.03 [facility] Comment on above: ER/ESD physician is notified/shown all ISTAT results. Critical values may be confirmed by laboratory testing if deemed necessary by ER attending doctor. Vital Signs Date Time Vital Sign Value Performing Clinician Facility 04-27-2023 13:30-0500 Body height 175.26 cm Luis Ho Other [facility] [employer] Other 04-27-2023 13:30-0500 Body mass index (BMI) [Ratio] 32.19 kg/m2 Luis Ho Other [facility] Other 04-27-2023 13:30-0500 Body temperature 97.8 [degF] Luis Ho Other [facility] Other 04-27-2023 13:30-0500 Body weight 98.88 kg Luis Ho Other [facility] Other 04-27-2023 13:30-0500 SaO2% (BldA) [Mass fraction] 98 % Luis Ho Other [facility] Other 07-23-2022 15:01-0400 Body height 173.99 cm Shaikh Lanie Work Phone: [facility] Work Phone: 07-23-2022 15:01-0400 Body mass index (BMI) [Ratio] 32.57 kg/m2 Shaikh Lanie Work Phone: TV-Hdvtkvsao-Yumirp ke [facility] DO Work Phone: 07-23-2022 15:01-0400 Body surface area Derived from formula 2.13 m2 Shaikh Lanie Work Phone: BM-Loxxaroxe-Phmlzv ke [facility] DO Work Phone: 07-23-2022 15:01-0400 Body temperature 96.4 [degF] Shaikh Lanie Work Phone: GS-Rbnmgproq-Nwfuyl ke [facility] DO Work Phone: 07-23-2022 15:01-0400 Body weight 98.6 kg Shaikh Lanie Work Phone: XX-Koelwusap-Kmbfsa ke [facility] DO Work Phone: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
[2023-08-16 16:03] LABS: Alanine Aminotransferase 17 U/L (16-63); Albumin Level 3.5 g/dL (3.4-5.0); Alkaline Phosphatase 101 U/L (46-116); Anion Gap 13.4; Aspartate Amino Transferase 10 U/L (15-37); BUN Creatinine Ratio 22.2; Bilirubin Total 0.5 mg/dL (0.2-1.0); Calcium 9.2 mg/dL (8.5-10.1); Carbon Dioxide 25.6 mmol/L (21.0-32.0); Chloride 106 mmol/L (98-107); Estimated GFR (African America >60 (>=60); Estimated GFR (Non-African Ame >60 (>=60); Globulin 3.5 g/dL; Glucose 115 mg/dL (74-106); Sodium 141 mmol/L (136-145)
--- NOTE | 2023-08-16 18:57 | MR_ITS ---
The [address] [address] Patient Name: TAJ KOTHARI MRN: [id number] date: 1965 Sex: M Assigned Patient Location: [place] Current Patient Location: [place] Accession/Order Number: [id number] Exam Date: 08/16/2023 10:58 Report Date: 08/17/2023 11:58 At the request of: NATALIE SWEET Procedure: MR head/brain wo con EXAM: MR head/brain wo con HISTORY: AMS, transient blurred vision, symptoms resolved COMPARISON: CTA head and neck and CT head 08/16/2023. TECHNIQUE: Multiplanar multisequence MR imaging of the brain was performed without intravenous contrast FINDINGS: Calvarium/skull base: No focal marrow replacing lesion suggestive of neoplasm. Orbits: Grossly unremarkable. Paranasal sinuses: Imaged portions clear Brain: No restricted diffusion. Multifocal remote supratentorial infarct slightly more prominent on the right and greater superiorly. Remote bilateral anterior caudate body infarct. Remote right greater than left cerebellar infarct. Mild superimposed T2 FLAIR hyperintensities are present involving the supratentorial white matter which most commonly relates to sequela small vessel disease. No mass effect, hemorrhage, or hydrocephalus. Grossly normal flow-related signal in the major intracranial arteries and dural sinuses. MR/MR head/brain wo con IMPRESSION: 1. No acute intracranial process. 2. 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 Electronically authenticated by: MARIAELENA LO Date: 08/17/2023 11:58
[2023-08-16 19:54] LABS: Erythrocyte Sedimentation Rate 34 mm/hr (<=20)
[2023-08-16 20:04] LABS: C Reactive Protein <0.50 mg/dL (<=0.50)
--- NOTE | 2023-08-16 20:11 | P.HP_ITS ---
HPI H&P: HPI History of Present Illness Chief complaint: BLURRY VISION, Diplopia, TIA Narrative: Patient presented to the emergency room with acute onset of blurry vision and double vision. Workup in the ER for stroke did not reveal a stroke. Consultation with telestroke recommended patient be admitted here for continued workup. Patient has a significant history of sounds like carotid artery stenting. Will need to track down his previous records When I saw patient up on the medical surgical floor, patient states that blurred vision is improving. If he closes one of his eyes his admission is back to normal. Double vision concerning for stroke. 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 ?Z87.74 - Personal history of (corrected) congenital malformations of heart and circulatory system (ICD-10) Broken ankle ?S82.899A - Other fracture of unspecified lower leg, initial encounter for closed fracture (ICD-10) Broken femur ?S72.90XA - Unspecified fracture of unspecified femur, initial encounter for closed fracture (ICD-10) Broken arm ?S42.309A - Unspecified fracture of shaft of humerus, unspecified arm, initial encounter for closed fracture (ICD-10) CVA (cerebral vascular accident) ?I63.9 - Cerebral infarction, unspecified (ICD-10) Surgical History (Updated 08/16/23 @ 18:14 by Marva Samuels LPN) H/O vasectomy ?Z98.52 - Vasectomy status (ICD-10) Hx of cholecystectomy ?Z90.49 - Acquired absence of other specified parts of digestive tract (ICD- 10) Family History (Updated 08/16/23 @ 18:09 by Marva Samuels LPN) Other Family history not known due to adoption Social History (Updated 08/16/23 @ 18:16 by Marva Samuels LPN) Smoking status: Former smoker Non-prescribed substance use: denies use Previous occupational history: disabled Known occupational exposures/hazards: No Highest level of school completed/degree received: some college, no degree Are you now , , , , never or living with a partner: In a typical week, how many times do you talk on the telephone with family, friends, or neighbors: once per week How often do you get together with friends or relatives: once per week How often do you attend baptist or shinto services: never Do you belong to any clubs or organizations such as baptist groups unions, [employer] or athletic groups, or school groups: no Total score: 0 Score interpretation: A score of less than or equal to 1 indicates the most socially isolated. Little interest or pleasure in doing things: not at all Feeling down, depressed, or hopeless: not at all Feel stressed/tense/nervous/anxious/difficulty sleeping: not at all Due to disability, difficulty making decisions: No Do you think of yourself as: straight/heterosexual Gender Identity: male Meds Home Medications and Allergies Home Medications ?Medication ?Instructions ?Recorded ?Confirmed ?Type propranolol 120 mg capsule,24 120 mg PO DAILY 08/16/23 08/16/23 History hr,extended release rosuvastatin 20 mg tablet 20 mg PO DAILY 08/16/23 08/16/23 History Allergies Allergy/AdvReac Type Severity Reaction Status Date / Time Penicillins Allergy Intermediate Hives Verified 08/16/23 14:36 Sulfa (Sulfonamide Allergy Mild Hives Verified 08/16/23 14:36 Antibiotics) chocolate Allergy Verified 08/16/23 18:08 mustard seed Allergy Intermediate Uncoded 08/16/23 18:08 beer Allergy Uncoded 08/16/23 18:08 horse radish Allergy Uncoded 08/16/23 18:08 Exam Constitutional Vital Signs, click to edit/add: Last Vital Signs Temp 97.8 F 08/16/23 18:35 Pulse 72 08/16/23 19:50 Resp 16 08/16/23 18:35 BP 146/90 H 08/16/23 18:35 Pulse Ox 96 08/16/23 18:35 O2 Del Method Room Air 08/16/23 18:35 Documenting provider has reviewed patient's vital signs: yes Common normals: no apparent distress HENMT Common normals: normocephalic and head/scalp atraumatic Eye Common normals: PERRL and EOMs intact bilaterally Chest Common normals: inspection of chest normal and palpation of chest normal Respiratory Common normals: normal respiratory effort and no retractions Cardio Common normals: regular rate and regular rhythm GI Common normals: Normal to inspection, nondistended, normoactive bowel sounds p resent Results Labs Labs: Short CBC 08/16/23 Range/Units 14:50 WBC 6.8 (4.0-11.0) 10^3/uL Hgb 14.5 (14.0-18.0) g/dL Hct 46.6 (42.0-54.0) % Plt Count 239 (150-450) 10^3/uL BMP 08/16/23 14:50 Sodium 141 Potassium 4.0 Chloride 106 Carbon Dioxide 25.6 BUN 22.0 H Creatinine 0.99 Glucose 115 H Calcium 9.2 Liver Function 08/16/23 Range/Units 14:50 Total Bilirubin 0.5 (0.2-1.0) mg/dL AST 10 L (15-37) U/L ALT 17 (16-63) U/L Alkaline Phosphatase 101 (46-116) U/L Albumin 3.5 (3.4-5.0) g/dL Assessment and Plan Assessment and Plan (1) Transient ischemic attack (TIA): (2) Diplopia: (3) Subclavian artery stenosis, right: (4) 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 Workup in ER for stroke was showed no acute significant findings. Does have some abnormalities on his CTA. Case was discussed with telestroke who recommended patient stay here, admitted inpatient overnight for further evaluation tomorrow. Will start patient on aspirin and Plavix at night. Plan based on evaluation from telestroke in a.m. Uncontrolled hypertension-will place patient on as needed hydralazine and continue with home. Monitor closely. Need to be careful not to drop blood pressure rapidly. Hypercholesterolemia-continue with home medications Admission status: With significant blood pressure elevation on admission and TIA versus stroke type symptoms. Although symptoms are improving, medically necessary treatment will likely span 2 midnights due to his difficulty with blood pressure control. And unable to decrease blood pressure quickly secondary to CVA symptoms. Place patient inpatient status for medically necessary treatment likely spanning 2 midnights
[2023-08-16] MEDS: ASPIRIN 81 MG TAB.CHEW PO (20:55)
[2023-08-16] MEDS: CLOPIDOGREL BISULFATE 75 MG TABLET PO (20:55)
[2023-08-17] VITALS (10 sets, daily range): BP systolic 122–162; BP diastolic 80–104; PULSE 63–77; TEMP 36.4–36.8; O2SAT 93–97
[2023-08-17 05:03] LABS: Anion Gap 8.8; BUN Creatinine Ratio 18.3; Basophils Absolute Auto 0.1 10^3/uL (0.0-0.1); Basophils Percent Auto 1.2 % (0.2-2.0); Calcium 8.8 mg/dL (8.5-10.1); Carbon Dioxide 29.6 mmol/L (21.0-32.0); Chloride 106 mmol/L (98-107); Eosinophils Absolute Auto 0.4 10^3/uL (0.0-0.7); Eosinophils Percent Auto 5.9 % (0.9-7.0); Estimated GFR (African America >60 (>=60); Estimated GFR (Non-African Ame >60 (>=60); Glucose 108 mg/dL (74-106); Hematocrit 43.4 % (42.0-54.0); Hemoglobin 13.7 g/dL (14.0-18.0); Immature Granulocytes Abs Auto 0.13 10^3/uL (0.00-0.03); Immature Granulocytes Pct Auto 2.2 % (0.0-0.5); Lymphocytes Absolute Auto 1.4 10^3/uL (1.2-3.8); Mean Corpuscular HGB Conc 31.6 g/dL (29.9-35.2); Mean Corpuscular Hemoglobin 26.7 pg (25.9-34.0); Mean Corpuscular Volume 84.6 fL (80.0-94.0); Monocytes Absolute Auto 0.6 10^3/uL (0.3-0.8); Monocytes Percent Auto 9.7 % (1.7-12.0); Neutrophils Absolute Auto 3.5 10^3/uL (1.4-6.5); Platelet Count 206 10^3/uL (150-450); Potassium 3.4 mmol/L (3.5-5.1); Red Blood Count 5.13 10^6/uL (4.70-6.10); Red Cell Distribution Width 13.9 % (11.0-15.0); Sodium 141 mmol/L (136-145)
--- NOTE | 2023-08-17 07:11 | CA_ITS ---
Patient Name: TAJ KOTHARI MR#: [id number] : 1965 Exam Date: 08/17/2023 Ordering Doctor: DR NATALIE SWEET . ECHOCARDIOGRAM REPORT PROCEDURE: CA ECHO DOPPLER COMPLETE INDICATIONS: Dyspnea COMPARISON: None. DESCRIPTION: COMPLETE ECHOCARDIOGRAM Real-time transthoracic echocardiography with 2D, M-mode, spectral and color flow Doppler performed. QUALITY: Technical quality was good. LEFT VENTRICLE: Normal chamber size. Thickened septal wall. LV EF: Global left ventricular systolic function is normal. Calculated left ventricular ejection fraction is 62%. Visually estimated ejection fraction is 60 to 65%. No obvious wall motion abnormalities.. DIASTOLIC: Normal diastolic function. ATRIAL SEPTUM: Inadequately seen. LEFT ATRIUM: Normal chamber size. RIGHT ATRIUM: Normal chamber size. RIGHT VENTRICLE: Normal chamber size. Normal right ventricular systolic function. TRICUSPID VALVE: Normal mobility and thickness. No stenosis with trivial regurgitation. No evidence of pulmonary hypertension. RVSP 22mmHg MITRAL VALVE: Normal mobility and thickness. No evidence of mitral valve stenosis. There is no mitral annular calcification. Mild mitral regurgitation. AORTIC VALVE: Normal trileaflet appearance. No visible sclerosis. Normal leaflet mobility. No evidence of aortic valve stenosis. Mild aortic regurgitation. AORTIC ROOT: Normal diameter and appearance. PULMONIC VALVE: Normal thickness and mobility. No stenosis. No regurgitation. PERICARDIUM: Anterior free space; trivial effusion versus fat pad. IVC: Collapses with inspirations. Normal size. CONCLUSION: 1. Global left ventricular systolic function is normal; visually estimated ejection fraction is 60 to 65% 2. Right ventricle is normal in size and systolic function 3. Normal diastolic function 4. The left atrium is normal in size 5. Mild mitral regurgitation 6. Mild aortic regurgitation 7. Anterior free space; trivial effusion versus fat pad Adult Echocardiography Procedure Report Left Ventricle LVEDD (3.7 - 5.6 cm): 3.84 cm LVESD (2.2 - 4.0 cm): 2.63 cm LVIVS thickness (0.6 - 1.2 cm): 1.60 cm LVPW thickness (0.5 - 1.0 cm): 1.19 cm e': 0.08 m/s E - e': 9.75 LVOT Max Gradient: 2.94 mm[Hg] LVOT Area (cm2): 0.86 m/s Peak Velocity (LVOT): 0.86 m/s Mean Velocity (LVOT): 0.59 m/s LVOT Diameter 2.09 cm Left Ventricular Ejection Fraction: 62.01 % Left Atrium LA Volume Index (2D A2C): 17.27 ml/m2 Left Atrium Systolic Dimension: 2.98 cm Mitral Valve MV E to A Ratio: 1.19 Mitral Valve A-Wave Peak Velocity: 0.68 m/s Mitral Valve E-Wave Peak Velocity: 0.81 m/s Right Ventricle RV Internal Diastolic Dimension: 3.84 cm Aorta AO Root Diam: 3.75 cm Ascending Ao Diam: 3.02 cm Aortic Valve AoV Area (Peak Billy): 2.89 cm2, 2.89 cm2 AoV Area (VTI): 2.79 cm2, 2.79 cm2 Peak Velocity(Antegrade Flow): 1.02 m/s Peak Gradient(Antegrade Flow): 4.13 mm[Hg] Mean Velocity(Antegrade Flow): 0.81 m/s Mean Gradient(Antegrade Flow): 2.82 mm[Hg] Velocity Time Integral: 24.77 cm Tricuspid Valve Peak Velocity (Regurgitant Flow): 2.00 m/s, 2.23 m/s Pulmonic Valve Mean Gradient: 1.35 mm[Hg], 1.22 mm[Hg] Mean Velocity: 0.55 m/s, 0.52 m/s Peak Velocity: 0.75 m/s, 0.77 m/s Peak Gradient: 2.40 mm[Hg], 2.35 mm[Hg], 2.15 mm[Hg] Right Atrium Right Atrium Systolic Pressure: 67.22 ml, 67.22 ml Dictated by: Hima Sweeney M.D. on 08/17/2023 at 15:26 Approved by: Hima Sweeney M.D. on 08/17/2023 at 15:29
[2023-08-17] MEDS: ASPIRIN 81 MG TAB.CHEW PO (09:24)
[2023-08-17] MEDS: CLOPIDOGREL BISULFATE 75 MG TABLET PO (09:24)
[2023-08-17] MEDS: PROPRANOLOL HCL 60 MG CAP.24H 120 MG PO (09:24)
--- NOTE | 2023-08-17 09:46 | CM.NOTE ---
Rounds made with Dr. Byrd, symptoms have resolved. Pt denies any blurred vision or tingling in arm. Pt will have MRI today and telestroke consult for further recommendations.
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
--- NOTE | 2023-08-17 15:52 | PC.NURSE ---
pts neurologist Dr. Ho states they do not need to see the patient for follow up and that they have instructed him back in march to follow up with his vascular drRahul
[2023-08-17 15:55] LABS: Estimated Average Glucose 103 mg/dL; Glycohemoglobin A1C 5.2 % (4.5-6.2)
[2023-08-17 15:56] LABS: Chol HDL Ratio 3.7; Cholesterol 131 mg/dL (<=200); HDL Cholesterol 35 mg/dL (40-60); Triglycerides 106 mg/dL (<=150); VLDL CHOLESTEROL 21.2 mg/dL
--- NOTE | 2023-08-19 13:55 | CM.DCFOLLOWU ---
08/18 1st attempt no answer
--- NOTE | 2023-08-20 12:46 | CM.DCFOLLOWU ---
Person spoke with: Jean How are you feeling? Better How is your pain? No pain Did you understand your discharge instructions? Yes Do you have any questions about your discharge instructions? No Were you given any prescriptions at discharge? Yes Were you able to get your prescriptions filled? Just got medication today Do you understand how to take your medications as ordered? Yes Do you have any questions about your follow up appointment and do you plan to keep your follow up appointment? No they are already scheduled and plan on going Is there anything else that you would like to discuss? No Questions/Comments/Concerns/Other:
== END 2023-08-17 18:00 | disposition home or self-care (01) ==
LOC: ER 17:03 → MS 08-17 05:33
PROVIDERS: Physician Assistant; Admitting Provider Family Medicine; Emergency Provider Emergency Medicine; PCP Internal Medicine; Visit Provider Nurse Practitioner
DX: G45.9 Transient cerebral ischemic attack, unspecified (principal); H53.2 Diplopia; I10 Essential (primary) hypertension; E78.00 Pure hypercholesterolemia, unspecified; R06.03 Acute respiratory distress; I77.1 Stricture of artery; Z87.74 Personal history of (corrected) congenital malformations of heart and circulatory system; Z79.82 Long term (current) use of aspirin; Z79.899 Other long term (current) drug therapy; Z87.891 Personal history of nicotine dependence; Z86.73 Personal history of transient ischemic attack (TIA), and cerebral infarction without residual deficits; Z87.820 Personal history of traumatic brain injury
CPT/HCPCS: 36415; 70450; 70496; 70498; 70551; 80048; 80053; 80061; 83036; 84484; 85025; 85610; 85652; 86140; 93005; 93306; 94667; 94761; 97165; 99285; G0378; Q3014; Q9967

== ENCOUNTER 2024-09-19 08:15 | Emergency (ER) | payer MEDICARE, MEDICAID, SELFPAY ==
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
--- OUTSIDE RECORDS SUMMARY | 2024-05-23 12:00 | XMS_ITS ---
Author Organization Corporate Office Address [address] [place] [address] [address] [place] [address] Care Team Providers Care Towel Sewer Name Role Phone None, None Primary Care Provider Fermin Coleman Unavailable [phone] REASON FOR VISIT phone - sleep study results [phone] Encounters Encounter Location Date Provider Diagnosis [facility] [address] [place] [address] 05/23/2024 Fermin Zimmerman Plan Of Treatment No Information Progress Notes * Jean SUNDOB: [birth year] (59 yo M)Acc No.[id number]:05/23/2024 Patient: Jean SAHNI Provider: Cass Zimmerman MD Case Label: Date Of Injury: :1965 A ge:59 Y S ex:Male Date:05/23/2024 Address:[address] [place] [address], [address] [facility] Subjective: * Chief Complaints: * 1 . Phone - sleep study results [phone]. * Medical History: Objective: * Vitals: Assessment: Plan: * Treatment: * * Electronic signature of Fermin Zimmerman MD on 09/19/2024 at 08:27 AM EDT Sign off status: Pending * Provider: Cass Zimmerman MD Date: 05/23/2024 Generated for Printi ng/Faxing/eTransmitting on: 09/19/2024 08:27 AM EDT
[2024-09-19] VITALS (22 sets, daily range): BP systolic 116–149; BP diastolic 86–116; PULSE 69–82; TEMP 37.1; O2SAT 91–96; BMI 35.8
--- OUTSIDE RECORDS SUMMARY | 2024-09-19 08:26 | XMS_ITS | Clinical Summary ---
Author Organization [facility] Address [address] [place] [address] Care Team Providers Care Environmental Protection Geologist Name Role Phone Jazz Mcnamara APRN, NP Primary Care Provide r Allergies Active Allergy Reactions Criticality Noted Date Comments Penicillins 10/29/2013 Sulfa Antibiotics 10/29/2013 Medications albuterol (PROVENTIL HFA;VENTOLIN HFA) 108 (90 BASE) MCG/ACT inhaler Inhale 2 puffs into the lungs every 6 hours as needed for Wheezing Active acetaminophen (TYLENOL) 500 MG tablet Take 1 tablet by mouth every 6 hours as needed for Pain Active Naproxen (NAPROSYN PO) Take 220 mg by mouth. Active ibuprofen (ADVIL;MOTRIN) 800 MG tablet Take 1 tablet by mouth every 8 hours as needed for Pain. 30 tablet 0 10/29/2013 Active Potassium Gluconate 550 MG TABS Take by mouth Active cetirizine (ZYRTEC) 10 MG tablet Take 1 tablet by mouth daily Active propranolol (INDERAL LA) 120 MG extended release capsule Take 1 capsule by mouth daily 05/18/2023 Active omeprazole (PRILOSEC) 20 MG delayed release capsule Take 1 capsule by mouth daily Active EPINEPHrine (PRIMATENE MIST) 0.125 MG/ACT AERO Inhale 2 puffs into the lungs as needed Active fluticasone (FLONASE) 50 MCG/ACT nasal spray 1 spray by Each Nostril route daily Active aspirin 81 MG EC tablet Take 1 tablet by mouth daily Active rosuvastatin (CRESTOR) 20 MG tablet Take 1 tablet by mouth daily 04/09/2023 Active clopidogrel (PLAVIX) 75 MG tablet Take 1 tablet by mouth daily 08/17/2023 Active magnesium oxide (MAG-OX) 400 MG tablet Take 1 tablet by mouth daily Active SUMAtriptan (IMITREX) 100 MG tablet Take 1 tablet by mouth as needed for Migraine 9 tablet 1 05/25/2024 Active Family History Medical History Relation Name Comments Lung Cancer Father Stroke Father Relation Name Status Comments Father Social History Tobacco Use Types Packs/Day Years Used Date Smoking Tobacco: Former Smokeless Tobacco: Never Tobacco Cessation:Counseling Given: Not Answered Alcohol Use Standard Drinks/Week Comments Not Currently 0 (1 standard drink = 0.6 oz pur e alcohol) Sex and Gender Information Value Date Recorded Sex Assigned at Not on file Legal Sex Male 6:52 PM EST Gender Identity Not on file Sexual Orientation Not on file Last Filed Vital Signs Vital Sign Reading Time Taken Comments Blood Pressure 163/106 05/25/2024 2:35 PM EST Pulse 86 05/25/2024 2:35 PM EST Temperature 36.1 C (96.9 F) 05/25/2024 2:27 PM EST Respiratory Rate 24 05/25/2024 2:27 PM EST Oxygen Saturation 96% 10/29/2013 12: 27 PM EDT Inhaled Oxygen Concentration - - Weight 106.1 kg (233 lb 12.8 oz) 05/25/2024 2:27 PM EST Height 172.7 cm (5' 8 ) 05/25/2024 2:27 PM EST Body Mass Index 35.55 05/25/2024 2:27 PM EST Plan of Treatment Upcoming Encounters Date Type Department Care Team (Late st Contact Info) Description 11/23/2024 3:00 PM EDT Office Visit [facility] Part of [address] [place] [address] Stuart Yi MD [address] [place] [address] [address] [place] [address] 6 month f/u hx of CVA and Seizures Health Maintenance Due Date Last Done Comments Depression Screen 1976 HIV screen 1979 Hepatitis C screen 1982 Diabetes screen 1999 Lipids 2004 Colonoscopy 2009 FIT/FOBT: Average risk 2009 Sigmoidoscopy/CT colonography 2009 Pneumococcal 50+ years Vaccine (1 of 1 - PCV) 2014 Shingles vaccine (1 of 2) 2014 COVID-19 Vaccine (1 - season) 2023 Annual Wellness Visit (Medicare Advantage) 03/29/2024 Flu vaccine (Season Ended) 2024 01/07/2018, Colorectal Cancer Screen 01/25/2026 Fecal-DNA (Cologuard): Average risk 01/25/2026 01/25/2023, 12/21/2018 DTaP/Tdap/Td vaccine (5 - Td or Tdap) 08/14/2033 08/15/2023, 11/09/2021, 06/12/2013, Additional history exists Respiratory Syncytial Virus (RSV) or age 60 yrs+ (1 - 1-dose 75+ series) 2039 Hepatitis B vaccine Aged Out 06/22/2014 No longe r eligible based on patient's age to complete this topic Hepatitis A vaccine Aged Out 08/15/2023 No longe r eligible based on patient's age to complete this topic Hib vaccine Aged Out No longer eligi ble based on patient's age to complete this topic Meningococcal (ACWY) vaccine Aged Out No longer eligible based on patient's age to complete this topic Meningococcal B vaccine Aged Out No l onger eligible based on patient's age to complete this topic Polio vaccine Aged Out No longer elig ible based on patient's age to complete this topic Insurance [place]ICAID [place] Care Teams Environmental Protection Geologist Relationship Specialty Start Date End Date Jazz Mcnamara, SOURCING CONSULTANT - FORENSIC ECONOMIST [address] [facility] [address] PCP - General Nurse Practitioner 05/25/24
--- OUTSIDE RECORDS SUMMARY | 2024-09-19 08:26 | XMS_ITS | Encounter Summary ---
Author Organization [employer] s [employer] Address [id number] [address] [place] [address] Care Team Providers Care Stock Ranch Supervisor Name Role Phone Pcp, Not In System Primary Care Provider Unavail able Encounter Details Date Type Department Care Team (Late st Contact Info) Description 06/05/2022 Telephone [facility] - Family Medicine [address] [place] [phone] Maria De Jesus Dela Cruz CMA Social History Tobacco Use Types Packs/Day Years Used Date Smoking Tobacco: Some Days Cigars Smokeless Tobacco: Never Alcohol Use Standard Drinks/Week Comments No 0 (1 standard drink = 0.6 oz pur e alcohol) Childcare Answer Date Recorded Childcare Unknown 09/07/2018 Employment Answer Date Recorded Employment Unknown 09/07/2018 Purpose - Life Answer Date Recorded Purpose and direction in life Unknown Sex and Gender Information Value Date Recorded Sex Assigned at Male 08/20/2023 5:49 PM EDT Legal Sex Male 11:32 AM EDT Gender Identity Male 08/20/2023 5:49 PM EDT Sexual Orientation Straight 08/20/2023 5: 49 PM EDT documented as of this encounter Miscellaneous Notes * Telephone Encounter - Maria De Jesus Dela Cruz CMA - 06/05/2022 9:48 AM EST Please order his Cologard. He is due 12/21/21 * Telephone Encounter - Star Sorenson DO - 06/05/2022 9:48 AM EST He transferred to [facility] documented in this encounter Plan of Treatment Not on file documented as of this encounter Visit Diagnoses Not on filedocumented in this encounter Care Teams Stock Ranch Supervisor Relationship Specialty Start Date End Date Pcp, [place] [address] PCP - General Family Medicine 02/05/24 documented as of this encounter
--- OUTSIDE RECORDS SUMMARY | 2024-09-19 08:26 | XMS_ITS | Encounter Summary ---
Author Organization [facility] Address [address] [place] [address] Care Team Providers Care Warranty Administrator Name Role Phone Ephraim Martin MD Primary Care Provider [phone] Skylar Acevedo NP Unavailable [phone] Reason for Visit * Reason Comments Med Refill Encounter Details Date Type Department Care Team (Late st Contact Info) Description 11/18/2023 Refill [facility] [address] [place] [address] Skylar Acevedo NP H/O: CVA (cerebrovascular accident) Social History Tobacco Use Types Packs/Day Years Used Date Smoking Tobacco: Former Cigarettes Passive Smoke Exposure: Past Smokeless Tobacco: Never Alcohol Use Standard Drinks/Week Comments Never 0 (1 standard drink = 0.6 oz pur e alcohol) B1300 Health Literacy Answer Date Recor ded How often do you need to hav e someone help you when you read instructions, pamphlets, or other written material from your doctor or pharmacy? Never 11/17/2023 Social Connection and Isolation Panel [NHANES] A nswer Date Recorded In a typical week, how many times do you talk on the phone with family, friends, or neighbors? Once a week 11/17/2023 How often do you get together with friends or re latives? Never 11/17/2023 How often do you attend restoration or christian serv ices? Never 11/17/2023 Do you belong to any clubs o r organizations such as restoration groups, unions, fraternal or athletic groups, or school groups? No 11/17/2023 How often do you attend meet ings of the clubs or organizations you belong to? Never 11/17/2023 Are you , , di vorced, , never , or living with a partner? 11/17/2023 AUDIT-C Answer Date Recorded Q1: How often do you have a drink containing alcohol? Never 11/17/2023 Q2: How many drinks containi ng alcohol do you have on a typical day when you are drinking? Patient does not drink Q3: How often do you have si x or more drinks on one occasion? Never 11/17/2023 Overall Financial Resource Strain (CARDIA) Answe r Date Recorded How hard is it for you to pa y for the very basics like food, housing, medical care, and heating? Not hard at all 11/17/2023 PHQ-2 Answer Date Recorded Patient Health Questionnaire-2 Score 0 08/24/2023 [facility] - Occupational Stress Questionnaire Answer Date Recorded Do you feel stress - tense, restless, nervous, or anxious, or unable to sleep at night because your mind is troubled all the time - these days? Not at all 11/17/2023 Exercise Vital Sign Answer Date Recorde d On average, how many days pe r week do you engage in moderate to strenuous exercise (like a brisk walk)? 1 day 11/17/2023 On average, how many minutes do you engage in exercise at this level? 30 min 11/17/2023 Hunger Vital Sign Answer Date Recorded Within the past 12 months, y ou worried that your food would run out before you got the money to buy more. Sometimes true Within the past 12 months, t he food you bought just didn't last and you didn't have money to get more. Never true PRAPARE - Transportation Answer Date Re corded In the past 12 months, has l ack of transportation kept you from medical appointments or from getting medications? No 10/28 In the past 12 months, has l ack of transportation kept you from meetings, work, or from getting things needed for daily living? Yes 11/17/2023 Housing Stability Vital Sign Answer Oneal e Recorded In the last 12 months, was t here a time when you were not able to pay the mortgage or rent on time? No 11/17/2023 In the past 12 months, how m any times have you moved where you were living? 0 11/17/2023 At any time in the past 12 m [facility], were you homeless or living in a senior living (including now)? No 11/17/2023 Sex and Gender Information Value Date Recorded Sex Assigned at Male 06/08/2023 11:30 AM EDT Legal Sex Male 7:17 PM EDT Gender Identity Male 06/08/2023 11:30 AM EDT Sexual Orientation Straight 06/08/2023 11 :30 AM EDT documented as of this encounter Miscellaneous Notes * Telephone Encounter - Skylar Acevedo NP - 11/20/2023 9:53 AM EDT Was just filled on 11/03/ documented in this encounter Plan of Treatment Upcoming Encounters Date Type Department Care Team (Late st Contact Info) Description 10/09/2024 1:20 PM EDT Office Visit [facility] [address] [place] [address] Jazz Mcnamara NP [address] [place] [phone] 07/16/2025 4:15 PM EDT Office Visit [facility] [address] [place] [address] Jazz Mcnamara NP [address] [place] [phone] documented as of this encounter Visit Diagnoses Diagnosis H/O: CVA (cerebrovascular accident) documented in this encounter Additional Health Concerns Assessment Noted Time PHQ-9 Depression Total Score: 0 03/17/20 23 2:00 PM EST documented as of this encounter Care Teams Warranty Administrator Relationship Specialty Start Date End Date Naderer, Ephraim, MD [address] [place] [address] PCP - General Family Medicine 11/01/23 Skylar Acevedo NP [address] [place] [phone] Nurse Practitioner Family Medicine 11/01/23 documented as of this encounter
--- OUTSIDE RECORDS SUMMARY | 2024-09-19 08:26 | XMS_ITS | Clinical Summary ---
Author Organization [employer] [facility] Address [id number] [address] [place] [address] Care Team Providers Care Tripe Finisher Name Role Phone Pcp, Not In System Primary Care Provider Unavail able Allergies Active Allergy Reactions Criticality Noted Date Comments Amoxicillin 08/25/2016 Ampicillin Hives Penicillins 08/25/2016 Sulfa (Sulfonamide Antibiotics) 07/29 Medications meclizine (ANTIVERT) 25 mg tablet Chew 25 mg and swallow 3 (three) times a day as needed for dizziness. Active tiZANidine (ZANAFLEX) 2 mg tablet Take 2 mg by mouth every 6 (six) hours as needed for muscle spasms. Active traZODone (DESYREL) 50 mg tablet Take 50 mg by mouth nightly. Active citalopram (CeleXA) 20 mg tablet Take 20 mg by mouth daily. Active lamoTRIgine (LaMICtal) 150 mg tablet Take 150 mg by mouth daily. Active pregabalin (LYRICA) 100 mg capsule Take 100 mg by mouth 2 (two) times a day. Active topiramate (TOPAMAX) 100 mg tablet Take 100 mg by mouth 2 (two) times a day. Active fluticasone (FLONASE) 50 mcg/actuation nasal spray Administer 1 spray into each nostril daily. Active acetaminophen (TYLENOL EXTRA STRENGTH) 500 mg tablet Take 1 tablet (500 mg total) by mouth every 6 (six) hours as needed for pain. Active magnesium oxide (MAGOX) 400 mg tablet Take 1 tablet (400 mg total) by mouth in the morning. Active rosuvastatin (CRESTOR) 20 mg tablet Take 1 tablet (20 mg total) by mouth in the morning. Active cetirizine (ZyrTEC) 10 MG chewable tablet Chew 1 tablet (10 mg total) and swallow in the morning. Active omeprazole (PriLOSEC OTC) 20 mg EC tablet Take 1 tablet (20 mg total) by mouth in the morning. Active aspirin 81 mg Take 1 tablet (81 mg total) by mouth in the morning. Active propranolol XL (INNOPRAN XL) 120 MG 24 hr capsule Take 1 capsule (120 mg total) by mouth nightly. Active naproxen sodium (ALEVE) 220 mg capsule Take 1 capsule (220 mg total) by mouth every 12 (twelve) hours. 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 I did tell him that there is a higher need for vasoepididymostomy 10 years after vasectomy reversal which would decrease success rate. I did tell them that approximately half the patient's with sperm in the ejaculate going to establish natural pregnancies after vasectomy reversal. We also discussed epididymal aspiration for use with IVF-ICSI. Both procedures were discussed in detail. Family History Relation Name Status Comments Father Mother Alive Social History Tobacco Use Types Packs/Day Years Used Date Smoking Tobacco: Some Days Cigars Smokeless Tobacco: Never Alcohol Use Standard Drinks/Week Comments No 0 (1 standard drink = 0.6 oz pur e alcohol) Childcare Answer Date Recorded Childcare Unknown 09/07/2018 Employment Answer Date Recorded Employment Unknown 09/07/2018 Hunger Screening Answer Date Recorded Within the past 12 months we worried whether our food would run out before we got money to buy more. Sometimes True 024 Within the past 12 months th e food we bought just didn't last and we didn't have money to get more. Sometimes True 02/05/2024 Purpose - Life Answer Date Recorded Purpose and direction in life Unknown Sex and Gender Information Value Date Recorded Sex Assigned at Male 08/20/2023 5:49 PM EDT Legal Sex Male 11:32 AM EDT Gender Identity Male 08/20/2023 5:49 PM EDT Sexual Orientation Straight 08/20/2023 5: 49 PM EDT Last Filed Vital Signs Vital Sign Reading Time Taken Comments Blood Pressure 160/100 02/05/2024 3:45 PM EST Pulse 98 02/05/2024 2:10 PM EST Temperature 36.6 C (97.9 F) 02/05/2024 2:10 PM EST Respiratory Rate 20 02/05/2024 3:45 PM EST Oxygen Saturation 96% 02/05/2024 3:45 PM EST Inhaled Oxygen Concentration - - Weight 106.6 kg (235 lb) 03/01/2024 12:26 PM EST Height 175.3 cm (5' 9 ) 02/05/2024 1:55 PM EST Body Mass Index 34.7 02/05/2024 1:55 PM EST Plan of Treatment Health Maintenance Due Date Last Done Comments Tobacco Counseling 1964 Depression Screening 1976 Adult BMI Follow Up Plan 1982 Zoster (Shingles) Vaccine (1 of 2) 2014 Influenza Vaccine 11/27/2024 01/07/2018, 11/29/2014 Tobacco Screening 02/04/2025 02/05/2024 Adult BMI Screening 03/01/2025 03/01/2024 DTaP,Tdap and Td Vaccines (5 - Td or Tdap) 08/14/2033 08/15/2023, 11/09/2021, 06/12/2013, Additional history exists Medical Devices Not on file Insurance MEDICAID [place] [employer] MEDICARE Care Teams Tripe Finisher Relationship Specialty Start Date End Date Pcp, Not In System DUC [place] [id number] PCP - General Family Medicine 02/05/24
--- OUTSIDE RECORDS SUMMARY | 2024-09-19 08:26 | XMS_ITS | Encounter Summary ---
Author Organization [facility] Address [address] [place] [address] Care Team Providers Care Duty Engineer Name Role Phone Shaikh JOSESITO Dela Cruz Primary Care Provider [phone] Ephraim Martin MD Primary Care Provider [phone] Skylar Acevedo LABORER VINEYARD Unavailable [phone] Encounter Details Date Type Department Care Team (Late st Contact Info) Description 08/17/2023 Orders Only [facility] [address] [place] [phone] Rigo Byrd MD [address] [facility] [place] [phone] Social History Tobacco Use Types Packs/Day Years Used Date Smoking Tobacco: Former Cigarettes Passive Smoke Exposure: Past Smokeless Tobacco: Never Alcohol Use Standard Drinks/Week Comments Never 0 (1 standard drink = 0.6 oz pur e alcohol) PHQ-2 Answer Date Recorded Patient Health Questionnaire-2 Score 0 06/21/2023 Sex and Gender Information Value Date Recorded Sex Assigned at Male 06/08/2023 11:30 AM EDT Legal Sex Male 7:17 PM EDT Gender Identity Male 06/08/2023 11:30 AM EDT Sexual Orientation Straight 06/08/2023 11 :30 AM EDT documented as of this encounter Plan of Treatment Upcoming Encounters Date Type Department Care Team (Late Contact Info) Description 10/09/2024 1:20 PM EDT Office Visit [facility] [address] [place] [phone] Jazz Mcnamara NP [address] [place] [phone] 07/16/2025 4:15 PM EDT Office Visit [facility] [address] [place] [phone] Jazz Mcnamara NP [address] [place] [phone] documented as of this encounter Procedures Procedure Name Priority Date/Time Associated Diagnosis Comments MRI HEAD/BRAIN WO CONTRAS Routine 08/16/2023 1:00 PM EDT documented in this encounter Results * MRI HEAD/BRAIN WO CONTRAS (08/16/2023 1:00 PM EDT) Anatomical Region Laterality Modality Radiographic Diane ging us Rigo Byrd MD IMG XR PROCEDURES Final Result documented in this encounter Visit Diagnoses Not on filedocumented in this encounter Additional Health Concerns Assessment Noted Time PHQ-9 Depression Total Score: 0 03/17/20 23 2:00 PM EST documented as of this encounter Care Teams Duty Engineer Relationship Specialty Start Date End Date Shaikh Dela Cruz MD [address] [place] [phone] PCP - General Internal Medicine 06/21/23 10/31/23 Ephraim Martin MD [address] [place] [phone] PCP - General Family Medicine 11/01/23 Skylar Acevedo NP [address] [place] [phone] Nurse Practitioner Family Medicine 11/01/23 documented as of this encounter
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
--- OUTSIDE RECORDS SUMMARY | 2024-09-19 08:27 | XMS_ITS | Referral Summary ---
Author Organization [facility] Address [address] [place] [address] Care Team Providers Care Office Machine Mechanic Name Role Phone Shaikh JOSESITO Dela Cruz Primary Care Provider [phone] Allergies Active Allergy Reactions Criticality Noted Date Comments Amoxapine Hives,Itching,Nausea And Vomiting 06/29/2023 Amoxicillin Itching 12/20/2023 Penicillins Hives,Itching,Nausea And Vomiting,Other 06/25/2008 Sulfa (Sulfonamide Antibiotics) Hives,Itching,Nausea And Vomiting,Other 06/25/2008 Medications SUMAtriptan (Imitrex) 100 mg tablet take 1 tablet by mouth USE DIRECTED 10/19/2022 Active rosuvastatin (Crestor) 20 mg tablet Take 20 mg by mouth at bedtime. 04/09/2023 Active propranolol LA (Inderal LA) 120 mg 24 hr capsule Take 120 mg by mouth in the morning. 05/18/2023 Active potassium chloride CR (Klor-Con) 10 mEq ER tablet Take 1 tablet by mouth in the morning. 08/07/2021 Active aspirin 81 mg EC tablet Take 1 tablet by mouth in the morning. Active albuterol (Ventolin HFA) 90 mcg/actuation inhaler Active esomeprazole (NexIUM) [address] capsule Take 1 capsule every day by oral route for 30 days. 06/25/2008 Active fluticasone propion-salmete roL (Advair Diskus) 100-50 mcg/dose diskus inhaler Inhale. 06/25/2008 Active clopidogrel (Plavix) 75 mg tablet Take 75 mg by mouth in the morning. 08/17/2023 Active Active Problems Problem Noted Date Diagnosed Date Aneurysm 12/16/2023 Disorder of aorta 12/16/2023 Echocardiogram abnormal 12/16/2023 Syncope 12/16/2023 Hospital discharge follow-up 08/24/2023 Overview (12/16/2023): Last Assessment & Plan: Recent hospital admission for diplopia, blurred vision [...] make an appointment. Refer to vascular neurology. Abnormal MRI of head 03/17/2023 Overview (12/16/2023): Last Assessment & Plan: Multifocal remote infarcts cerebellum and supratentorial regions [...] that was widely patent on CTA neck Aneurysm of right subclavian artery 03/17/2023 Overview (12/16/2023): Last Assessment & Plan: Last imaging in 2020 - 1.7 cm aneurysm He was seen by Vasc surgery at [facility] who recommended that he re establish care with providers at [facility]. Will refer to Dr Smith who has a local office but also associated with [place]. 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 Reviewed medical, surgical and social hx. Reviewed medications. Patient counseled on lifestyle measures, dietary restrictions, importance of compliance. Upto date on colon cancer screening H/O: CVA (cerebrovascular accident) 03/17/2023 Overview (12/16/2023): Last Assessment & Plan: On ASA, crestor. Now on Plavix for 21 days. Patient had recent admission for diplopia/blurred vision - likely TIA. No acute stroke on MRI Refer to neurology. Migraine without aura, intractable 03/17/2023 Overview (12/16/2023): Last Assessment & Plan: Patient reports 2 migraine COOPER at most per month. Uses imitrex as needed. On propranolol that helps with migraine prophylaxis too. No change, stable Obstructive sleep apnea 03/17/2023 Overview (12/16/2023): Last Assessment & Plan: Does not CPAP; Has anxiety r/t wearing anything on his face; Is interested in oral device for alterative management. Will research and get back with patient. Occlusion and stenosis of bilateral carotid alexander rajat 03/17/2023 Overview (12/16/2023): Last Assessment & Plan: Most recent carotic US 2020 - less than 50% stenosis. But right subclavian aneurysm and reversal of flow in vertebral artery noted. Asymptomatic. Prior hx of CVA. On ASA, statin. Other hyperlipidemia 03/17/2023 Overview (12/16/2023): Last Assessment & Plan: Rosuvastatin 20mg Denies myalgias. Continue Crestor. Polyneuropathy 03/17/2023 Seizure disorder 03/17/2023 Overview (12/16/2023): Last Assessment & Plan: H/o partial seizures. Not on any medications. Seizure free for years now. 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 Both procedures were discussed in detail. Social History Tobacco Use Types Packs/Day Years Used Date Smoking Tobacco: Former Pipe Cigars Smokeless Tobacco: Never Comments:Stopped because it was too expensive Alcohol Use Standard Drinks/Week Comments Not Currently 0 (1 standard drink = 0.6 oz pur e alcohol) not drank in years PHQ-2 Answer Date Recorded Patient Health Questionnaire-2 Score 0 09/22/2023 [place] Safety & Environment Answer Date Rec orded Fear of Current or Ex-Partner Not on file Emotionally Abused Not on file 06/23/2023 Physically Abused Not on file 06/23/2023 Sexually Abused Not on file 06/23/2023 Physically or Sexually Abused Not on file Sex and Gender Information Value Date Recorded Sex Assigned at Not on file Legal Sex Male 11:26 PM EDT Gender Identity Not on file Sexual Orientation Not on file Last Filed Vital Signs Vital Sign Reading Time Taken Comments Blood Pressure 112/80 12/20/2023 2:27 PM EDT Pulse 77 12/20/2023 2:27 PM EDT Temperature - - Respiratory Rate - - Oxygen Saturation 96% 12/20/2023 2:27 PM EDT Inhaled Oxygen Concentration - - Weight 105 kg (232 lb) 12/20/2023 2:27 PM EDT Height 172.7 cm (5' 8 ) 12/20/2023 2:27 PM EDT Body Mass Index 35.28 12/20/2023 2:27 PM EDT Plan of Treatment Upcoming Encounters Date Type Department Care Team (Late st Contact Info) Description 09/20/2024 2:20 PM EDT Appointment [facility] CT Imaging [address] [place] [address] 09/20/2024 2:50 PM EDT Appointment [facility] CT Imaging [address] [place] [address] 09/20/2024 3:15 PM EDT Follow-Up [facility] Vascular and Endovascular Surgery [address] [place] [address] Naveen Cooper MD [address] [place] [phone] Insurance [employer] MEDICARE Care Teams Office Machine Mechanic Relationship Specialty Start Date End Date Shaikh Dela Cruz MD [address] [place] [address] PCP - General 06/25/23
--- OUTSIDE RECORDS SUMMARY | 2024-09-19 08:27 | XMS_ITS | Encounter Summary ---
Author Organization [facility] Address [address] [place] [address] Care Team Providers Care Zoology Technical Officer Name Role Phone Shaikh JOSESITO Dela Cruz Primary Care Provider [phone] Reason for Visit * Reason Comments Med Refill Encounter Details Date Type Department Care Team (Late Contact Info) Description 08/11/2022 Refill [facility] Cardiology [address] [place] [phone] Jeana Multani, DESULFURIZER OPERATOR [address] [facility] [place] [address] Social History Tobacco Use Types Packs/Day Years Used Date Smoking Tobacco: Never Assessed Sex and Gender Information Value Date Recorded Sex Assigned at Not on file Legal Sex Male 11:26 PM EDT Gender Identity Not on file Sexual Orientation Not on file documented as of this encounter Plan of Treatment Upcoming Encounters Date Type Department Care Team (Late Contact Info) Description 09/20/2024 2:20 PM EDT Appointment [facility] CT Imaging [address] [place] [phone] 09/20/2024 2:50 PM EDT Appointment [facility] CT Imaging [address] [place] [address] 09/20/2024 3:15 PM EDT Follow-Up [facility] Vascular and Endovascular Surgery [address] [place] [address] Naveen Cooper MD [address] [facility] [place] [address] documented as of this encounter Visit Diagnoses Not on filedocumented in this encounter Care Teams Zoology Technical Officer Relationship Specialty Start Date End Date Shaikh Dela Cruz MD [address] [place] [phone] PCP - General 06/25/23 documented as of this encounter
--- OUTSIDE RECORDS SUMMARY | 2024-09-19 08:27 | XMS_ITS | Encounter Summary ---
Author Organization [facility] Address [address] [place] [address] Care Team Providers Care Tire Trucker Name Role Phone Shaikh JOSESITO Dela Cruz Primary Care Provider [phone] Reason for Visit * Reason Comments Med Refill Encounter Details Date Type Department Care Team (Late Contact Info) Description 08/10/2022 Refill [facility] [address] [place] [phone] Jeana Multani, SPECIALIST WOUND CARE [address] [facility] [place] [address] Social History Tobacco Use Types [...] Info) Description 09/20/2024 2:20 PM EDT Appointment [facility] CT Imaging [address] [place] [address] 09/20/2024 2:50 PM EDT Appointment [facility] CT Imaging [address] [place] [address] 09/20/2024 3:15 PM EDT Follow-Up [facility] Vascular and Endovascular Surgery [address] [place] [address] Naveen Cooper MD [address] [facility] [place] [address] documented as of this encounter Visit Diagnoses Not on filedocumented in this encounter Care Teams Tire Trucker Relationship Specialty Start Date End Date Shaikh Dela Cruz MD [address] [place] [address] PCP - General 06/25/23 documented as of this encounter
--- OUTSIDE RECORDS SUMMARY | 2024-09-19 08:27 | XMS_ITS | Clinical Summary ---
Author Organization [facility] Address [address] [place] [address] Phone Care Team Providers Care Childcare Worker Name Role Phone Shaikh JOSESITO Dela Cruz Primary Care Provider Social History Tobacco Use Types Packs/Day Years Used Date Smoking Tobacco: Never Assessed Sex and Gender Information Value Date Recorded Sex Assigned at Not on file Legal Sex Male 12:49 AM EST Gender Identity Not on file Sexual Orientation Not on file Last Filed Vital Signs Vital Sign Reading Time Taken Comments Blood Pressure 154/109 07/23/2022 3:01 PM EDT Pulse 75 07/23/2022 3:01 PM EDT Temperature 35.8 C (96.4 F) 07/23/2022 3:01 PM EDT Respiratory Rate - - Oxygen Saturation 97% 07/23/2022 3:01 PM EDT Inhaled Oxygen Concentration - - Weight 98.6 kg (217 lb 6 oz) 07/23/2022 3:01 PM EDT Height 174 cm (5' 8.5 ) 07/23/2022 3:01 PM EDT Body Mass Index 32.57 07/23/2022 3:01 PM EDT Plan of Treatment Health Maintenance Due Date Last Done Comments CT Colonography 1964 Colonoscopy 1964 Colorectal Cancer Screening 1964 FIT-DNA (Cologuard) 1964 FIT 1964 HIV Screening 1964 Lipid Panel 1964 Sigmoidoscopy 1964 Yearly Adult Physical 1964 MMR Vaccines (1 of 1 - Stand sharonda series) 1965 Hepatitis C Screening 1982 DTaP/Tdap/Td Vaccines (1 - Tdap) 1986 Pneumococcal Vaccine (1 of 1 - PCV) 2014 Zoster Vaccines (1 of 2) 2014 COVID-19 Vaccine (2023-2 5 season) 2023 Influenza Vaccine (Season Ended) 2024 RSV High Risk: (Elderly (60+ ) or Population) (1 - 1-dose 75+ series) 2039 HIB Vaccines Aged Out No longer eligi ble based on patient's age to complete this topic HPV Vaccines Aged Out No longer eligi ble based on patient's age to complete this topic Hepatitis A Vaccines Aged Out No long er eligible based on patient's age to complete this topic Hepatitis B Vaccines Aged Out No long er eligible based on patient's age to complete this topic IPV Vaccines Aged Out No longer eligi ble based on patient's age to complete this topic Meningococcal Vaccine Aged Out No eugene jose eligible based on patient's age to complete this topic Rotavirus Vaccines Aged Out No longer eligible based on patient's age to complete this topic Care Teams Childcare Worker Relationship Specialty Start Date End Date Shaikh Dela Cruz MD PCP - General 07/23/22
--- OUTSIDE RECORDS SUMMARY | 2024-09-19 08:27 | XMS_ITS | Encounter Summary ---
Author Organization [facility] Address [address] [place] [address] Care Team Providers Care Gis Mapping Technician Name Role Phone Shaikh JOSESITO Dela Cruz Primary Care Provider [phone] Shaikh JOSESITO Dela Cruz Primary Care Provider [phone] Ephraim Martin MD Primary Care Provider [phone] Skylar Acevedo BOILER HOUSE OPERATOR Unavailable [phone] Encounter Details Date Type Department Care Team (Late st Contact Info) Description 03/02/2023 Clinisync Result Encounter [facility] External Department Unsolicited Shaikh Dela Cruz MD [address] [place] [address] Social History Tobacco Use Types Packs/Day Years Used Date Smoking Tobacco: Former Cigarettes Alcohol Use Standard Drinks/Week Comments Never 0 [...] 10/09/2024 1:20 PM EDT Office Visit [facility] [address] [place] [address] Jazz Mcnamara, BOILER HOUSE OPERATOR [address] [place] [address] 07/16/2025 4:15 PM EDT Office Visit [facility] [address] [place] [phone] Jazz Mcnamara, BOILER HOUSE OPERATOR [address] [place] [address] documented as of this encounter Procedures Procedure Name Priority Date/Time Associated Diagnosis Comments XR KNEE 4+ VIEWS BILATERAL 03/02/2023 8:07 PM EST documented in this encounter Results * XR knee 4+ views bilateral (03/02/2023 8:07 PM EST) Anatomical Region Laterality Modality Lower Extremities, Knee Bilateral Radiogra phic Imaging 03/02/2023 8:07 PM EST Narrative 03/02/2023 8:10 PM EST [address] [address] XRay Report Signed Patient: TAJ SUN MR#: [id number] : 1965 Acct:[id number] Age/Sex: 57 / M ADM Date: 03/02/23 Loc: LAB Attending Dr: Shaikh Lanie Keller Ordering Physician: Shaikh Krishna Dela Cruz Date of Service: 03/02/23 Procedure(s): XR knee DANIELLE 4V Accession Number(s): [id number] cc: Shaikh Krishna Dela Cruz [address] [address] Patient Name: TAJ SUN MRN: [id number] date: 1965 Sex: M Assigned Patient Location: LAB Current Patient Location: LAB Accession/Order Number: [id number] Exam Date: 03/02/2023 14:30 Report Date: 03/02/2023 20:07 At the request of: SHAIKH LANIE Procedure: XR knee DANIELLE 4V EXAM: XR knee DANIELLE 4V HISTORY: Bilateral Knee Pain M25.561 COMPARISON: Right knee radiograph dated 11/25/2012 TECHNIQUE: 3 views of the right knee and 3 views of the left knee were obtained. FINDINGS : Right knee: There is severe joint space narrowing with marginal tricompartmental spurring along with spurring of the tibial spines indicating severe osteoarthritis. There is asymmetricprominence of the cortex with evidence of prior surgery as seen in the radiograph dated 11/25/2012.. Left knee: There is mild medial compartment joint space narrowing with marginal spurring along with spurring of the tibial spines. XR/XR knee DANIELLE 4V IMPRESSION: 1. 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 2. Mild osteoarthritis of the left knee. Electronically authenticated by: JAVAN VÁZQUEZ Date: 03/02/2023 20:07 Dictated By: Javan Vázquez M.D. Signed By: 03/02/232009 DD/ 06 TD/TT: Drafter Detail: Procedure Note Radiology, Radiologist, MD - 03/03/2023 [place] [address] XRay Report Signed Patient: TAJ SUN UMR#: [id number] : 1965Acct:[id number] Age/Sex: 57 / MADM Date: 03/02/23 Loc: LAB Attending Dr: Shaikh Lanie Keller Ordering Physician: Shaikh Krishna Dela Cruz Date of Service: 03/02/23 Procedure(s): XR knee DANIELLE 4V Accession Number(s): [id number] cc: Shaikh Krishna Dela Cruz The [place] [id number] Patient Name: TAJ SUN MRN: [id number] date: 1965 Sex: M Assigned Patient Location: LAB Current Patient Location: LAB Accession/Order Number: [id number] Exam Date: 03/02/2023 14:30 Report Date: 03/02/2023 20:07 At the request of: SHAIKH LANIE Procedure: XR knee DANIELLE 4V EXAM: XR knee DANIELLE 4V HISTORY: Bilateral Knee Pain M25.561 COMPARISON: Right knee radiograph dated 11/25/2012 TECHNIQUE: 3 views of the right knee and 3 views of the left knee were obtained. FINDINGS : Right knee: There is severe joint space narrowing with marginal tricompartmental spurring along with spurring of the tibial spinesindicating severe osteoarthritis. There is asymmetricprominence of the cortex with evidence of prior surgery as seen in the radiograph dated 11/25/2012.. Left knee: There is mild medial compartment joint space narrowing with marginal spurring along with spurring of the tibial spines. XR/XR knee DANIELLE 4V IMPRESSION: 1. 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 2. Mild osteoarthritis of the left knee. Electronically authenticated by: JAVAN VÁZQUEZ Date: 03/02/2023 20:07 Dictated By: Javan Vázquez M.D. Signed By:03/02/232009 DD/ 06 TD/TT: Drafter Detail: Shaikh Lanie BELLAMY IMG XR PROCEDURES Final Result documented in this encounter Visit Diagnoses Not on filedocumented in this encounter Care Teams Gis Mapping Technician Relationship Specialty Start Date End Date Shaikh Dela Cruz MD PCP - General Internal Medicine 10/16/22 06/20/23 Shaikh Dela Cruz MD [address] [place] [address] PCP - General Internal Medicine 06/21/23 10/31/23 Ephraim Martin MD [address] [place] [address] PCP - General Family Medicine 11/01/23 Skylar Acevedo NP [address] [place] [address] Nurse Practitioner Family Medicine 11/01/23 documented as of this encounter
--- OUTSIDE RECORDS SUMMARY | 2024-09-19 08:27 | XMS_ITS | Encounter Summary ---
Author Organization [facility] Address [address] [place] [address] Care Team Providers Care Net Software Engineer Name Role Phone Shaikh JOSESITO Dela Cruz Primary Care Provider [phone] Shaikh JOSESITO Dela Cruz Primary Care Provider [phone] Ephraim Martin MD Primary Care Provider [phone] Skylar Acevedo THERMODYNAMICS PROFESSOR Unavailable [phone] Encounter Details Date Type Department Care Team (Late st Contact Info) Description 03/09/2023 Orders Only [facility] [address] [place] [address] Shaikh Dela Cruz MD [address] [place] [address] Social History Tobacco Use Types Packs/Day Years [...] [facility] [address] [place] [address] Jazz Mcnamara, THERMODYNAMICS PROFESSOR [address] [place] [address] 07/16/2025 4:15 PM EDT Office Visit [facility] [address] [place] [phone] Jazz Mcnamara, THERMODYNAMICS PROFESSOR [address] [place] [address] documented as of this encounter Procedures Procedure Name Priority Date/Time Associated Diagnosis Comments MISCELLANEOUS LAB TEST Routine 03/02/2023 2:37 PM EST XR KNEE 4+ VIEWS RIGHT Routine 03/02/2023 2:35 PM EST documented in this encounter Results * - Miscellaneous Test (03/02/2023 2:37 PM EST) Shaikh Lanie BELLAMY LAB BLOOD ORDERABLES Final Resu lt * XR knee 4+ views right (03/02/2023 2:35 PM EST) Anatomical Region Laterality Modality Lower Extremities, Knee Right Radiogra phic Imaging us Shaikh Lanie BELLAMY IMG XR PROCEDURES Final Result documented in this encounter Visit Diagnoses Not on filedocumented in this encounter Care Teams Net Software Engineer Relationship Specialty Start Date End Date Shaikh Dela Cruz MD PCP - General Internal Medicine 10/16/22 06/20/23 Shaikh Dela Cruz MD [address] [place] [address] PCP - General Internal Medicine 06/21/23 10/31/23 Ephraim Martin MD [address] [place] [address] PCP - General Family Medicine 11/01/23 Skylar Acevedo NP [address] [place] [address] Nurse Practitioner Family Medicine 11/01/23 documented as of this encounter
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
--- OUTSIDE RECORDS SUMMARY | 2024-09-19 08:27 | XMS_ITS | Clinical Summary ---
Demographics Address [address] [place] [address] Home Phone Preferred Language ENG Marital Status Adventism Affiliation Unknown Race White Ethnic Group Not or Lati no Author Organization [facility] Address [address] [place], [place] [address] Care Team Providers Care Pull Over Machine Operator Name Role Phone Jazz Mcnamara Samara RICHTER Primary Care Provider [phone] Allergies Active Allergy Reactions Criticality Noted Date Comments Penicillins Itching 06/25/2008 Sulfa (Sulfonamide Antibiotics) Hives 05/29 Medications lamotrigine(MANN ICTAL 100 MG TAB) 5 tablets a day at bedtime 0 06/25/2008 Active tramadol hcl(ULTRAM 50 MG TAB) take one to two tablets 4 times a day 0 06/25/2008 Active pregabalin(LYRI CA 100 MG CAP) three times a day 0 06/25/2008 Active TRAZODONE 50 MG TAB one half a tablet at bedtime 0 06/25/2008 Active tizanidine hcl(ZANAFLEX 4 MG TAB) Take two tablets at bedtime 0 06/25/2008 Active esomeprazole mag trihydrate(NEXI UM 40 MG CAP) one tablet at bed time 0 06/25/2008 Active montelukast sodium(SINGULAI R 10 MG TAB) one tablet at bedtime 0 06/25/2008 Active lisinopril(PRIN IVIL 10 MG TAB) take 1\2 tablet at bedtime 0 06/25/2008 Active fluticasone/jon meterol(ADVAIR DISKUS 100 MCG-50 MCG/DOSE FOR INHALATION) take two puffs twice a day 0 06/25/2008 Active FLUTICASONE 110 MCG/ACTUATION AEROSOL INHALER two puffs twice a day 0 06/25/2008 Active ALBUTEROL 90 MCG/ACTUATION AEROSOL INHALER TWO PUFFS TWICE A DAY 0 06/25/2008 Active fluticasone propionate(FLON ASE 50 MCG/ACTUATION NASAL SPRAY) Use daily as directed. 0 06/25/2008 Active Social History Tobacco Use Types Packs/Day Years Used Date Smoking Tobacco: Never Assessed Sex and Gender Information Value Date Recorded Sex Assigned at Not on file Legal Sex Male 9:47 AM EST Gender Identity Not on file Sexual Orientation Not on file Last Filed Vital Signs Vital Sign Reading Time Taken Comments Blood Pressure 100/62 06/25/2008 2:26 PM EDT Pulse 77 06/25/2008 2:26 PM EDT Temperature 36.3 C (97.3 F) 06/25/2008 2:26 PM EDT Respiratory Rate 16 06/25/2008 2:26 PM EDT Oxygen Saturation 98% 06/25/2008 2:57 PM EDT Inhaled Oxygen Concentration - - Weight 91.2 kg (201 lb) 06/25/2008 7:32 AM EDT Height - - Body Mass Index - - Plan of Treatment Health Maintenance Due Date Last Done Comments Anxiety Screening 1982 Depression Screening 1982 HIV Screening 1982 Hepatitis C Screening 1982 DTaP,Tdap,Td Vaccine (1 - Tdap) [address] Colonography 2009 Cologuard (FIT-DNA) 2009 Colonoscopy 2009 Colorectal Cancer Screening 2009 Diabetes Screening 2009 Fecal Occult Blood 2009 Prostate Cancer Screening Discussion 2009 Sigmoidoscopy 2009 Pneumococcal Vaccine: 50+ (1 of 1 - PCV) 2014 Shingrix Vaccine (1 of 2) 2014 Covid-19 Vaccine (1 - 2023- season) 2023 Influenza Vaccine (Season Ended) 2024 RSV Vaccine (1 - 1-dose 75+ series) 2039 Insurance * Guarantor: Jean Sun Account Type Relation to Patient Date of Phone Billing Address Personal/Family Self 1965 [address] [place], [place] [id number] [employer] MED[employer]ARE ADVANTAGE PPO Care Teams Pull Over Machine Operator Relationship Specialty Start Date End Date Jazz Mcnamara, MALTER OPERATOR PCP - General Family Medicine 05/24/14
--- OUTSIDE RECORDS SUMMARY | 2024-09-19 08:27 | XMS_ITS | Clinical Summary ---
Author Organization [facility] Address [address] [place] [address] Care Team Providers Care Rail Layer Name Role Phone Shaikh JOSESITO Dela Cruz Primary Care Provider Allergies Active Allergy Reactions Criticality Noted Date [...] He was seen by [facility] who recommended that he re establish care with providers at [facility]. Will refer to Dr Smith who has a local office but also associated with [place]. 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 Family History Medical History Relation Name Comments Cancer Father Parvin Sun Relation Name Status Comments Father Parvin Sun Social History Tobacco Use Types Packs/Day Years [...] [facility] [address] [facility] [place] [address] 09/20/2024 2:50 PM EDT Appointment [facility] CT Imaging [address] [place] [address] 09/20/2024 3:15 PM EDT Follow-Up [facility] [place] Vascular and Endovascular Surgery [address] [place] [address] Naveen Cooper MD [address] [place] [address] Health Maintenance Due Date Last Done Comments CT Colonography 1965 Colonoscopy 1965 FIT-DNA 1965 FOBT 1965 Medicare Annual Wellness (AWV) 1965 Sigmoidoscopy 1965 Zoster Vaccines (1 of 2) 2014 COVID-19 Vaccine ( - 2023-2 5 season) 2023 Colorectal Cancer Screening 01/26/2024 FIT 01/26/2024 01/25/2023 Depression Screening 09/21/2024 09/22/2023 Influenza Vaccine (Season Ended) 2024 01/07/2018, 11/29/2014 Adult Tetanus 08/14/2033 08/15/2023, 06/12/2013, 11/27/2011 HIB Vaccines Aged Out No longer eligi ble based on patient's age to complete this topic HPV Vaccines Aged Out No longer eligi ble based on patient's age to complete this topic IPV Vaccines Aged Out No longer eligi ble based on patient's age to complete this topic Meningococcal B Vaccine Aged Out No l onger eligible based on patient's age to complete this topic Meningococcal Vaccine Aged Out No eugene jose eligible based on patient's age to complete this topic Pneumococcal Vaccine: Pediatrics (0 to 5 Years) and At-Risk Patients (6 to 64 Years) Aged Out No longer eligible b ased on patient's age to complete this topic Rotavirus Vaccines Aged Out No longer eligible based on patient's age to complete this topic Insurance [employer] MEDICARE Care Teams Rail Layer Relationship Specialty Start Date End Date Shaikh Dela Cruz MD [address] [place] [address] PCP - General 06/25/23
--- NOTE | 2024-09-19 08:37 | XR_ITS ---
The [address] [address] Patient Name: TAJ KOTHARI MRN: [id number] date: 1965 Sex: M Assigned Patient Location: ER Current Patient Location: ED.MAIN Accession/Order Number: [id number] Exam Date: 09/19/2024 09:44 Report Date: 09/19/2024 09:47 At the request of: JANES MONAHAN MD Procedure: XR chest 1V PORTABLE AP ERECT CHEST 0829 hours CLINICAL HISTORY: Shortness of breath COMPARISON: CT chest 12/18/2021 The heart is within normal limits. A pericardial fat pad is present on the left. There is no vascular congestion. There is minor atelectasis and/or scarring. No consolidation is present. There is no sizable effusion or pneumothorax. The osseous structures are intact. Hemostasis clips are present in the supraclavicular region on the right. XR/XR chest 1V IMPRESSION: NO ACUTE FINDINGS Impression dictated by: Yael Thayer M.D. 09/19/2024 9:47 AM Dictation Location: [place] [address] Electronically authenticated by: [id number] Y Date: 09/19/2024 09:47
--- NOTE | 2024-09-19 08:37 | ECG_ITS ---
The [facility] Test Date: 2024-09-19 Pat Name: TAJ KOTHARI Department: Room: - Gender: Male Waiver Analyst: : 1965 Requested By: 1030 Order Number: [id number] Reading MD: ARA BLUM M.D. Measurements Intervals [place] Rate: 77 P: 16 NM: 190 QRS: 71 QRSD: 118 T: 28 QT: 388 QTc: 420 Interpretive Statements 1100 Sinus rhythm 2440 Incomplete right bundle branch block 3614 Cannot rule out inferior myocardial infarction, age undetermined 9150 abnormal ECG Compared to ECG 08/16/2023 14:53:53 No significant changes Electronically Signed On 09-19-2024 9:32:22 EDT by ARA BLUM M.D.
--- NOTE | 2024-09-19 08:38 | ED_ITS ---
HPI HPI - General Adult General Chief complaint: Shortness of Breath/Dyspnea Stated complaint: SOB DIFFICULTY BREATHING Time Seen by Provider: 09/19/24 08:31 Mode of arrival: ambulance History of Present Illness HPI narrative: 59-year-old male presents to the emergency department for difficulty breathing. This began last night. He lives in a trailer and the air conditioning is at the other end of his trailer. He was given aerosol treatment by paramedics and he feels better now. He has not had a fever or productive cough. He quit smoking years ago and does not use aerosol treatments. Related Data Home Medications ?Medication ?Instructions ?Recorded ?Confirmed propranolol 120 mg capsule,24 120 mg PO DAILY 08/16/23 09/19/24 hr,extended release rosuvastatin 20 mg tablet 20 mg PO DAILY 08/16/2308/28 aspirin 81 mg capsule 81 mg PO DAILY 08/17/2308/28 sumatriptan succinate 100 mg tablet 100 mg PO PRN 08/2809/19/24 Previous Rx's ?Medication ?Instructions ?Recorded clopidogrel 75 mg tablet (Plavix) 75 mg PO DAILY #20 t abs 08/17/23 albuterol sulfate 90 mcg/actuation 2 inh inhalation Q4 H PRN shortness 09/19/24 aerosol inhaler of breath or wheezing #8.5 g emiliana prednisone 10 mg tablet See Rx Instructions .Route 0 09/19/24 .COMPLEX #30 tabs Allergies Allergy/AdvReac Type Severity Reaction Status Date / Time Penicillins Allergy Intermediate Hives Verified 09/19/24 08:21 Sulfa (Sulfonamide Allergy Mild Hives Verified 09/19/24 08:21 Antibiotics) chocolate Allergy Sneezing Verified 09/19/24 08:21 mustard seed Allergy Intermediate Hives Uncoded 09/19/24 08:21 beer Allergy hemoptsis Uncoded 09/19/24 08:21 horse radish Allergy Vomiting Uncoded 09/19/24 08:21 Opioid HPI Opioid Management Most Recent Opioid Data: Last Pain Scale 8 Today, 08:32 Last ED Pain Assessment Today, 08:32 Last ORT Total Score 1 08/16/23, 18:16 Last ORT Risk Category Low Risk 08/16/23, 18:16 Review of Systems ROS Narrative A ten point review of systems is negative except as noted above. 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 ?Z87.74 - Personal history of (corrected) congenital malformations of heart and circulatory system (ICD-10) Broken ankle ?S82.899A - Other fracture of unspecified lower leg, initial encounter for closed fracture (ICD-10) Broken femur ?S72.90XA - Unspecified fracture of unspecified femur, initial encounter for closed fracture (ICD-10) Broken arm ?S42.309A - Unspecified fracture of shaft of humerus, unspecified arm, initial encounter for closed fracture (ICD-10) CVA (cerebral vascular accident) ?I63.9 - Cerebral infarction, unspecified (ICD-10) Surgical History (Updated 08/16/23 @ 18:14 by Marva Samuels LPN) H/O vasectomy ?Z98.52 - Vasectomy status (ICD-10) Hx of cholecystectomy ?Z90.49 - Acquired absence of other specified parts of digestive tract (ICD- 10) Family History (Updated 08/16/23 @ 18:09 by Marva Samuels LPN) Other Family history not known due to adoption Social History (Updated 08/16/23 @ 18:16 by Marva Samuels LPN) Smoking status: Former smoker Non-prescribed substance use: denies use Previous occupational history: disabled Known occupational exposures/hazards: No Highest level of school completed/degree received: some college, no degree Are you now , , , , never or living with a partner: In a typical week, how many times do you talk on the telephone with family, friends, or neighbors: once per week How often do you get together with friends or relatives: once per week How often do you attend spiritism or christianity services: never Do you belong to any clubs or organizations such as spiritism groups unions, fraternal or athletic groups, or school groups: no Total score: 0 Score interpretation: A score of less than or equal to 1 indicates the most socially isolated. Little interest or pleasure in doing things: not at all Feeling down, depressed, or hopeless: not at all Feel stressed/tense/nervous/anxious/difficulty sleeping: not at all Due to disability, difficulty making decisions: No Do you think of yourself as: straight/heterosexual Gender Identity: male Exam Narrative Exam Narrative: Nurses note and vital signs reviewed and patient is not hypoxic. General: The patient appears well and in no apparent distress. Patient is resting comfortably on cart. Skin: Warm, dry, no pallor noted. There is no rash noted. Head: Normocephalic, atraumatic Eye: Normal conjunctiva, no drainage Ears, Nose, Mouth, and Throat: oral mucosa is moist. Nares patent. Cardiovascular: Regular Rate and Rhythm Respiratory: Good air movement present. No rhonchi appreciated. Back: non-tender GI: Soft and nontender Musculoskeletal: The patient has no evidence of calf tenderness, no pitting edema, symmetrical pulses noted bilaterally Neurological: A&O, normal speech Psychiatric: Cooperative Constitutional Vital Signs, click to edit/add: Last Vital Signs Temp 98.8 F 09/19/24 08:24 Pulse 82 09/19/24 08:24 Resp 20 09/19/24 08:24 BP 139/101 H 09/19/24 08:24 Pulse Ox 92 L 09/19/24 08:24 O2 Del Method Room Air 09/19/24 08:24 Course Vital Signs Vital signs: Vital Signs Temperature 98.8 F 09/19/24 08:24 Pulse Rate 82 09/19/24 08:24 Respiratory Rate 20 09/19/24 08:24 Blood Pressure 139/101 H 09/19/24 08:24 Pulse Oximetry 92 L 09/19/24 08:24 Oxygen Delivery Method Room Air 09/19/24 08:24 Temperature 98.8 F 09/19/24 08:24 Pulse Rate 82 09/19/24 08:24 Respiratory Rate 20 09/19/24 08:24 Blood Pressure 139/101 H 09/19/24 08:24 Pulse Oximetry 92 L 09/19/24 08:24 Oxygen Delivery Method Room Air 09/19/24 08:24 Medical Decision Making MDM Narrative Medical decision making narrative: The patient feels improved. I suspect that part of his issue is that his air conditioner is at the other end of his trailer. He was given aerosol treatment here as well as IV Solu-Medrol and is discharged home on prednisone and albuterol. He feels improved and his workup is negative. Treatment diagnosis and follow-up were discussed with the patient. Differential Diagnosis Differential Diagnosis: COPD exacerbation, pneumonia, heat exposure Lab Data Lab results reviewed: Yes I reviewed the patient's lab results Labs: Lab Results 09/19/24 Range/Units 08:49 WBC 7.8 (4.0-11.0) 10^3/uL RBC 5.99 (4.70-6.10) 10^6/uL Hgb 16.0 (14.0-18.0) g/dL Hct 49.9 (42.0-54.0) % MCV 83.3 (80.0-94.0) fL MCH 26.7 (25.9-34.0) pg MCHC 32.1 (29.9-35.2) g/dL RDW 14.7 (11.0-15.0) % Plt Count 254 (150-450) 10^3/uL MPV 9.1 L (9.5-13.5) fL Neut % (Auto) 74.7 (43.0-75.0) % Lymph % (Auto) 11.4 L (20.5-60.0) % Wy[place] % (Auto) 7.4 (1.7-12.0) % Eos % (Auto) 5.3 (0.9-7.0) % Baso % (Auto) 0.6 (0.2-2.0) % Neut # (Auto) 5.8 (1.4-6.5) 10^3/uL Lymph # (Auto) 0.9 L (1.2-3.8) 10^3/uL [place] # (Auto) 0.6 (0.3-0.8) 10^3/uL Eos # (Auto) 0.4 (0.0-0.7) 10^3/uL Baso # (Auto) 0.1 (0.0-0.1) 10^3/uL Abs Immat Gran (auto) 0.05 H (0.00-0.03) 10^3/uL Imm/Tot Granulo (auto) 0.6 H (0.0-0.5) % Sodium 147 H (136-145) mmol/L Potassium 4.4 (3.5-5.1) mmol/L Chloride 110 H (98-107) mmol/L Carbon Dioxide 28.3 (21.0-32.0) mmol/L Anion Gap 13.1 BUN 19.0 H (7.0-18.0) mg/dL Creatinine 1.14 (0.70-1.30) mg/dL Est GFR ( Amer) >60 (>=60 mL/min/1.73m^2) Est GFR (Non-Af Amer) >60 (>=60 mL/min/1.73m^2) BUN/Creatinine Ratio 16.7 Glucose 131 H (74-106) mg/dL Calcium 9.2 (8.5-10.1) mg/dL Imaging Data Chest x-ray: Radiologist's impression: ITS Impressions Chest X-Ray 09/19/24 08:37 IMPRESSION: NO ACUTE FINDINGS Impression dictated by: Yael Thayer M.D. 09/19/2024 9:47 AM Dictation Location: [place] [address] Electronically authenticated by: [id number] Y Date: 09/19/2024 09:47 ECG Data Attestation: I personally reviewed and interpreted this ECG as follows: (EKG on my interpretation shows sinus rhythm with rate of 77 and no acute change) Critical Care Time Critical Care Time Critical Care Time: Yes Total Critical Care Time: 35 Attestation: Due to the high probability of sudden and clinically significant deterioration in the patient's condition he/she required the highest level of my preparedness to intervene urgently I provided critical care time including documentation time, medication orders and management, reevaluation, vital sign assessment, ordering and reviewing of lab tests, ordering and reviewing of x-ray studies, and admission orders. Aggregate critical care time is 35 minutes including only time during which I was engaged in work directly related to his/her care and did not include time spent treating other patients simultaneously. Discharge Plan Discharge Chief Complaint: Shortness of Breath/Dyspnea Clinical Impression: COPD (chronic obstructive pulmonary disease), Heat exposure Patient Disposition: Home, Self-Care Time of Disposition Decision: 10:03 Condition: Good Mode of Transportation: Private Vehicle Prescriptions / Home Meds: New prednisone 10 mg tablet See Rx Instructions .ROUTE .COMPLEX Qty: 30 0RF Rx Instructions: 4 by mouth daily for three days then 3 by mouth daily for three days then 2 by mouth daily for three days then 1 by mouth daily for three days albuterol sulfate 90 mcg/actuation HFA aerosol inhaler 2 inh inhalation Q4H PRN (Reason: shortness of breath or wheezing) Qty: 8.5 0RF No Action sumatriptan succinate 100 mg tablet 100 mg PO PRN propranolol 120 mg capsule,extended release 24hr 120 mg PO DAILY rosuvastatin 20 mg tablet 20 mg PO DAILY aspirin 81 mg capsule 81 mg PO DAILY clopidogrel [Plavix] 75 mg tablet 75 mg PO DAILY Qty: 20 0RF Rx Instructions: Take until gone then stop Print Language: Armenian Instructions: COPD (Chronic Obstructive Pulmonary Disease) (ED) Referrals: Physician,Non-Staff, [Physician] - 1 week
[2024-09-19] MEDS: METHYLPREDNISOLONE SOD SUCC PF 125 MG/2 ML VIAL IVP (08:43)
[2024-09-19 08:57] LABS: Basophils Absolute Auto 0.1 10^3/uL (0.0-0.1); Basophils Percent Auto 0.6 % (0.2-2.0); Eosinophils Absolute Auto 0.4 10^3/uL (0.0-0.7); Eosinophils Percent Auto 5.3 % (0.9-7.0); Hematocrit 49.9 % (42.0-54.0); Immature Granulocytes Abs Auto 0.05 10^3/uL (0.00-0.03); Immature Granulocytes Pct Auto 0.6 % (0.0-0.5); Lymphocytes Absolute Auto 0.9 10^3/uL (1.2-3.8); Lymphocytes Percent Auto 11.4 % (20.5-60.0); Mean Corpuscular HGB Conc 32.1 g/dL (29.9-35.2); Mean Corpuscular Hemoglobin 26.7 pg (25.9-34.0); Mean Corpuscular Volume 83.3 fL (80.0-94.0); Mean Platelet Volume 9.1 fL (9.5-13.5); Monocytes Absolute Auto 0.6 10^3/uL (0.3-0.8); Monocytes Percent Auto 7.4 % (1.7-12.0); Neutrophils Absolute Auto 5.8 10^3/uL (1.4-6.5); Neutrophils Percent Auto 74.7 % (43.0-75.0); Platelet Count 254 10^3/uL (150-450); Red Blood Count 5.99 10^6/uL (4.70-6.10); Red Cell Distribution Width 14.7 % (11.0-15.0); White Blood Count 7.8 10^3/uL (4.0-11.0)
[2024-09-19 09:08] LABS: Anion Gap 13.1; BUN Creatinine Ratio 16.7; Calcium 9.2 mg/dL (8.5-10.1); Carbon Dioxide 28.3 mmol/L (21.0-32.0); Chloride 110 mmol/L (98-107); Estimated GFR (African America >60 (>=60 mL/min/1.73m^2); Estimated GFR (Non-African Ame >60 (>=60 mL/min/1.73m^2); Glucose 131 mg/dL (74-106); Potassium 4.4 mmol/L (3.5-5.1); Sodium 147 mmol/L (136-145)
[2024-09-19] MEDS: ALBUTEROL SULFATE 2.5 MG/3 ML VIAL NEB IH (09:37)
== END 2024-09-19 10:28 | disposition home or self-care (01) ==
PROVIDERS: Emergency Provider Emergency Medicine; PCP Nurse Practitioner
DX: J44.9 Chronic obstructive pulmonary disease, unspecified (principal); R06.02 Shortness of breath; Z98.52 Vasectomy status; Z90.49 Acquired absence of other specified parts of digestive tract; Z87.891 Personal history of nicotine dependence; T67.9XXA Effect of heat and light, unspecified, initial encounter; X30.XXXA Exposure to excessive natural heat, initial encounter
CPT/HCPCS: 36415; 71045; 80048; 85025; 93005; 94640; 96374; 99285; J2919